=== PATIENT | male | born 1945 | race Caucasian/White ===

== ENCOUNTER → 2021-06-21 10:43 | Outpatient (CLI) | payer MEDICARE, SELFPAY ==
--- NOTE | ~2021-06-21 | XR_ITS ---
EXAMINATION: XR chest 2V 06/21/2021 11:14 INDICATION: Chest pain PROCEDURE: 2 view chest COMPARISON: No prior studies for comparison. FINDINGS: The lungs are clear. The cardiomediastinal silhouette is within normal limits. There are no pleural effusions. There is no pneumothorax suspected. IMPRESSION: 1: NO ACUTE CARDIOPULMONARY DISEASE. Reviewed, dictated and finalized at location B.
== END ==
PROVIDERS: PCP Family Medicine; Visit Provider Family Medicine
DX: R07.9 Chest pain, unspecified (principal)
CPT/HCPCS: 71046

== ENCOUNTER 2022-01-10 01:16 | Day surgery (SDC) | payer MEDICARE, SELFPAY ==
[2021-12-06 14:11] VITALS: BMI 25.7
--- NOTE | 2021-12-25 13:20 | PC.NURSE ---
Patient has updated med list and instructions clarified.
--- NOTE | 2022-01-09 17:11 | PM.HPGS ---
History of Present Illness History of Present Illness Consent: Risks, benefits, and alternatives have been discussed and questions answered. Patient agrees to proceed with procedure. Chief complaint: neoplasm screening Narrative: Leandro Salinas is a 76 year old male referred for colon cancer screening. His last colonoscopy was 10 years ago Review of Systems Review of Systems: All systems reviewed & are unremarkable except as noted in HPI and below PMFSH Past Medical History Medical History BPH (benign prostatic hyperplasia) CAD (coronary artery disease) Hyperlipidemia Hypertension Social History Social History Smoking packs per day: 2 Smoking cigarettes per day: 40.0 Smoking status: Former smoker Tobacco type: cigarettes Alcohol intake: current Drinks per week: 1 Substance use: never Substance use type: does not use Living arrangements: with family Spiritual care concerns: No Meds Home Medications and Allergies Home Medications Medication Instructions Recorded Confirmed Type amlodipine 10 mg tablet 5 mg PO DAILY 07/28/20 01/10/22 History aspirin 81 mg tablet,delayed 81 mg PO DAILY 07/28/20 12/06/21 History release (Adult Aspirin Regimen) atorvastatin 10 mg tablet 10 mg PO DAILY 07/28/20 12/06/21 History lisinopril 10 mg tablet 10 mg PO DAILY 07/28/20 12/06/21 History metoprolol succinate 25 mg 25 mg PO DAILY 07/28/20 01/10/22 History tablet,extended release 24 hr ferrous sulfate 325 mg (65 mg 325 mg PO DAILY 12/06/21 12/06/21 History iron) tablet tamsulosin 0.4 mg capsule 0.4 mg PO DAILY 12/06/21 12/06/21 History Allergies Allergy/AdvReac Type Severity Reaction Status Date / Time Penicillins Allergy Intermediate ITCHING, Verified 12/06/21 13:57 REDNESS,SWELLING Exam Resp: Auscultation: clear to auscultation bilaterally Cardio: Rate: regular rate Rhythm: regular rhythm GI: GI Palp: Yes Soft to palpation and No Tenderness to palpation present (GI) Assessment and Plan Assessment and plan (1) Colon cancer screening: Code(s): Z12.11 - Encounter for screening for malignant neoplasm of colon Status: Acute Assessment and Plan: Colonoscopy with possible biopsy or polypectomy or cautery or injection of substances.
[2022-01-10 06:23] VITALS: BP 148/91; PULSE 90; RESP 20; TEMP 36.4; O2SAT 100
[2022-01-10] MEDS: LACTATED RINGERS 1,000 ML 150 ML IV CONT (06:31)
--- NOTE | 2022-01-10 07:14 | P.PNAN_ITS ---
Anes - Initial Pre Proc Eval Procedure: Operation Date: 01/10/22 07:30 Proposed Procedures p Screening Colonoscopy - Joshua Tomlinson MD Date/Time: 01/10/22 07:14 Surgeon: Joshua Tomlinson MD Pre Op Diagnosis: neoplasm screening Patient Data Age: 76 Gender: M Height: 1.65 m Weight: 70 kg Last Vital Signs Temp 36.4 C L 01/10/22 06:23 Pulse 90 01/10/22 06:23 Resp 20 01/10/22 06:23 BP 148/91 H 01/10/22 06:23 Pulse Ox 100 01/10/22 06:23 O2 Del Method Room Air 01/10/22 06:23 Allergies Allergy/AdvReac Type Severity Reaction Status Date / Time Penicillins Allergy Intermediate ITCHING, Verified 12/06/21 13:57 REDNESS,SWELLING Home Medications Medication Instructions Recorded Confirmed Type amlodipine 10 mg tablet 5 mg PO DAILY 07/28/20 01/10/22 History aspirin 81 mg tablet,delayed 81 mg PO DAILY 07/28/20 12/06/21 History release (Adult Aspirin Regimen) atorvastatin 10 mg tablet 10 mg PO DAILY 07/28/20 12/06/21 History lisinopril 10 mg tablet 10 mg PO DAILY 07/28/20 12/06/21 History metoprolol succinate 25 mg 25 mg PO DAILY 07/28/20 01/10/22 History tablet,extended release 24 hr ferrous sulfate 325 mg (65 mg 325 mg PO DAILY 12/06/21 12/06/21 History iron) tablet tamsulosin 0.4 mg capsule 0.4 mg PO DAILY 12/06/21 12/06/21 History Patient hx anesthesia problems: none Family hx anesthesia problems: none Results Review: All pre-operative results and documents have been reviewed as part of the pre- operative evaluation. [facility] Past Medical History Medical History BPH (benign prostatic hyperplasia) CAD (coronary artery disease) Hyperlipidemia Hypertension Social History Social History (Updated 01/10/22 @ 07:24 by Jasson Clancy DO) Smoking packs per day: 1 Smoking cigarettes per day: 20.0 Years smoked: 20 Smoking pack-years: 20.00 Smoking status: Former smoker Tobacco type: cigarettes Smoking end date: 04/08/85 Alcohol intake: current Drinks per week: 1 Substance use: never Substance use type: does not use Living arrangements: with family Spiritual care concerns: No Anes - Eval Final PreProcedure Day of Procedure 01/10/22 07:14 Patient weight: overweight Heart: regular rate and rhythm Lungs: clear to auscultation Airway: Mallampati scale class 1 Neurological: alert and oriented Last oral intake: >/= 8 hours ASA classification: III Emergent: no Anesthetic plan: proceed Anesthesia type and monitoring: general GIVS and standard monitoring Results Review: All pre-operative results and documents have been reviewed as part of the pre- operative evaluation. Informed Consent: The patient's anesthetic plan and its attendant risks and benefits were discussed with the patient/family/POA. Questions were solicited and answers provided to the satisfaction of the patient/family/POA.
[2022-01-10 07:45] VITALS: BP 86/56; PULSE 70; RESP 17; O2SAT 99
[2022-01-10 07:55] VITALS: BP 109/63; PULSE 71; RESP 16; O2SAT 100
[2022-01-10 08:05] VITALS: BP 122/77; PULSE 70; RESP 22; O2SAT 100
== END 2022-01-10 08:15 | disposition home or self-care (01) ==
PROVIDERS: PCP Family Medicine; Visit Provider Internal Medicine Gastroenterology
PROC: 0DJD8ZZ Inspection of Lower Intestinal Tract, Via Natural or Artificial Opening Endoscopic (ICD-10-PCS; CPT 45378; principal; 2022-01-10 07:30)
DX: Z12.11 Encounter for screening for malignant neoplasm of colon (principal); K64.8 Other hemorrhoids; K57.30 Diverticulosis of large intestine without perforation or abscess without bleeding; Z79.82 Long term (current) use of aspirin; N40.0 Benign prostatic hyperplasia without lower urinary tract symptoms; I25.10 Atherosclerotic heart disease of native coronary artery without angina pectoris; E78.5 Hyperlipidemia, unspecified; I10 Essential (primary) hypertension; Z87.891 Personal history of nicotine dependence
CPT/HCPCS: G0121; J2704; J7120

== ENCOUNTER 2023-05-31 13:48 | Outpatient (CLI) | payer MEDICARE, SELFPAY ==
--- NOTE | 2023-05-31 14:00 | ECG_ITS ---
Measurements Intervals [place] Rate: 78 P: 63 TN: 168 QRS: 39 QRSD: 150 T: 103 QT: 418 QTc: 478 Interpretive Statements SINUS RHYTHM LEFT BUNDLE BRANCH BLOCK [120+ ms QRS DURATION, 80+ ms Q/S IN V1/V2, 85+ ms R IN I/aVL/V5/V6] ABNORMAL ECG NO PREVIOUS ECG AVAILABLE FOR COMPARISON Electronically Signed On 06-01-2023 14:33:26 [facility]ARD/[facility] by Orville Chapin M.D.
[2023-05-31 14:43] LABS: Basophils Percent Auto 0.3 % (0.2-1.2); Eosinophils Absolute Auto 0.1 K/mm3 (0-0.3); Eosinophils Percent Auto 1.1 % (0-4.4); Hematocrit 42.2 % (42.0-52.0); Hemoglobin 13.6 g/dL (14.0-18.0); Immature Granulocyte Absolute 0.02 K/mm3 (0.00-0.031); Immature Granulocyte Percent A 0.3 % (0-0.5); Lymphocytes Absolute Auto 1.45 K/mm3 (0.9-3.2); Lymphocytes Percent Auto 22.9 % (18.3-44.2); Mean Corpuscular HGB Conc 32.2 g/dl (32-36); Mean Corpuscular Hemoglobin 29.9 pg (26-34); Mean Corpuscular Volume 92.7 fl (80-100); Mean Platelet Volume 11.7 fl (7.4-10.4); Monocytes Absolute Auto 0.6 K/mm3 (0.1-0.6); Neutrophils Absolute Auto 4.2 K/mm3 (1.3-6.7); Neutrophils Percent Auto 66.4 % (45.5-73.1); Platelet Count Result 174 k/mm3 (150-375); Red Blood Count 4.55 M/mm3 (4.6-6.20); Red Cell Distribution Width 14.3 % (11.5-14.5); White Blood Count 6.3 K/mm3 (4.5-10.0)
[2023-05-31 14:53] LABS: Prothrombin Time 13.2 Seconds (11.1-14.7)
[2023-05-31 14:54] LABS: Partial Thromboplastin Time 26.4 SECONDS (22.3-36.8)
[2023-05-31 14:58] LABS: Anion Gap 4 mmol/L (8-16); Blood Urea Nitrogen 25 mg/dL (9-20); Calcium 9.5 mg/dL (8.4-10.2); Carbon Dioxide 28 mmol/L (22-30); Chloride 104 mmol/L (98-107); Estimated Glomerular Filt Rate > 60; Glucose 80 mg/dL (65-110); Potassium 4.5 mmol/L (3.4-5.0); Sodium 136 mmol/L (137-145)
== END 2023-05-31 13:49 | disposition home or self-care (01) ==
PROVIDERS: PCP Family Medicine; Visit Provider Urology
DX: Z01.818 Encounter for other preprocedural examination (principal); N40.0 Benign prostatic hyperplasia without lower urinary tract symptoms; I10 Essential (primary) hypertension; I44.7 Left bundle-branch block, unspecified; R94.31 Abnormal electrocardiogram [ECG] [EKG]
CPT/HCPCS: 36415; 80048; 85025; 85610; 85730; 87086; 93005

== ENCOUNTER 2023-06-11 00:37 | Day surgery (SDC) | payer MEDICARE, SELFPAY ==
[2023-05-31 12:13] VITALS: BMI 23.8
--- NOTE | 2023-05-31 12:33 | PC.NURSE ---
PRE-OP INSTRUCTIONS, PLEASE READ CAREFULLY Report to the Outpatient Waiting Room, entrance under the green pavilion located off [facility], at time _1100_ on date _06/11/23_. Planned Procedure Time: _1 PM_. PACK A SMALL OVERNIGHT BAG AND LEAVE IN THE CAR Time changes happen often and if your time is changed the preop area will call you the afternoon before. - You and your visitor will be asked to self-screen and do not enter if you have any COVID symptoms. - A mask is optional within the hospital at this time. Patients may have clear liquids (water, carbonated beverages, clear teas, apple juice) until 3 hours prior to surgery (1000 AM) with a maximum of 20 ounces. - No food from midnight until time of surgery Take the following medications with a SIP of water the morning of surgery: _METOPROLOL_ DO NOT STOP ANY OF YOUR OTHER PRESCRIPTION MEDICATIONS PRIOR TO SURGERY ?EXCEPT THE FOLLOWING Medications to discontinue - __ASPIRIN INSTRUCTED BY DR. DOE_ Date to take last dose Please no make-up, nail english, hairspray, perfume, deodorant, or body powder the day of surgery. No jewelry (including any body piercings) or valuables the day of surgery, leave them at home. Please take a shower or bath the night before, or the morning of, surgery with an antibacterial soap. Wear comfortable, loose fitting clothing. Children are encouraged to wear pajamas. - Jewelry must be removed prior to entering the operating room. Rings and piercings that are not removed may be cut off. - The hospital will not accept responsibility for valuables. - Please leave all valuables, including medications, at home the day of surgery. If you are going home after surgery, a licensed charter driver must drive you home. - NO public transportation without another adult if you receive anesthesia. - We recommend that an adult stay with you for 24 hours following discharge. - We also recommend that you do not drive, make important decision, drink alcoholic beverages, or take any drugs that were not prescribed by your health care provider for at least 24 hours after your discharge time. Follow any additional instructions given to you from your surgeon. If you or anyone in your household have experienced Covid symptoms in the past week, please notify your surgeon or the nurse liaison at the phone number below for possible testing. Telephone instructions given to _PATIENT_and asked if any additional questions and then verbalized understanding. Patient advised to call surgeon office or pre surgery nurse liaison [phone] if any additional questions.
[2023-06-11] VITALS (13 sets, daily range): BP systolic 136–160; BP diastolic 59–81; PULSE 68–84; RESP 12–20; TEMP 36.1–37.1; O2SAT 97–100; BMI 24.0
--- NOTE | 2023-06-11 06:40 | PM.IMHP ---
H&P: HPI History of Present Illness Date/Time: 06/11/23 06:40 Chief Complaint: Urinary retention with bph Narrative: 77 yr old male with urinary retention and bph presents for turp. Review of Systems Review of Systems: All systems reviewed & are unremarkable except as noted in HPI and below PMFSH Past Medical History Medical History BPH (benign prostatic hyperplasia) CAD (coronary artery disease) Hyperlipidemia Hypertension Social History Social History Smoking packs per day: 1 Smoking cigarettes per day: 20.0 Years smoked: 20 Smoking pack-years: 20.00 Smoking status: Former smoker Tobacco type: cigarettes Second hand tobacco smoke exposure: No Smoking end date: 04/08/85 Alcohol intake: current Drinks per week: 1 Alcohol use details: RARELY - STATES 1-2 DRINKS/6 MONTHS Substance use: never Substance use type: does not use Living arrangements: with family Spiritual care concerns: No Meds Home Medications and Allergies Home Medications Medication Instructions Recorded Confirmed Type amlodipine 10 mg tablet 5 mg PO DAILY 07/28/20 05/31/23 History aspirin 81 mg tablet,delayed 81 mg PO DAILY 07/28/20 05/31/23 History release (Adult Aspirin Regimen) atorvastatin 10 mg tablet 10 mg PO DAILY 07/28/20 05/31/23 History lisinopril 10 mg tablet 10 mg PO DAILY 07/28/20 05/31/23 History metoprolol succinate 25 mg 25 mg PO DAILY 07/28/20 05/31/23 History tablet,extended release 24 hr ferrous sulfate 325 mg (65 mg 325 mg PO DAILY 12/06/21 05/31/23 History iron) tablet tamsulosin 0.4 mg capsule 0.4 mg PO DAILY 12/06/21 05/31/23 History finasteride 5 mg tablet 5 mg DAILY 05/31/23 05/31/23 History Allergies Allergy/AdvReac Type Severity Reaction Status Date / Time Penicillins Allergy Intermediate ITCHING, Verified 05/31/23 12:07 REDNESS,SWELLING Exam Const: General: cooperative and comfortable Resp: Effort & Inspection: normal respiratory effort Cardio: Rate: regular rate Rhythm: regular rhythm Assessment and Plan Assessment and plan (1) Urinary retention: Code(s): R33.9 - Retention of urine, unspecified Status: Acute Assessment and Plan: Proceed with TURP
--- NOTE | 2023-06-11 10:18 | WPDHPUPDATE1 ---
History and Physical Update Update Date/Time: 06/11/23 10:18 History and Physical has been reviewed, including an updated exam of the patient. There are NO changes in the patient's condition. Risks, benefits, and alternatives have been discussed and questions answered. Patient agrees to proceed with procedure. Proceed with turp
[2023-06-11] MEDS: LACTATED RINGERS 1,000 ML 30 ML IV CONT (11:00)
--- NOTE | 2023-06-11 11:15 | WPDANESEPPF ---
Anes - Initial Pre Proc Eval Procedure: Operation Date: 06/11/23 13:00 Proposed Procedures p Trans Urethral Resection Prostate - Bronson Thurston MD Date/Time: 06/11/23 11:15 Surgeon: Bronson Thurston MD Pre Op Diagnosis: BPH Patient Data Age: 77 Gender: M Height: 1.7 m Weight: 69.8 kg Last Vital Signs Temp 98.7 F 06/11/23 11:07 Pulse 76 06/11/23 11:07 Resp 16 06/11/23 11:07 BP 146/73 H 06/11/23 11:07 Pulse Ox 99 06/11/23 11:07 O2 Del Method Room Air 06/11/23 11:07 Allergies Allergy/AdvReac Type Severity Reaction Status Date / Time Penicillins Allergy Intermediate ITCHING, Verified 06/11/23 10:42 REDNESS,SWELLING Home Medications Medication Instructions Recorded Confirmed Type amlodipine 10 mg tablet 5 mg PO DAILY 07/28/20 06/11/23 History aspirin 81 mg tablet,delayed 81 mg PO DAILY 07/28/20 06/11/23 History release (Adult Aspirin Regimen) atorvastatin 10 mg tablet 10 mg PO DAILY 07/28/20 06/11/23 History lisinopril 10 mg tablet 10 mg PO DAILY 07/28/20 06/11/23 History metoprolol succinate 25 mg 25 mg PO DAILY 07/28/20 06/11/23 History tablet,extended release 24 hr ferrous sulfate 325 mg (65 mg 325 mg PO DAILY 12/06/21 06/11/23 History iron) tablet tamsulosin 0.4 mg capsule 0.4 mg PO DAILY 12/06/21 06/11/23 History finasteride 5 mg tablet 5 mg DAILY 05/31/23 06/11/23 History Patient hx anesthesia problems: none Family hx anesthesia problems: none Results Review: All pre-operative results and documents have been reviewed as part of the pre-operative evaluation. [facility] Past Medical History Medical History BPH (benign prostatic hyperplasia) CAD (coronary artery disease) Hyperlipidemia Hypertension Social History Social History Smoking packs per day: 1 Smoking cigarettes per day: 20.0 Years smoked: 20 Smoking pack-years: 20.00 Smoking status: Former smoker Tobacco type: cigarettes Second hand tobacco smoke exposure: No Smoking end date: 04/08/85 Alcohol intake: current Drinks per week: 1 Alcohol use details: RARELY - STATES 1-2 DRINKS/6 MONTHS Substance use: never Substance use type: does not use Living arrangements: with family Spiritual care concerns: No Anes - Eval Final PreProcedure Day of Procedure 06/11/23 11:15 Patient weight: normal Heart: regular rate and rhythm Lungs: clear to auscultation Airway: Mallampati scale class II Neurological: alert and oriented Last oral intake: >/= 8 hours ASA classification: III Emergent: no Anesthetic plan: proceed Anesthesia type and monitoring: general LMA and standard monitoring Results Review: All pre-operative results and documents have been reviewed as part of the pre-operative evaluation. Informed Consent: The patient's anesthetic plan and its attendant risks and benefits were discussed with the patient/family/POA. Questions were solicited and answers provided to the satisfaction of the patient/family/POA.
[2023-06-11] MEDS: ceFAZolin 2 GM/D5W 50 ML 2 GM/50 ML BAG IVPB (11:21)
[2023-06-11] MEDS: LIDOCAINE HCL 2% GEL UROJET 10 ML PKG MUCOUS MEM (11:28)
--- NOTE | 2023-06-11 12:14 | P.OP_ITS ---
Procedure Note - Detailed Date of Procedure 06/11/23 Pre-op Diagnosis BPH, urinary retention Post-op Diagnosis Same (Meatal stenosis) Procedure Performed Urethral dilation, transurethral resection of prostate Surgeon Bronson Thurston MD Anesthesia General Description of Procedure Patient was taken the operative suite correctly identified. Once anesthesia was obtained was placed in dorsal lithotomy position and prepped and draped usual sterile fashion. A 22 [place] scope would not fit into the meatus. I thus dilated the meatus up to 28 Panamanian. Twenty-four Panamanian resectoscope sheath was then inserted. He has some mild lateral lobe hypertrophy but more impressively a median lobe. The bladder itself has moderate trabeculation without any tumors. I resected the median lobe 1st. The prostate was circumferentially resected from the bladder neck to the verumontanum. External sphincter was intact at termination of procedure. Hemostasis was achieved using electrocautery and a rollerball. Chips were sent for analysis. He did have quite a bit of prostatic calculi at the 6 o'clock position just proximal to the verumontanum. 2% viscous lidocaine was inserted into the urethra. Twenty-four Panaman[address] was placed with 25 cc in the balloon. This was connected to continuous bladder irrigation. Patient is taken recovery stable condition. He will be admitted for CBI. This completes dictation. Please send a copy of op note to my office. Estimated Blood Loss 50 Drains Yes Packing No Pathology Yes Complications No immediate complications Condition Stable Disposition PACU
--- NOTE | 2023-06-11 14:27 | ADMGEN ---
This patient, Leandro Salinas, was admitted to Medical Room 344-01. Patient/family oriented to hospital policies and general routines including ID bracelet, bed and alarms, visiting hours, pain management, procedures, bathroom and other care routines, personal items, smoking policy, room service/diet, and visiting hours. Information on how to activate the Rapid Response Team has been discussed. Patient/Family are encouraged to report perceived risks to care and to ask questions if they do not understand what they are told or what they should do.
[2023-06-11] MEDS: DOCUSATE SODIUM 100 MG CAPSULE PO (16:58)
[2023-06-11] MEDS: HYDROcodone/acetaminophen (*CRX) 5-325 MG TABLET 1 TAB PO ×2 (16:58→21:34)
[2023-06-11] MEDS: ceFAZolin 1 GM/NS 50 ML 1 GM/50 ML BAG IVPB (18:32)
[2023-06-11] MEDS: amLODIPine BESYLATE 2.5 MG TABLET PO (20:19)
[2023-06-11] MEDS: ATORVASTATIN 10 MG TABLET PO (20:19)
[2023-06-12] MEDS: ceFAZolin 1 GM/NS 50 ML 1 GM/50 ML BAG IVPB (03:44)
[2023-06-12 04:30] VITALS: BP 152/81; PULSE 80; RESP 21; TEMP 36.5; O2SAT 100
[2023-06-12 05:47] LABS: Hematocrit 41.1 % (42.0-52.0); Hemoglobin 13.2 g/dL (14.0-18.0)
[2023-06-12 06:11] LABS: Anion Gap 6 mmol/L (8-16); Blood Urea Nitrogen 14 mg/dL (9-20); Calcium 9.3 mg/dL (8.4-10.2); Carbon Dioxide 26 mmol/L (22-30); Chloride 102 mmol/L (98-107); Estimated CRCL calculation 63 ml/min; Estimated Glomerular Filt Rate > 60; Glucose 116 mg/dL (65-110); Potassium 4.2 mmol/L (3.4-5.0); Sodium 134 mmol/L (137-145)
[2023-06-12] MEDS: CEPHALEXIN 500 MG CAPSULE PO ×2 (08:46→12:59)
[2023-06-12] MEDS: TAMSULOSIN HCL 0.4 MG CAPSULE PO (08:47)
[2023-06-12] MEDS: lisinopriL 10 MG TABLET PO (08:47)
[2023-06-12] MEDS: DOCUSATE SODIUM 100 MG CAPSULE PO (08:47)
[2023-06-12 08:48] VITALS: PULSE 92
[2023-06-12] MEDS: METOPROLOL SUCCINATE EXT REL 25 MG TABCR PO (08:48)
--- NOTE | 2023-06-12 08:54 | WPDANESPN ---
Anes - Prog Note Post-Op Date/Time: 06/12/23 08:54 Vital Signs: Last Vital Signs Temp 36.5 C 06/12/23 04:30 Pulse 92 06/12/23 08:48 Resp 21 H 06/12/23 04:30 BP 152/81 H 06/12/23 04:30 Pulse Ox 100 06/12/23 04:30 O2 Del Method Room Air 06/11/23 13:30 O2 Flow Rate 8 06/11/23 12:35 Pain Score (VAS): 0 I/O: Intake & Output 06/11/23 06/12/23 06/12/23 23:59 07:59 15:59 Intake Total 290 600 Output Total 4050 Balance 290 -3450 Laboratory Tests 06/12/23 05:31 06/12/23 05:31 06/12/23 05:31 Hgb 13.2 L Hct 41.1 L Sodium 134 L Potassium 4.2 Chloride 102 Carbon Dioxide 26 Anion Gap 6 L BUN 14 D Creatinine 0.80 Estim Creat Clear Calc 63 Estimated GFR > 60 Glucose 116 H Calcium 9.3 Patient Feedback: Patient satisfied with anesthetic care. pt sitting up in bed eating breakfast, states no issues with anesthesia.
--- NOTE | 2023-06-12 13:44 | PM.DS ---
DS: Admitting Diagnosis Discharge Date 06/12/23 Admitting Diagnosis BPH/urinary retention DS: Discharge Diagnosis Discharge Diagnosis (1) Urinary retention: Code(s): R33.9 - Retention of urine, unspecified Status: Acute DS: Summary Hospital Course Hospital Course: Leandro Salinas is a 77-year-old male with a history of BPH and urinary retention who underwent urethral dilation and transurethral resection of prostate 06/11/[address] Thurston. He tolerated this procedure well. He was started on CBI postoperatively which was weaned as urine remained clear. CBI discontinued on postoperative day 1 and urine remained clear. His pain was very well controlled. He was feeling much improved overall. He will be discharged home with [place] catheter in place. Catheter care and management education was provided. He will take Bactrim once daily for the next 7 days and will follow-up as an outpatient for [place] catheter removal. He declined any narcotic pain medications and elects to use Tylenol as needed for any discomfort. Reviewed postoperative restrictions with patient and his . All questions answered and he was comfortable with plans for discharge home. Time Spent with Patient Time attestation: Total time spent providing and/or coordinating discharge services: 35 minutes Time spent: Greater than 30 minutes Exam Narrative: General: Awake, alert, comfortable, no acute distress HEENT: Normocephalic, atraumatic, sclerae anicteric Respiratory: Normal respiratory effort, no accessory muscle use Abdomen: Nondistended, soft, nontender : [place] catheter in place draining clear, faint light pink urine Skin: Normal coloration, warm and dry Neurologic: No focal neuro deficits noted Psychiatric: Appropriate mood and affect, judgment and insight intact DS: Data Data Completed and Pending Completed studies during hospitalization: Pending at discharge 06/11/23 12:04 Surgical [PTH] Routine Labs on day of discharge: Labs from last 24 hours 06/12/23 05:31 Hgb 13.2 L Hct 41.1 L Sodium 134 L Potassium 4.2 Chloride 102 Carbon Dioxide 26 Anion Gap 6 L BUN 14 D Creatinine 0.80 Estim Creat Clear Calc 63 Estimated GFR > 60 Glucose 116 H Calcium 9.3 Discharge Plan Discharge Patient Disposition: Home, Self-Care Discharge Instructions: Continue to use the [place] catheter. Call the office if you have any issues with your catheter, especially if it stops draining or becomes dislodged Avoid lifting >10 lbs Begin taking Bactrim once daily for the next 7 days Can resume taking aspirin on 06/17/2023 Patient Instructions: Antibiotic Form Stand Alone Forms: General Discharge Information, General Discharge Instructions Follow-up/Referrals: Bronson Thurston MD [Physician] - 1 Week Discharge Medications: New docusate sodium 100 mg Capsule 100 mg PO BID Qty: 20 0RF sulfamethoxazole-trimethoprim [Bactrim DS] 800-160 mg tablet 1 tablet PO DAILY Qty: 7 0RF Continued amlodipine 10 mg tablet 5 mg PO DAILY Rx Instructions: TAKE 1/2 TAB -TAKES AT HS metoprolol succinate 25 mg tablet extended release 24 hr 25 mg PO DAILY lisinopril 10 mg tablet 10 mg PO DAILY atorvastatin 10 mg tablet 10 mg PO DAILY Rx Instructions: TAKES AT HS finasteride 5 mg tablet 5 mg DAILY tamsulosin 0.4 mg capsule 0.4 mg PO DAILY ferrous sulfate 325 mg (65 mg iron) Tablet 325 mg PO DAILY Held aspirin [Adult Aspirin Regimen] 81 mg tablet,delayed release (DR/EC) 81 mg PO DAILY Hold Instructions: Resume on 06/17/23. Rx Instructions: TAKES AT HS
== END 2023-06-12 15:15 | disposition home or self-care (01) ==
LOC: ANHSURGERY 10:35 → ANH3MED 13:41
PROVIDERS: PCP Family Medicine; Visit Provider Urology
PROC: 0VT08ZZ Resection of Prostate, Via Natural or Artificial Opening Endoscopic (ICD-10-PCS; CPT 52601; principal; 2023-06-11 13:00)
DX: N40.1 Benign prostatic hyperplasia with lower urinary tract symptoms (principal); R33.8 Other retention of urine; I10 Essential (primary) hypertension; E78.5 Hyperlipidemia, unspecified; I25.10 Atherosclerotic heart disease of native coronary artery without angina pectoris; Z87.891 Personal history of nicotine dependence
CPT/HCPCS: 52601; 36415; 80048; 85014; 85018; 88305; A9270; J0690; J1100; J2371; J2405; J2704; J3010; J7120

== ENCOUNTER 2023-11-13 10:37 | Outpatient (CLI) | payer MEDICARE, SELFPAY ==
[2023-11-13 11:50] LABS: Alanine Aminotransferase 26 U/L (6-50); Aspartate Amino Transferase 40 U/L (17-59)
== END 2023-11-13 10:38 | disposition home or self-care (01) ==
LOC: ANHLAB 10:41
PROVIDERS: PCP Family Medicine; Visit Provider Podiatrist Foot & Ankle Surgery
DX: B35.1 Tinea unguium (principal)
CPT/HCPCS: 36415; 84450; 84460

== ENCOUNTER 2024-02-13 10:29 | Outpatient (CLI) | payer MEDICARE, SELFPAY ==
[2024-02-13 11:40] LABS: Alanine Aminotransferase 26 U/L (6-50); Aspartate Amino Transferase 39 U/L (17-59)
== END 2024-02-13 10:30 | disposition home or self-care (01) ==
PROVIDERS: PCP Family Medicine; Visit Provider Podiatrist Foot & Ankle Surgery
DX: B35.1 Tinea unguium (principal)
CPT/HCPCS: 36415; 84450; 84460

== ENCOUNTER 2024-04-24 06:53 | Outpatient (CLI) | payer MEDICARE, SELFPAY ==
[2024-04-24 07:41] LABS: Hematocrit 39.3 % (42.0-52.0); Hemoglobin 12.6 g/dL (14.0-18.0); Mean Corpuscular HGB Conc 32.1 g/dl (32-36); Mean Corpuscular Hemoglobin 30.2 pg (26-34); Mean Corpuscular Volume 94.2 fl (80-100); Mean Platelet Volume 11.5 fl (7.4-10.4); Platelet Count Result 181 k/mm3 (150-375); Red Blood Count 4.17 M/mm3 (4.6-6.20); Red Cell Distribution Width 13.9 % (11.5-14.5); White Blood Count 5.1 K/mm3 (4.5-10.0)
[2024-04-24 07:57] LABS: Alanine Aminotransferase 20 U/L (6-50); Albumin Level 3.9 g/dL (3.5-5.1); Alkaline Phosphatase 65 U/L (38-126); Anion Gap 3 mmol/L (4-12); Aspartate Amino Transferase 30 U/L (17-59); Bilirubin,Total 0.5 mg/dL (0.2-1.3); Blood Urea Nitrogen 27 mg/dL (9-20); Calcium 9.3 mg/dL (8.4-10.2); Carbon Dioxide 30 mmol/L (22-30); Chloride 104 mmol/L (98-107); Cholesterol 140 mg/dL (0-200); Estimated Glomerular Filt Rate > 60; Glucose 84 mg/dL (65-110); HDL Direct 70 mg/dL; Sodium 137 mmol/L (137-145); Triglycerides 52 mg/dL (<150)
[2024-04-24 08:02] LABS: Add Urine Microscopic? YES; Appearance Urine Turbid (Clear); Bacteria Urine 4+ /hpf; Bilirubin Urine Negative (Negative); Blood Urine 2+ (Negative); Color Urine Yellow (Yellow); Glucose Urine UA Negative (Negative); Ketones Urine Negative (Negative); Leukocyte Esterase Ur 3+ LEU/UL (Negative); Need Manual Microscopic Reviewed; Nitrate Urine Positive (Negative); Protein Urine 1+ mg/dL (Negative); Specific Grav Ur 1.017 (1.001-1.035); Squamous Epithelial Cell Urine Occasional /hpf (Few); Urobilinogen Urine 0.2 mg/dL (<2.0); WBC Clumps Urine Present /HPF; WBC Urine >100 /hpf (0-3); pH Urine 6.5 (5.0-9.0)
[2024-04-24 08:07] LABS: LDL Cholesterol Direct 54 mg/dL
[2024-04-24 08:11] LABS: Amorphous Sediment Urine Few
[2024-04-24 08:26] LABS: Prostate Specific Antigen 0.8 ng/mL (< OR = 4.0)
--- OUTSIDE RECORDS SUMMARY | 2024-04-30 05:01 | XMS_ITS | CONTINUITY OF CARE DOCUMENT ---
Author Name johnson ornelas Address Unknown Organization [facility] Address [address] [place] [address] Phone [phone] Care Team Providers Care Paleontological Helper Name Role Phone Kilo ACHARYA, Nilay Unavailable TORIN HUTCHINS MD Unavailable TORIN HUTCHINS MD Unavailable INSURANCE PROVIDERS Payer name Policy type / Coverage type [place] red democrat ID [employer] Commercial insuran ce company [id number] [employer] Medicare [id number]
--- OUTSIDE RECORDS SUMMARY | 2024-04-30 05:01 | XMS_ITS | Continuity of Care Document ---
Author Organization [email or web address] [facility] Address [address] [place] [address] Phone Care Team Providers Care Chain Forming Machine Operator Name Role Phone Bell OD, Melchor Unavailable Unavailable Procedures Procedure Date Cntct Lens Hydrophil Bifocal Medical Tax Eye Exam & Treatment Refraction Cntct Lens Hydrophil Bifocal [facility] Contact Lens/es Other Type [facility] Cntct Lens Hydrophil Bifocal [facility] Contact Lens Check Contact Lens Check Eye Exam & Treatment Refraction CL Replacement - Vistak[facility] Disp W/BW Soft [facility] CL Replacement - [facility] Disp W/BW Soft [facility] CL Replacement - [facility]istak[facility] Disp W/BW Soft [facility] Eye Exam & Treatment Refraction CL Replacement - Vistakon Disp W/BW Soft vArmour CL Replacement - Vistakon Disp W/BW Soft vArmour CL Replacement - Vistakon Disp W/BW Soft vArmour CL Replacement - [facility] Disp W/BW Soft [facility] Medical CL Replacement - [facility] Disp W/BW Soft [facility] Medical Eye Exam & Treatment Refraction CL Replacement - Vistak[facility] Disp W/BW Soft [facility] Medical CL Replacement - [facility]ist[facility] Disp W/BW Soft [facility] Medical Advance Directives Directive Yes / No Effective Date File Name No Information Encounters Encounter Description Practice Location Reason(s) For Visit Diagnoses Date Provider Providers Copied on Encounter [facility], [address] [place] [address] [address], [place], [place], [id number], tel:[phone] [facility] [place] No Information 4-201 0 Bell OD Melchor. [address], [place], [place], [facility], [place]. tel:[phone] [facility], [address] [place] [address] [address], [place], [place], [id number], [place] tel:[phone] [facility] [place] No Information 7-201 0 Bell OD Melchor. [address], [place], [place], [facility], [place]. tel:[phone] [facility], [address] [place] [address] [address], [place], [place], [id number], [place] tel:[phone] [facility] [place] No Information 5-201 0 Bell OD Melchor. [address], [place], [address], [place]. tel:[phone] [facility], [address] [place] [address] [address], [place], [place], [address], [place] tel:[phone] [facility] [place] No Information 6-201 0 Bell OD Melchor. [address], [place], [facility], [place]. tel:[phone] [facility], [address], [place], [place], [address], [place] tel:[phone] [facility] No Information Dec-0 9-200 9 Bell OD Melchor. [address], [place], [facility], . tel:[phone] [facility], [address] [place] [address] [address], [place], [place], [id number], [place] tel:[phone] [facility] No Information Nov-1 8-200 9 Bell OD Melchor. [address], [place], [facility], . tel:[phone] [facility], [address] [place] [address] [address], [place], [place], [id number], [place] tel:[phone] [facility] No Information Nov-1 1-200 9 Bell OD Melchor. [address], [place], [facility], [place]. tel:[phone] [facility], [address] [place] [address] [address], [place], [place], [id number], [place] tel:[phone] [facility] No Information Edwardo-0 1-200 9 Bell OD Melchor. [address], [place], [facility], [place]. tel:[phone] [facility], [address] [place] [address] [address], [place], [place], [address], [place] tel:[phone] [facility] No Information May-2 3-200 9 Bell OD Melchor. [address], [place], [facility], . tel:[phone] [facility], [address] [place] [address] [address], [place], [place], [address], [place] tel:[phone] [facility] No Information Nov-0 3-200 8 Bell OD Melchor. [facility] [address] , [address], [place], [facility], [place]. tel:[phone] [facility], [address] [place] [address] [address], [place], [place], [id number], [place] tel:[phone] [facility] No Information Edwardo-0 2-200 8 Bell OD Melchor. [address], [place], [facility], [place]. tel:[phone] [facility], [address] [place] [address] [address], [place], [place], [address], [place] tel:[phone] [facility] [place] No Information Matthias-3 0-200 8 Bell OD Melchor. [address] , [address], [place], [facility], [place]. tel:[phone] [facility], [address] [place] [address] [address], [place], [place], [address], [place] tel:[phone] [facility] No Information May-1 9-200 8 Bell OD Melchor. [facility] [address] , [address], [place], [facility], [place]. tel:[phone] [facility], [address] [place] [address] [address], [place], [place], [address], [place] tel:[phone] [facility] No Information Mar-3 1-200 8 Bell OD Melchor. [address] , [address], [place], [facility], [place]. tel:[phone] [facility], [address] [place] [address] [address], [place], [place], [address], [place] tel:[phone] [facility] No Information Dec-2 8-200 7 Bell OD Melchor. [address] [place], [place] [address]ate Center , [address], [place], [facility], . tel:[phone] [facility], [address] [place] [address] [address], [place], [place], [address], tel:[phone] [facility] No Information Aug-0 8-200 7 Bell OD Melchor. [address] [place], [place] [address]ate Center , [address], [place], [facility], [place]. tel:[phone] [facility], [address] [place] [address] [address], [place], [place], [address], tel:[phone] [facility] No Information Matthias-2 7-200 7 Bell OD Melchor. [address] [place] [address] [address], [address], [place], [facility], [place]. tel:[phone] [facility], [address] [place] [address] [address], [place], [place], [id number], tel:[phone] [facility] No Information Apr-2 0-200 7 Bell OD Melchor. [address] [place] [address] [address], [address], [place], [facility], [place]. tel:[phone] [facility], [address] [place] [address] [address], [place], [place], [address], tel:[phone] [facility] No Information Dec-2 6-200 6 Bell OD Melchor. [address] [place], [place] [address]ate Center , [address], [place], [address], [place]. tel:[phone] Family History Family Member Type Diagnosis Age At Onset No Information Payers Payer name Insurance type Covered alliance party ID Authoriza tion(s) No Information Social History [...]
--- OUTSIDE RECORDS SUMMARY | 2024-04-30 05:01 | XMS_ITS | Clinical Summary ---
Author Organization [facility] Address [address] [place] [place] [address] Care Team Providers Care Security Advisor Name Role Phone Emory Hu Primary Care Provider Source Comments [facility],non-owned Affiliates and Associated Physician Practices is amultiple site organization consisting of ambulatory clinics and hospital sitesin [place], [place], [place] and [place]. This disclosure is being madepursuant to the Care Everywhere program and may not contain all information available regarding this patient. Last updated 17.[facility] Allergies Active Allergy Reactions Criticality Noted Date Comments Penicillins 12/14/2014 Medications * Be aware that medications may not be up to date on this document. Alwaysverify current medications with the patient. Medication Sig Dispensed Refills Start Date End Date Status aspirin (ASPIRIN) 81 MG tablet Take 81 mg by mouth once daily Active amLODIPine (NORVASC) 5 MG tablet Take 5 mg by mouth once daily Active atenolol (TENORMIN) 25 MG tablet Take 25 mg by mouth once daily Active meclizine (ANTIVERT) 12.5 MG tablet Take 12.5 mg by mouth 3 times daily as needed for Dizziness Active promethazine 12.5 mg in 0.25 ml gel Apply 12.5 mg to affected area every 4 hours as needed for Nausea/Vomiting Active Social History Tobacco Use Types Packs/Day Years Used Date Smoking Tobacco: Former Smokeless Tobacco: Never Alcohol Use Standard Drinks/Week Comments Yes 0 (1 standard drink = 0.6 oz pur e alcohol) Sex and Gender Information Value Date Recorded Sex Assigned at Not on file Gender Identity Not on file Sexual Orientation Not on file Last Filed Vital Signs Vital Sign Reading Time Taken Comments Blood Pressure - - Pulse - - Temperature - - Respiratory Rate - - Oxygen Saturation - - Inhaled Oxygen Concentration - - Weight 71.7 kg (158 lb) 12/14/2014 8:17 AM CDT Height 170.2 cm (5' 7 ) 12/14/2014 8:17 AM CDT Body Mass Index 24.75 12/14/2014 8:17 AM CDT Plan of Treatment Health Maintenance Due Date Last Done Comments MEDICARE AWV ? 12 MONTHS 1945 HEPATITIS C SCREENING 10/10/1963 DTAP/TDAP/TD VACCINES (1 - Tdap) 1964 PNEUMOCOCCAL VACCINE 50+ (1 of 1 - PCV) 10/15/1995 ZOSTER VACCINE (1 of 2) 10/15/1995 Respiratory Syncytial Virus (RSV) Vaccine Pt: or over 60 yrs (1 - 1-dose 75+ series) 2020 COVID-19 VACCINE ( - 2023-2 5 season) 2023 INFLUENZA VACCINE (#1) 2023 DEPRESSION SCREENING 04/08/2024 HEPATITIS B VACCINE Aged Out No longe r eligible based on patient's age to complete this topic HIB VACCINE Aged Out No longer eligi ble based on patient's age to complete this topic HPV VACCINE Aged Out No longer eligi ble based on patient's age to complete this topic MENINGOCOCCAL (Group B) VACCINE Aged Out No longer eligible based on patient's age to complete this topic MENINGOCOCCAL VACCINE Aged Out No stephanie evans eligible based on patient's age to complete this topic Care Teams Security Advisor Relationship Specialty Start Date End Date Emory Hu DO PCP - General Internal Medicine 11/08/14
--- OUTSIDE RECORDS SUMMARY | 2024-04-30 05:01 | XMS_ITS | Referral Summary ---
Author Organization [facility] Address [address] [place] [address] Phone Care Team Providers Care Forging Die Finisher Name Role Phone Shan Rubio MD Primary Care Provider Encounters Date Type Department Care Team Description 03/11/2024 9:00 AM DRILL PUNCH OPERATOR Office Visit [facility] Cardiology [address] [place] [address] Viv Gimenez NP Coronary artery disease involving [place] coronary artery of [place] heart without angina pectoris (Primary Dx); Lipid screening; Other cardiomyopathy (HCC); Hypertension, unspecified type from Last 3 Months Allergies Active Allergy Reactions Criticality Noted Date Comments Penicillins Rash,Swelling Medium Medications aspirin 81 mg tablet Take 1 tablet (81 mg total) by mouth daily Active metoprolol XL (TOPROL-XL) 25 mg 24 hr tablet TK 1 T PO QD 4 8 Active amLODIPine (NORVASC) 10 mg tablet 0.5 tablets (5 mg total) 8 Active ferrous sulfate 325 mg (65 mg of elemental iron) tabletIndication s:Iron Deficiency Anemia Take 1 tablet (325 mg total) by mouth daily with breakfast Active lisinopriL (PRINIVIL,ZESTRI L) 10 mg tabletIndication s:Cardiomyopathy , unspecified type (HCC) Take 1 tablet by mouth once daily 90 tablet 3 1 Active tamsulosin (FLOMAX) 0.4 mg extended release capsule 1 Active atorvastatin (LIPITOR) 10 mg tabletIndication s:Abnormal nuclear stress test Take 1 tablet by mouth nightly 90 tablet 3 1 Active terbinafine (LamiSIL) 250 mg tablet Take 1 tablet (250 mg total) by mouth daily 4 Active Active Problems Problem Noted Date Diagnosed Date Myocardiopathy (CMS/HCC) 03/11/2024 Hypertension 03/11/2024 Coronary artery disease invo lving [place] coronary artery of [place] heart without angina pectoris 07/22/2018 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 Quit in Dec 1985. 36years not smoking! Alcohol Use Standard Drinks/Week Comments No 0 (1 standard drink = 0.6 oz pur e alcohol) SOCIAL DRINKER Sex and Gender Information Value Date Recorded Sex Assigned at Not on file Legal Sex Male 4:26 AM DRILL PUNCH OPERATOR Gender Identity Male 01/23/2021 8:46 PM CDT Sexual Orientation Not on file Last Filed Vital Signs Vital Sign Reading Time Taken Comments Blood Pressure 180/96 03/11/2024 9:04 AM DRILL PUNCH OPERATOR Pulse 77 03/11/2024 9:04 AM DRILL PUNCH OPERATOR Temperature - - Respiratory Rate 12 10/08/2019 8:28 AM CDT Oxygen Saturation 99% 03/11/2024 9:04 AM DRILL PUNCH OPERATOR Inhaled Oxygen Concentration - - Weight 70.8 kg (156 lb) 03/11/2024 9:04 AM DRILL PUNCH OPERATOR Height 165.1 cm (5' 5 ) 03/11/2024 9:04 AM DRILL PUNCH OPERATOR Body Mass Index 25.96 03/11/2024 9:04 AM DRILL PUNCH OPERATOR Plan of Treatment Not on file Procedures Procedure Name Priority Date/Time Associated Diagnosis Comments POCT LIPID PANEL Routine 03/11/2024 9:14 AM DRILL PUNCH OPERATOR Lipid screening from Last 3 Months Results * POCT lipid panel (03/11/2024 9:14 AM DRILL PUNCH OPERATOR) Cholesterol, POC 169 mg/dL HDL, POC 92 mg/dL Triglycerides, POC 56 mg/dL LDL Cholesterol POC 66 mg/dL Chol/HDL Ratio, POC 0.7 Non-HDL Cholesterol, POC 77 mg/dL Cholesterol Total, POC 169 mg/dL Capillary blood 03/11/2024 9 :14 AM DRILL PUNCH OPERATOR us Viv Gimenez NP POINT OF CARE TEST ORDERABLE S Edited Result - Final from Last 3 Months Insurance MEDICARE COMMERCIAL GENERIC MEDICARE [employer] SENIOR SUPPLEMENT MEDICARE COMMERCIAL GENERIC Care Teams Forging Die Finisher Relationship Specialty Start Date End Date Rubio, Shan Cristofer, MD [address] [facility] [address] [place] [address] PCP - General Family Medicine 03/11/24
--- OUTSIDE RECORDS SUMMARY | 2024-04-30 05:01 | XMS_ITS | Clinical Summary ---
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 Pain of hand 07/01/2012 Surgical follow-up care 07/25/2010 Encounters Date Type Department Care Team Description 03/11/2024 9:00 AM EDUCATION PROFESSIONAL Office Visit [facility] Cardiology [address] [place] [address] Viv Gimenez NP Coronary artery disease involving [place] coronary artery of [place] heart without angina pectoris (Primary Dx); Lipid screening; Other cardiomyopathy (HCC); Hypertension, unspecified type from Last 3 Months Surgical History Surgery Date Site/Laterality Comments CARDIAC CATHETERIZATION FRACTURE SURGERY 1999 HERNIA REPAIR 1998 or 1999 Medical History Medical History Date Comments Carotid artery disease (HCC) LBBB (left bundle branch block) Arthritis ? Cancer (CMS/HCC) (HCC) 2010 Hypertension ? Family History Medical History Relation Name Comments Cancer Father Emory Salinas Lung cancer Father Emory Salinas Arthritis Mother Kaykay Salinas Hypertension Mother Kaykay Salinas Relation Name Status Comments Father Emory Salinas (Age 68) Mother Kaykay Salinas (Age 102) Social History Tobacco Use Types Packs/Day Years [...] on file Legal Sex Male 4:26 AM EDUCATION PROFESSIONAL Gender Identity Male 01/23/2021 8:46 PM CDT Sexual Orientation Not on file Obstetrics History Last Filed Vital Signs Vital Sign Reading Time Taken Comments Blood Pressure 180/96 03/11/2024 9:04 AM EDUCATION PROFESSIONAL Pulse 77 03/11/2024 9:04 AM EDUCATION PROFESSIONAL Temperature - - Respiratory Rate 12 10/08/2019 8:28 AM CDT Oxygen Saturation 99% 03/11/2024 9:04 AM EDUCATION PROFESSIONAL Inhaled Oxygen Concentration - - Weight 70.8 kg (156 lb) 03/11/2024 9:04 AM EDUCATION PROFESSIONAL Height 165.1 cm (5' 5 ) 03/11/2024 9:04 AM EDUCATION PROFESSIONAL Body Mass Index 25.96 03/11/2024 9:04 AM EDUCATION PROFESSIONAL Plan of Treatment Health Maintenance Due Date Last Done Comments Depression Screening 1945 Fall Risk Assessment 1945 Hepatitis C Screening 1945 DTaP/Tdap/Td Vaccine (1 - Tdap) 1956 Hepatitis B Screening 10/15/1963 Zoster Vaccine (1 of 2) 10/15/1995 Abdominal Aortic Aneurysm (A AA) Screen 2010 Pneumococcal vaccine 65+ (1 of 1 - PCV) 2010 Well Visit 65+ 2010 Covid-19 Vaccine ( season) 2023 01/02/2021, 06/20/2020, 05/30/2020 Influenza Vaccine (#1) 2023 Procedures Procedure Name Priority Date/Time Associated Diagnosis Comments POCT LIPID PANEL Routine 03/11/2024 9:14 AM EDUCATION PROFESSIONAL Lipid screening from Last 3 Months Results * POCT lipid panel (03/11/2024 9:14 AM EDUCATION PROFESSIONAL) Cholesterol, POC 169 mg/dL HDL, POC 92 mg/dL Triglycerides, POC 56 mg/dL LDL Cholesterol POC 66 mg/dL Chol/HDL Ratio, POC 0.7 Non-HDL Cholesterol, POC 77 mg/dL Cholesterol Total, POC 169 mg/dL Capillary blood 03/11/2024 9 :14 AM EDUCATION PROFESSIONAL us Viv Gimenez NP POINT OF CARE TEST ORDERABLE S Edited Result - Final from Last 3 Months Insurance MEDICARE COMMERCIAL GENERIC Member Subscriber Plan / Payer (Ef fective 2013-Present) Name:Bessy Salinas Sr. Relation to Subscriber:Self Name:Bessy Salinas Sr. Payer ID:[id number] Group ID:[id number] Type:COMMERCIAL Address: [place] [id number] MEDICARE AETNA SENIOR SUPPLEMENT MEDICARE COMMERCIAL GENERIC Care Teams Conveyor Tender Concrete Mixing Plant Relationship Specialty Start Date End Date Shan Rubio MD [address] [facility] [address] [place] [address] PCP - General Family Medicine 03/11/24
--- OUTSIDE RECORDS SUMMARY | 2024-04-30 05:01 | XMS_ITS | Patient Health Summary ---
Author Organization [facility] Address [address] [facility] [place] [address] Care Team Providers Care Senior Firmware Engineer Name Role Phone Emory Hu DO Primary Care Provider Note from [facility],non-owned Affiliates and Associated Physician Practices is amultiple site organization consisting of ambulatory clinics and hospital sitesin [place], [place], [place] and [place]. This disclosure is being madepursuant to the Care Everywhere program and may not contain all information available regarding this patient. Last updated 17.[facility] Allergies * Penicillins Medications * Be aware that medications may not be up to date on this document. Alwaysverify current medications with the patient. * aspirin (ASPIRIN) 81 MG tablet Take 81 mg by mouth once daily * amLODIPine (NORVASC) 5 MG tablet Take 5 mg by mouth once daily * atenolol (TENORMIN) 25 MG tablet Take 25 mg by mouth once daily * meclizine (ANTIVERT) 12.5 MG tablet Take 12.5 mg by mouth 3 times daily as needed for Dizziness * promethazine 12.5 mg in 0.25 ml gel Apply 12.5 mg to affected area every 4 hours as needed for Nausea/Vomiting Social History Tobacco Use Types Packs/Day Years [...] Mass Index 24.75 12/14/2014 8:17 AM CDT Procedures * MRI CERVICAL SPINE WO CONTRAST(Performed 08/02/2014) Results * MRI SPINE CERVICAL NON CONTRAST (08/02/2014) Anatomical Region Laterality Modality Pelvis Other Jose Wooten MD MR ORDERABLES Care Teams Senior Firmware Engineer Relationship Specialty Start Date End Date Emory Hu DO PCP - General Internal Medicine 11/08/14
--- OUTSIDE RECORDS SUMMARY | 2024-04-30 05:01 | XMS_ITS | Data Portability ---
Author Organization [facility] [place], Main Office Address [address] [place] [address] Care Team Providers Care Youth Worker Name Role Phone TORIN VILLALPANDO Primary Care Provider TORIN VILLALPANDO Referring Provider Assessment Encounter Date Assessment Date Assessment LastModified by Organization Details LastModified Time 02/04/2023 02/04/2023 This note is dictated and transcribed by [employer]. Gas Plant Specialist variances may occur. Despite proofreading, typographical errors may occur. [email or web address] Not available 02/04/2023 12:43:17 Plan of Treatment Reminders Order Date Submit Date Provider Last Modified By Organization Details Last Modified Time Details Appointments None recorded. Lab lipid panel, serum [address] (Lab), [address] [place], [address], 10:31:33 hepatic function panel, serum [address] (Lab), [address] [place], [address], 10:31:59 glycohemog lobin, total, blood [address] (Lab), [address] [place], [address], 10:30:42 CBC w/ auto diff [address] (Lab), [address] [place], [address], 10:30:19 BMP, serum or plasma [address] (Lab), [address] [place], [address], 10:30:56 PSA, serum or plasma [address] (Lab), [address] [place], [address], 10:23:59 Referral None recorded. Procedures None recorded. Surgeries None recorded. Imaging None recorded. Medication Orders None recorded. Patient TargetsNo targets recorded. Patient Instructions Encounter Date Encounter Id Patient Instructions Last Modified By Organization Details Last Modified Time 10/29/2022 [id number] dementia rating scale-2* JUSTYN Not available 10/29/2022 10:29:42 alcohol misuse* JUSTYN Not available 10/29/2022 10:30:11 depression screening* JUSTYN Not available 10/29/2022 10:30:33 multi-dimensiona l health assessment questionnaire* JUSTYN Not available 10/29/2022 10:29:56 advance care planning: care instructions Not available 10/29/2022 09:43:19 advance directiv es: care instructions Not available 10/29/2022 09:43:19 [place] Advance Directives Not available 10/29/2022 09:43:19 risk assessment* JUSTYN Not available 10/29/2022 10:32:34 Personalized a lt Plan and Screening Recommendations Advance Directives - Do you have one? Yes Advance Directives - Do we have your advance directive on file in your health record? Primary Prevention/Interven tion (prevents or decreases the chance of common diseases from occurring) Smoking Risk: Non Smoker Alcohol Misuse Screening: Negative Weight: Appropriate Physical activity: Appropriate physical activity Nutrition: Good Fall Risk (screened today): Low Intermediate Refer to attached handout Preventing Falls: After your Visit Vaccines Pneumococcal: Ordered Recommended today Recommended today, but you have declined Influenza: Chronic Disease Risks Stroke: Low Risk Intermediate Risk Heart Attack: Low risk Intermediate Risk Clogging of the Arteries: Low risk Intermediate Risk Diabetes: Low Risk I have no recommendations Secondary Prevention/Interven tion (detects treatable diseases before they may cause symptoms, disability, or ) Prostate Cancer Screening: Colon Cancer Screening: Colonoscopy Date Screening Last Performed: 01/10/22 Eye Disease Screening: Dementia Risk: Low I have no recommendations Depression Screening: Negative Not available 10/29/2022 09:42:41 Reason for Referral None Reported. Results Created Date Observation Date Name Description Value Unit Range Abnormal Flag Note LastModifiedBy Organization Detail LastModifiedTime 10/30/1910/29/2022 CBC/C OMPLE TE BLD COUNT W/DIF F white blood cells 4.7 x10'3 /uL 4.2-10 .8 Not Available [facility] (Lab) [address] [place], [address], 10/29/2022 19:39:23 10/30/1910/29/2022 CBC/C OMPLE TE BLD COUNT W/DIF F red blood cells 4.32 x10'6 /uL 4.10-5 .80 Not Available [facility] (Lab) [address] [place], [address], 10/29/2022 19:39:23 10/30/1910/29/2022 CBC/C OMPLE TE BLD COUNT W/DIF F hemoglobin 13.2 g/dL 13.2-1 7.0 Not Available [facility] (Lab) [address] [place], [address], 10/29/2022 19:39:23 10/30/1910/29/2022 CBC/C OMPLE TE BLD COUNT W/DIF F hematocrit 41.3 % 39.3-5 0.0 Not Available [facility] (Lab) [address] [place], [address], 10/29/2022 19:39:23 10/30/1910/29/2022 CBC/C OMPLE TE BLD COUNT W/DIF F mean red cell volume 95.6 fL 80.0-9 7.0 Not Available [facility] (Lab) [address] [place], [address], 10/29/2022 19:39:23 10/30/1910/29/2022 CBC/C OMPLE TE BLD COUNT W/DIF F mean red cell hemoglobin 30.6 pg 27.0-3 3.0 Not Available [facility] (Lab) [address] [place], [address], 10/29/2022 19:39:23 10/30/1910/29/2022 CBC/C OMPLE TE BLD COUNT W/DIF F mean RBC HGB concentratio n 32.0 g/dL 31.0-3 6.0 Not Available [facility] (Lab) [address] [place], [address], 10/29/2022 19:39:23 10/30/1910/29/2022 CBC/C OMPLE TE BLD COUNT W/DIF F red cell distribution width 14.4 % 11.8-1 5.5 Not Available [facility] (Lab) [address] [place], [address], 10/29/2022 19:39:23 10/30/1910/29/2022 CBC/C OMPLE TE BLD COUNT W/DIF F platelets 195 x10'3 /uL 150-40 0 Not Available [facility] (Lab) [address] [place], [address], 10/29/2022 19:39:23 10/30/1910/29/2022 CBC/C OMPLE TE BLD COUNT W/DIF F mean platelet volume 12.1 fL 9.0-12 .4 Not Available [facility] (Lab) [address] [place], [address], 10/29/2022 19:39:23 10/30/1910/29/2022 CBC/C OMPLE TE BLD COUNT W/DIF F neutrophils 62.6 % 39.0-7 2.0 Not Available [facility] (Lab) [address] [place], [address], 10/29/2022 19:39:23 10/30/1910/29/2022 CBC/C OMPLE TE BLD COUNT W/DIF F lymphocytes 23.1 % 16.0-4 7.0 Not Available [facility] (Lab) [address] [place], [address], 10/29/2022 19:39:23 10/30/1910/29/2022 CBC/C OMPLE TE BLD COUNT W/DIF F monocytes 10.3 % 5.0-12 .0 Not Available [facility] (Lab) [address] [place], [address], 10/29/2022 19:39:23 10/30/1910/29/2022 CBC/C OMPLE TE BLD COUNT W/DIF F eosinophils 3.4 % 1.0-7. 0 Not Available [facility] (Lab) [address] [place], [address], 10/29/2022 19:39:23 10/30/1910/29/2022 CBC/C OMPLE TE BLD COUNT W/DIF F basophils 0.4 % 0.0-2. 0 Not Available [facility] (Lab) [address] [place], [address], 10/29/2022 19:39:23 10/30/1910/29/2022 CBC/C OMPLE TE BLD COUNT W/DIF F immature granulocytes 0.2 % 0.00-0 .50 Not Available [facility] (Lab) [address] [place], [address], 10/29/2022 19:39:23 10/30/1910/29/2022 CBC/C OMPLE TE BLD COUNT W/DIF F neutrophils, absolute count 2.93 x10'3 /uL 1.5-8. 0 Not Available [facility] (Lab) [address] [place], [address], 10/29/2022 19:39:23 10/30/1910/29/2022 CBC/C OMPLE TE BLD COUNT W/DIF F lymphocytes, absolute count 1.08 x10'3 /uL 1.07-3 .43 Not Available [facility] (Lab) [address] [place], [address], 10/29/2022 19:39:23 10/30/1910/29/2022 CBC/C OMPLE TE BLD COUNT W/DIF F monocytes, absolute count 0.48 x10'3 /uL 0.29-0 .99 Not Available [facility] (Lab) [address] [place], [address], 10/29/2022 19:39:23 10/30/1910/29/2022 CBC/C OMPLE TE BLD COUNT W/DIF F eosinophils, absolute count 0.16 x10'3 /uL 0.02-0 .53 Not Available [facility] (Lab) [address] [place], [address], 10/29/2022 19:39:23 10/30/1910/29/2022 CBC/C OMPLE TE BLD COUNT W/DIF F basophils, absolute count 0.02 x10'3 /uL 0.01-0 .08 Not Available [facility] (Lab) [address] [place], [address], 10/29/2022 19:39:23 10/30/1910/29/2022 CBC/C OMPLE TE BLD COUNT W/DIF F immature granulocytes ,absolute 0.01 x10'3 /uL 0.00-0 .05 Not Available [facility] (Lab) [address] [place], [address], 10/29/2022 19:39:23 10/30/1910/29/2022 CBC/C OMPLE TE BLD COUNT W/DIF F nucleated red blood cells 0.0 % -0 Not Available [facility] (Lab) [address] [place], [address], 10/29/2022 19:39:23 10/30/19 23 10/29/2022 CBC/C OMPLE TE BLD COUNT W/DIF F NRBC# 0.00 x10'3 /uL Not Available [facility] (Lab) [address] [place], [address], 10/29/2022 19:39:23 10/30/1910/29/2022 BASIC METAB OLIC PANEL sodium 138 mmol/ L 137-14 5 Not Available [facility] (Lab) [address] [place], [address], 10/29/2022 20:01:38 10/30/1910/29/2022 BASIC METAB OLIC PANEL potassium 4.2 mmol/ L 3.5-5. 1 Not Available [facility] (Lab) [address] [place], [address], 10/29/2022 20:01:38 10/30/1910/29/2022 BASIC METAB OLIC PANEL chloride 103 mmol/ L 98-107 Not Available [facility] (Lab) [address] [place], [address], 10/29/2022 20:01:38 10/30/1910/29/2022 BASIC METAB OLIC PANEL carbon dioxide 28 mmol/ L 22-30 Not Available [facility] (Lab) [address] [place], [address], 10/29/2022 20:01:38 10/30/19 23 10/29/2022 BASIC METAB OLIC PANEL anion gap 11.2 mmol/ L 14-22 low Not Available [facility] (Lab) [address] [place], [address], 10/29/2022 20:01:38 10/30/19 23 10/29/2022 BASIC METAB OLIC PANEL glucose 97 mg/dL 70-99 Not Available [facility] (Lab) [address] [place], [address], 10/29/2022 20:01:38 10/30/19 23 10/29/2022 BASIC METAB OLIC PANEL BUN 22 mg/dL 8-19 high Not Available [facility] (Lab) [address] [place], [address], 10/29/2022 20:01:38 10/30/19 23 10/29/2022 BASIC METAB OLIC PANEL creatinine 0.80 mg/dL 0.66-1 .25 Not Available [facility] (Lab) [address] [place], [address], 10/29/2022 20:01:38 10/30/19 23 10/29/2022 BASIC METAB OLIC PANEL GFR >60 Refer ence Range : [place] ge GFR Healt hy Adult : >60 mL/mi n/1.7 3 m2 Chron ic Kidne y Disea se: 15-60 mL/mi n/1.7 3 m2 Kidne y Failu re: <15/m L/min /1.73 m2 www.n iddk. nih.g ov The MDRD study equat ion has not been valid ated in child partha <18 years of age; pregn ant women ; the elder ly >85 years of age; or in some racia l or ethni c subgr oups, such as Hispa nics. Outsi de the valid ated glen eters , estim ated GFR is less accur ate, requi ring clini concepcion judgm ent on a case- by-ca se basis . Clini concepcion inter preta tion for other races and ages must be made by the gerad shoemaker. The MDRD study equat ion has not been valid ated for the evalu ation of serum creat inine relat ed to nutri umberto l statu s or medic ation usage . For modesto ns <18 years of age, a pedia tric GFR calcu lator is avail able on the [facility] websi te: https ://ww w.kid ramírez.o rg/pr ofess ional s/kdo qi/gf r_cal culat or Not Available [facility] (Lab) [address] [place], [address], 10/29/2022 20:01:38 10/30/1910/29/2022 BASIC METAB OLIC PANEL calcium 9.4 mg/dL 8.4-10 .2 Not Available [facility] (Lab) [address] [place], [address], 10/29/2022 20:01:38 10/30/19 23 10/29/2022 LIPID PANEL cholesterol 149 mg/dL 140-19 9 NIH JACK NSUS RECOM MENDA TION FOR VIV STERO L: ADULT CHILD LOW RISK: <200 <170 BORDE RLINE : <200- 239 ----- HIGH RISK: >240 >200 Not Available [facility] (Lab) [address] [place], [address], 10/29/2022 20:01:45 10/30/1910/29/2022 LIPID PANEL triglyceride s 59 mg/dL 0-150 NIH JACK NSUS REPOR T RECOM MENDA TION FOR TRIGL YCERI JOCELYN: ADULT CHILD LOW RISK: <150 ----- BODER LINE: 150-1 99 ----- HIGH RISK: >200 ----- Not Available [facility] (Lab) [address] [place], [address], 10/29/2022 20:01:45 10/30/1910/29/2022 LIPID PANEL HDL cholesterol 87 mg/dL 40- Not Available [facility] (Lab) [address] [place], [address], 10/29/2022 20:01:45 10/30/19 23 10/29/2022 LIPID PANEL LDL cholesterol, calculated 50 mg/dL 0-130 NIH JACK NSUS REPOR T RECOM MENDA TIONS FOR LDL: ADULT CHILD LOW RISK <130 <110 (OPTI MAL LDL) <100 ----- BORDE RLINE : 130-1 59 ----- HIGH RISK: >160 >130 A TRIGL YCERI DE RESUL T >400 INVAL IDATE S THE CALCU LATIO N FOR LDL FRACT IONAT ION - THE LDL RESUL T WILL NOT BE REPOR NATHANIEL. Not Available [facility] (Lab) [address] [place], [address], 10/29/2022 20:01:45 10/30/19 23 10/29/2022 HEPAT IC/LI CRUZ PANEL alkaline phosphatase 70 U/L 38-126 Not Available [facility] (Lab) [address] [place], [address], 10/29/2022 20:01:47 10/30/19 23 10/29/2022 HEPAT IC/LI CRUZ PANEL alanine aminotransfe rase 38 U/L 0-50 Not Available [facility] (Lab) [address] [place], [address], 10/29/2022 20:01:47 10/30/19 23 10/29/2022 HEPAT IC/LI CRUZ PANEL aspartate aminotransfe rase 45 U/L 15-46 Not Available [facility] (Lab) [address] [place], [address], 10/29/2022 20:01:47 10/30/19 23 10/29/2022 HEPAT IC/LI CRUZ PANEL bilirubin, total 0.50 mg/dL 0.20-1 .30 Not Available [facility] (Lab) [address] [place], [address], 10/29/2022 20:01:47 10/30/19 23 10/29/2022 HEPAT IC/LI CRUZ PANEL bilirubin, conjugated (direct) 0.00 mg/dL 0.00-0 .30 Not Available [facility] (Lab) [address] [place], [address], 10/29/2022 20:01:47 10/30/19 23 10/29/2022 HEPAT IC/LI CRUZ PANEL biliurubin,u ncong. (indirect) 0.40 mg/dL 0.00-1 .1 Not Available [facility] (Lab) [address] [place], [address], 10/29/2022 20:01:47 10/30/19 23 10/29/2022 HEPAT IC/LI CRUZ PANEL total protein 6.5 g/dL 6.3-8. 2 Not Available [facility] (Lab) [address] [place], [address], 10/29/2022 20:01:47 10/30/19 23 10/29/2022 HEPAT IC/LI CRUZ PANEL albumin 3.9 g/dL 3.0-4. 4 Not Available [facility] (Lab) [address] [place], [address], 10/29/2022 20:01:47 10/30/19 23 10/29/2022 HEPAT IC/LI CRUZ PANEL globulin 2.6 g/dL 2.6-4. 2 Not Available [facility] (Lab) [address] [place], [address], 10/29/2022 20:01:47 10/30/19 23 10/29/2022 HEPAT IC/LI CRUZ PANEL A/G ratio 1.5 ratio 1.0-2. 0 Not Available [facility] (Lab) [address] [place], [address], 10/29/2022 20:01:47 10/30/19 23 10/29/2022 PSA, TOTAL PSA, total 1.15 NG/mL 0.00-4 .00 Not Available [facility] (Lab) [address] [place], [address], 10/29/2022 20:38:47 10/30/19 23 10/29/2022 HEMOG LOBIN A1C HA1C 5.4 % 4.0-6. 0 Diabe marlena Scree alem Crite julius: <5.7% Consi stent with absen ce of diabe marlena 5.7-6 .4% Consi stent with incre ased risk for diabe marlena (pred iabet es) >OR=6 .5% Consi stent with diabe marlena REFER ENCE: Diabe marlena Care 2016, 39(Watson ppl.1 ):s13 -s22 Not Available [facility] (Lab) [address] [place], [address], 10/29/2022 21:33:13 Result Notes None recorded. Problems Name Problem SNOMED Code Status Onset Date Resolution Date Notes Provider Name and Address Organization Details Recorded Time Decreased hearing 387614357 Active Not Available [facility] 3 06:07:51 Bilateral wrist pain 1934923194215 9105 Active 2021 Not Available [facility] 3 06:07:51 Benign essential hypertensi on 4800229 Active Not Available [facility] 3 06:07:51 Plantar fasciitis of left foot 5361331671951 9101 Active 2017 Not Available [facility] 3 06:07:51 Impacted cerumen 09879200 Active Not Available [facility] 3 06:07:52 Cataract 839363142 Active Not Available [facility] 3 06:07:52 Peripheral venous insufficie ncy 24968055 Active Not Available [facility] 3 06:07:52 Benign prostatic hyperplasi a with outflow obstructio n 373538060 Active Not Available [facility] 3 06:07:52 Labyrinthi tis 62991761 Active Not Available [facility] 3 06:07:52 Tremor 57875165 Active Not Available [facility] 3 06:07:52 Benign prostatic hyperplasi a 092175807 Active Not Available [facility] 3 06:07:52 Orthostati c hypotensio n 83484564 Active Not Available [facility] 3 06:07:52 Carpal tunnel syndrome of left wrist 9259333064483 02 Active 2021 Not Available [facility] 3 06:07:52 Carpal tunnel syndrome of right wrist 3861598076510 08 Active 2021 Not Available [facility] 3 06:07:53 Rib pain 075960763 Active Not Available [facility] 3 06:07:53 Hand muscle weakness 399585764 Active Not Available [facility] 3 06:07:53 Dehydratio n 35658157 Active Not Available [facility] 3 06:07:53 Arthritis 6458786 Active 2017 Not Available [facility] 3 06:07:53 Hypertensi ve disorder 46981153 Active Not Available [facility] 3 06:07:53 Neuropathy 213707221 Active Not Available [facility] 3 06:07:53 Inguinal hernia 538532580 Active Not Available [facility] 3 06:07:54 Vertigo 953612376 Active Not Available [facility] 3 06:07:54 Dizziness 797675943 Active Not Available [facility] 3 06:07:54 Vomiting 872710269 Active Not Available [facility] 3 06:07:54 Nausea 547624636 Active Not Available [facility] 3 06:07:54 Muscle strain 39284871 Active Not Available [facility] 3 06:07:54 Disorder of bursa of shoulder region 77894799 Active Not Available [facility] 3 06:07:54 Varicose veins of lower extremity 37505368 Active Not Available [facility] 3 06:07:55 Hyperglyce fredy 18304013 Active Not Available [facility] 3 06:07:55 Spinal stenosis in cervical region 52319180 Active Not Available [facility] 3 06:07:55 Primary malignant neoplasm of skin of face 96885066 Active Not Available [facility] 3 06:07:55 Actinic keratosis 284318569 Active 2022 Torin Villalpando MD [address], [address], [place], [address] , [facility] 3 09:39:27 Hyperlipid emia 24124164 Active 2022 Torin Villalpando MD [address], [address], [place], [address] , [facility] 3 09:39:42 Impacted cerumen 38081566 Active 2022 Torin Villalpando MD [address], [address], [place], [address] , [facility] 3 08:56:55 Vaginitis 21508432 Active 2022 Torin Villalpando MD [address], [address], [place], [address] , [facility] 3 09:10:30 Dystrophia unguium 71930122 Active 2022 Milan Edward DPM [address], [address], [place], [address] , [facility] 3 12:41:59 Subungual hematoma of lesser toe 999321704 Active 2022 Milan Edward DPM [address], [address], [place], [address] , [facility] 3 12:42:40 Bunion 339683581 Active 2022 Milan Edward DPM [address], [address], [place], [address] , [facility] 3 12:43:20 Hammer toe 154648254 Active 2022 Milan Edward DPM [address], [address], [place], [address] , [facility] 3 12:43:31 Bunion 563709894 Active 2022 Milan Edward DPM [address], [address], [place], [address] , [facility] 3 12:43:40 Essential hypertensi on 43197661 Active 2023 Torin Villalpando MD [address], [address], [place], [address] , [facility] 4 09:37:49 Notes:allergies, cancer, pro state, numbness or tingling, cataracts/glaucoma, ringing in ears Problem Notes None recorded. Procedures Surgical History Date Name Laterality Status Provider Name and Address Organization Details Recorded Time 02/05/20 23 Nail Debridement completed Milan Edward DPM [address], [address], [place], [address], [facility] 02/04/2023 12:41:53 10/30/19 23 Medicare Wellness CPT Code, subsequent completed Shayy Stanley RN [place] [facility] [place] 10/25/2022 15:12:46 06/10/19 19 Cardiac Cath completed Not Available [facility] 023 05:58:45 07/02/19 12 colonoscopy completed Not Available [facility] 06/07/19 23 05:58:45 Imaging Results None recorded. Procedure Notes None recorded. Medical Equipment None Reported. Allergies Allergen ID Allergen Name Allergen Category Reaction Reaction Severity Criticality Documentation Date Start Date Code Code System Note Provider Name and Address Organization Details Recorded Time 70472 Product containin g penicilli n and antibioti c (product) medicatio n rash Not available Not available 06/06/2022 25851 05 SNOMED Not Available [facility] 3 06:19:31 Medications Name Sig Start Date Stop Date Status Note LastModified by Organization Details LastModified Time clindamycin HCl 300 mg capsule every 6 hours completed Not Available Not Available Not Available atorvastati n 10 mg tablet TAKE 1 TABLET BY MOUTH EVERY DAY active Not Available Not Available No t Available azithromyci n 250 mg tablet 03/16 completed Not Available Not Available Not Available valacyclovi r 1 gram tablet Take 1 tablet every 12 hours by oral route for 7 days. active Not Available Not Available No t Available promethazin e 12.5 mg tablet Take 1 tablet 3 times a day by oral route as needed. active Not Available Not Available No t Available atenolol 25 mg tablet TAKE 1 TABLET BY MOUTH EVERY DAY 01/28 completed Not Available Not Available Not Available clindamycin HCl 150 mg capsule active Not Available Not Available Not Available meclizine 12.5 mg tablet Take 1 tablet 3 times a day by oral route as needed. active Not Available Not Available No t Available amlodipine 5 mg tablet TAKE 1 TABLET BY MOUTH EVERY DAY active Not Available Not Available No t Available aspirin 81 mg tablet,kingsley yed release Take 1 tablet every day by oral route. 2012 active Not Available Not Available Not Avai lable triamcinolo ne acetonide 0.1 % topical cream APPLY THIN LAYER TOPICALLY TO THE AFFECTED AREA TWICE DAILY NEEDED FOR RASH active Not Available Not Available No t Available Zofran 4 mg tablet Take 1 tablet 3 times a day by oral route as needed. active Not Available Not Available No t Available tamsulosin 0.4 mg capsule TAKE 1 CAPSULE BY MOUTH EVERY DAY active Not Available Not Available No t Available amlodipine 10 mg tablet TAKE 1 TABLET BY MOUTH EVERY DAY 01/29 completed Not Available Not Available Not Available hydrocodone 7.5 mg-acetamin ophen 325 mg tablet every 6 hours as needed completed Not Available Not Available Not Available cephalexin 500 mg capsule TAKE 1 CAPSULE BY MOUTH EVERY 6 HOURS 03/29 completed Not Available Not Available Not Available lisinopril 10 mg tablet TAKE 1 TABLET BY MOUTH EVERY DAY active Not Available Not Available No t Available cephalexin 500 mg tablet Take 1 tablet twice a day by oral route for 14 days. active Not Available Not Available No t Available etodolac 400 mg tablet 2012 active Not Available Not Available Not Avai lable metoprolol succinate ER 25 mg tablet,exte nded release 24 hr TAKE 1 TABLET BY MOUTH EVERY DAY active Not Available Not Available No t Available ondansetron 4 mg disintegrat ing tablet TAKE 1 TABLET BY MOUTH THREE TIMES DAILY NEEDED 05/07 completed Not Available Not Available Not Available fluticasone propionate 50 mcg/actuati on nasal spray,suspe nsion 2 sprays each nostril qd active Not Available Not Available No t Available doxycycline hyclate 100 mg tablet TAKE 1 TABLET BY MOUTH TWICE DAILY FOR 7 DAYS 05/06 completed Not Available Not Available Not Available finasteride 5 mg tablet TAKE 1 TABLET BY MOUTH DAILY active Not Available Not Available No t Available naproxen 500 mg tablet Take 1 tablet twice a day by oral route with meals for 30 days. 10/06 completed Not Available Not Available Not Available sildenafil (pulmonary hypertensio n) 20 mg tablet TAKE 1-5 TABLETS BY MOUTH ONCE DAILY NEEDED active Not Available Not Available No t Available Bystolic 10 mg tablet Take 2 tablets every day by oral route for 90 days. active Not Available Not Available No t Available Bystolic 20 mg tablet Take 1 tablet(s) every day by oral route. active Not Available Not Available No t Available Paxlovid 300 mg (150 mg x 2)-100 mg tablets in a dose pack TAKE 1 DOSE (3 TABLETS) BY MOUTH TWICE A DAY FOR 5 DAYS 08/06 completed Not Available Not Available Not Available Vitals Date Recorded Body mass index (BMI) Body height Oxygen saturation Oxygen saturation in Arterial blood by Pulse oximetry Heart rate Body temperature Body weight Systolic blood pressure Diastolic blood pressure Provider Name and Address Organization Details Last Updated DateTime 3 27.1 kg/m2 165.1 cm 99 % 99 % 80 /min 97.6 [degF] 31196.5 6 g 128 mm[Hg] 76 mm[Hg] Not Available [facility] 3 06:00:21 Date Recorded Body height Body mass index (BMI) Body weight Body temperature Heart rate Oxygen saturation Oxygen saturation in Arterial blood by Pulse oximetry Provider Name and Address Organization Details Last Updated DateTime 3 165.1 cm 26.3 kg/m2 24332.5 9 g 97.7 [degF] 76 /min 98 % 98 % Savana Cleveland RN [place] [facility] 3 09:15:11 Date Recorded Systolic blood pressure Diastolic blood pressure Provider Name and Address Organization Details Last Updated DateTime 10/29/2022 140 mm[Hg] 70 mm[Hg] Torin Villalpando MD [address], [address], [place], [address], [facility] 10/29/2022 09:28:51 Date Recorded Body height Body mass index (BMI) Body weight Body temperature Heart rate Oxygen saturation Oxygen saturation in Arterial blood by Pulse oximetry Systolic blood pressure Diastolic blood pressure Provider Name and Address Organization Details Last Updated DateTime 3 165.1 cm 25.5 kg/m2 88489.6 3 g 98.7 [degF] 84 /min 97 % 97 % 156 mm[Hg] 88 mm[Hg] Jenni Elena CNA [facility] 3 08:39:30 Date Recorded Body height Body mass index (BMI) Body weight Heart rate Respiratory rate Oxygen saturation Oxygen saturation in Arterial blood by Pulse oximetry Systolic blood pressure Diastolic blood pressure Provider Name and Address Organization Details Last Updated DateTime 3 165.1 cm 25.5 kg/m2 58602.6 3 g 80 /min 14 /min 98 % 98 % 149 mm[Hg] 82 mm[Hg] Sherine Dickerson [facility] 3 12:23:40 Date Recorded Body height Body mass index (BMI) Body weight Body temperature Heart rate Provider Name and Address Organization Details Last Updated DateTime 05/06/2023 165.1 cm 25.6 kg/m2 44020.22 g 97.3 [degF] 85 /min Savana Cleveland RN [facility] 4 09:26:07 Date Recorded Oxygen saturation Oxygen saturation in Arterial blood by Pulse oximetry Systolic blood pressure Diastolic blood pressure Provider Name and Address Organization Details Last Updated DateTime 05/06/2023 97 % 97 % 138 mm[Hg] 88 mm[Hg] Torin Villalpando MD [address], [address], [place], [address], [facility] 4 09:43:28 Social History Question Answer Notes LastModified by Organizat ion Details LastModified Time Tobacco Smoking Status Former Smoker quit 1987 Not Available [facility] 06/06/2022 05:55:56 What Is Your Level Of Alcohol Consumption? Occasional [id number] Information not available 06/06/2022 What Is Your Level Of Caffeine Consumption? Occasional [id number] Information not available 06/06/2022 How Much Tobacco Do You Chew? None [id number].[id number] Information not available 06/06/2022 What Type Of Diet Are You Following? REGULAR MIGRATION.[id number] Information not available 06/06/2022 Which Illicit Or Recreational Drugs Have You Used? NO [id number].[id number] Information not available 06/06/2022 Do You Or Have You Ever Used E-cigarettes Or Vape? Never Used Electronic Cigarettes [id number].[id number] Information not available 06/06/2022 What Is Your Occupation? [employer] [id number].[id number] Information not available 06/06/2022 What Was The Date Of Your Most Recent Tobacco Screening? 10/29/2022 Information not available 10/29/2022 At What Age Did You Start Smoking Tobacco? 18 [id number].[id number] 5139 Information not available 06/06/2022 Do You Or Have You Ever Used Smokeless Tobacco? Never Used Smokeless Tobacco MIGRATION.[id number] 6199 Information not available 06/06/2022 Sex: Unknown Functional Status Question Answer Note LastModified by Organizat ion Details LastModified Time What is your exercise level? Moderate [id number] Information not available 06/06/2022 Mental Status None recorded. Family History Relationship Description Onset Age of this Age Resolved Age Notes LastModified by Organization Details LastModified Time Mother Essential hypertension [id number] Not available 06/06/2022 05:58:47 Father Malignant tumor of lung MIGRATION.098 [id number] Not available 06/06/2022 05:58:47 Father Malignant tumor of prostate MIGRATION.[id number] Not available 06/06/2022 05:58:48 Medical History Condition Response BLINDNESS N RHEUMATIC FEVER N KIDNEY STONES N BLADDER PROBLEMS N MRSA N OTHER # 1 N POLIO N LUNG DISEASE/DISORDER N RADIATION / CHEMOTHERAPY N COPD N Other # 2 N BLOOD DISEASES N SURGERY N EAR OR HEARING PROBLEMS N MUMPS N FEMALE PROBLEMS / INFECTIONS N BOWEL PROBLEMS N DEPRESSION (INCLUDING POST ) N STROKE/TIA N THYROID DISEASE N ULCERS N BENIGN PROSTATIC HYPERPLASIA N MEASLES N CERVICALGIA N TB SKIN TEST N MYOCARDIAL INFARCTION N PARAPELGIA N OBESITY N GERD/NAUSEA N ANEURYSM N URINARY/BLADDER/KIDNEY PROBLEMS N CORONARY ARTERY DISEASE (CAD) N MENIERE'S DISEASE N ADDICTION CONCERNS N ENDOMETRIOSIS N USE OF BLOOD THINNERS N SKIN PROBLEMS N EMPHYSEMA N GASTROINTESTINAL DISORDER N MUSCLE,JOINT OR BONE PROBLEMS N GASTROINTESTINAL BLEEDING N BLOOD CLOTS N ASTHMA N CATARACTS N ERECTILE DYSFUNCTION N GI PROBLEMS N CHF N Low Testosterone N NEUROPATHY N INFERTILITY N AIDS/HIV N FRACTURES N CHEMOTHERAPY / RADIATION N VISION/EYE PROBLEMS N LIVER DISEASE N MALE HYPOGONADISM N HYPERTENSION N TOURETTE'S N ANXIETY DISORDER N BLOOD TRANSFUSION N ANEMIA/BLOOD DISORDER N CHRONIC EAR INFECTIONS N BRONCHITIS N TUBERCULOSIS N GLAUCOMA N FOOT PROBLEM N DIVERTICULITIS N SLEEP APNEA N CHICKENPOX N ALLERGIES/HAYFEVER N INFECTIOUS DISEASE N PROSTATE N HEART ARRHYTHMIA N INSOMNIA N HIGH CHOLESTEROL / HYPERLIPIDEMIA N EYE PROBLEMS N HYPERTHYROIDISM N EATING DISORDER N EDEMA N CHRONIC PAIN SYNDROME N CONSTIPATION N CAROTID BLOCKAGE N BACK / NECK PROBLEMS N HAVE YOU BEEN HOSPITALIZED OR SEEN IN [facility] IN THE PAST YEAR ? N ATHEROSCLEROSIS N BREAST PROBLEMS N DIALYSIS N ECZEMA N FIBROMYALGIA N OSTEOPOROSIS N ARTHRITIS N NO SIGNIFICANT PAST MEDICAL HISTORY N APPENDICITIS N DIABETES, TYPE N BAD TEETH N HEARTBURN / REFLUX N ADD/ADHD N AUTISM SPECTRUM DISORDER (ASD) N HEPATITIS / LIVER DISEASE N PULMONARY DISEASE N GOUT N SLEEP DISORDER N ALZHEIMER'S DISEASE N PAIN N DEMENTIA N HERPES N SEIZURES/EPILEPSY N HEADACHES/MIGRAINES N VASCULAR DISEASE N PACEMAKER N DIZZINESS N HEART DISEASE/HEART PROBLEMS N KIDNEY DISEASE N SCARLET FEVER N MULTIPLE SCLEROSIS N DEVELOPMENTAL OR BEHAVIORAL DISORDERS N MENTAL DISORDER/ILLNESS N CANCER: SPECIFY N CARDIAC ARRHYTHMIA N PNEUMONIA N ATRIAL FIBRILLATION N Gall Stones N PULMONARY EMBOLISM N AUTOIMMUNE DISEASE N Immunizations Vaccine Type Date Status Note Provider Nam e and Address Organization Details Recorded Time COVID-19, mRNA, LNP-S, PF, 30 mcg/0.3 mL dose 06/20/2020 completed Not Available [facility] 3 06:18:47 COVID-19, mRNA, LNP-S, PF, 30 mcg/0.3 mL dose 05/30/2020 completed Not Available [facility] 3 06:18:47 Past Encounters Encounter ID Performer Location Encounter Start Date Encounter Closed Date Diagnosis/Indication Diagnosis SNOMED-CT Code Diagnosis ICD10 Code Diagnosis Note [id number] [facility] [address] [place] [address] 10/06/2020 00:00:00 10/28/2020 10:57:54 [id number] [facility] [place] [address] [place] [address] 10/19/2020 00:00:00 10/19/2020 18:34:22 [id number] [facility] [place] [address] [place] [address] 04/17/2021 00:00:00 04/17/2021 08:37:09 [id number] [facility] [place] [address] [place] [address] 10/16/2021 00:00:00 10/16/2021 09:23:40 [id number] [facility] [place] [address] [facility] [address] [place] [address] 11/15/2021 00:00:00 11/17/2021 10:38:03 [id number] [facility] [place] [address] [place] [address] 12/04/2021 00:00:00 12/05/2021 21:58:48 [id number] [facility] [address] [address] 01/04/2022 00:00:00 01/04/2022 09:35:55 [id number] [facility] [place] [address] [place] [address] 01/16/2022 00:00:00 01/16/2022 09:50:28 [id number] [facility] [address] [address] 02/08/2022 00:00:00 02/08/2022 12:00:20 [id number] [facility] [address] [address] 03/29/2022 00:00:00 03/29/2022 16:43:57 [id number] [facility] [address] [facility] [address] [place] [address] 04/30/2022 00:00:00 04/30/2022 11:41:02 [id number] Torin Villalpando MD [facility] Primary Care [facility] [address] [facility] [address] [place] [address] 10/29/2022 09:03:01 10/29/2022 09:54:59 Adult health examination 512439044 Z00.00 screen fasting labshep c screen negative 07/24remain a nonsmokerc olonoscopy referral given done last 06/17-repea t 2021flu vaccine yearlycovi d booster per cdc guidelines recommend shingrix vaccine series Screening for disorder 054002630 Z13.9 Benign ess ential hypertension 5755302 I10 stablecont inue current meds Benign pro static hyperplasia 583865874 N40.[address] Thurston Hyperglycemia 03513777 R 73.9 Actinic keratosis 935619 [address] Peck Hyperlipidemia 45123390 E78.5 Z79.899 stableator vastatin 10 mg daily [id number] Torin Villalpando MD [facility] Primary Care [facility] [address] [facility] [address] [place] [address] 01/29/2023 08:24:45 01/29/2023 11:18:41 Impacted cerumen 84030832 H61.23 cerumen impaction b/l removed with irrigation and manual removalpt tolerated wellears canals clear b/l after irrigation [id number] Milan Edward DPM [facility] Podiatry [place] [address] [place] [address] 02/04/2023 12:13:53 02/04/2023 13:57:23 Dystrophia unguium 07980773 L60.3 secondary to toe deformity and pressureaf fected nails debrided without incidentre commend wide soft toe box style shoe gearmay utilize a silicone toe cap to protect toes and nailsfollo w-up as needed Subungual hematoma of lesser toe 259806067 S90.221A S90.222A allowed nails regrowfile d areas to prevent pressureed ucated on conditiond enies wanting surgery Bunion 925918075 M21.61 1 M21.612 educated on conditionT reatment options reviewed in detailPati ent defers surgeryRec ommend offloading with silicone gel sleeve and wide soft shoe gear with athletic supportive shoes.Foll ow-up as needed Hammer toe 466134720 M20 .41 M20.42 as above [id number] Torin Villalpando MD [facility] [address] [facility] [address] [place] [address] 05/06/2023 09:20:27 05/06/2023 09:54:26 Essential hypertension 63806538 I10 stablecont inue lisinopril 10 mg daily, metoprolol ER 25 mg daily, amlodipine 5 mg daily Benign pro static hyperplasia 807854254 N40.[address] Thurston, will have procedure in June Health Concerns Section Related Observation LastModified by Organization Detai ls LastModified Time None Recorded Concern Status LastModified by Organization Details LastModified Time None Recorded Advance Directives Directive None Recorded Payers Encounter Date Sequence Insurance Name Policy Number Policy Kim Covered Member ID Kim Member ID Guarantor Name 10/29/2022 1 [place] Leandro Salinas [id number] Leandro Salinas 10/29/2022 2 [employer] [place] [employer] (MEDICARE SUPPLEMENT) Leandro Salinas [id number] Leandro Salinas 01/29/2023 1 [place] Le[place] Salinas [id number] Leandro Salinas 01/29/2023 2 [employer] [place] [employer] (MEDICARE SUPP[place]) Leandro Salinas [id number] Leandro Salinas 02/04/2023 1 [place] Le[place] Sal[place] [id number] Leandro Salinas 02/04/2023 2 [employer] [place] [employer] (MEDICARE [place]PP[place]) Leandro Salinas [id number] Leandro Salinas 05/06/2023 1 [place] Le[place] Salinas [id number] Leandro Salinas 05/06/2023 2 [facility] (MEDICARE SUPPLEMENT) Leandro Bondluke [id number] Leandro Champion Rita Notes Date Note Type Note Provider Name and Address Organization Details Recorded Time 10/29/2022 text/html Here for wellnes s exam Torin Villalpando MD [address], [address], [place], [address], [facility] 10/29/2022 09:47:06 01/29/2023 text/html ears feel clogge d, tinnitus is louder. He has needed ears flushed in the past. Torin Villalpando MD [address], [address], [place], [address], [facility] 01/29/2023 09:27:15 02/04/2023 text/html . Patient is 77-year-old male who returns the office for Complaints of thick discolored toenails. patient denies any significant injury to his toes. Patient states the right great toe became thick discolored and partly came off. Patient denies any treatment for this condition other than filing the area down. Patient denies wounds or infection. Patient denies any other complaints. Milan Edward DPM [address], [place], [address], [facility] 02/04/2023 12:45:13 05/06/2023 text/html Here to f/u on htn. He is checking home blood pressures and they are normal . No chest pain, no sob. He is working with Dr. Thurston and is planning to have a debulking procedure on the prostate due to BPH in June. Torin Villalpando MD [address], [place], [address], [facility] 05/06/2023 09:46:36
--- OUTSIDE RECORDS SUMMARY | 2024-04-30 05:01 | XMS_ITS | Referral Summary ---
Author Organization [facility] Address [address] [place] [address] Care Team Providers Care Art Educator Name Role Phone Emory Hu Primary Care Provider Source Comments [facility],non-owned Affiliates and Associated Physician Practices is amultiple site organization consisting of ambulatory clinics and hospital sitesin [place], [place], [place] and [place]. This disclosure is being madepursuant to the Care Everywhere program and may not contain all information available regarding this patient. Last updated 17.[facility] Allergies Active Allergy Reactions Criticality Noted Date [...] 12/14/2014 8:17 AM CDT Plan of Treatment Not on file Care Teams Art Educator Relationship Specialty Start Date End Date Emory Hu DO PCP - General Internal Medicine 11/08/14
== END 2024-04-24 06:54 | disposition home or self-care (01) ==
PROVIDERS: PCP Family Medicine; Visit Provider Family Medicine
DX: N40.0 Benign prostatic hyperplasia without lower urinary tract symptoms (principal); I10 Essential (primary) hypertension; E78.5 Hyperlipidemia, unspecified; R53.83 Other fatigue; R35.1 Nocturia
CPT/HCPCS: 36415; 80053; 80061; 81001; 84153; 84443; 85027

== ENCOUNTER 2024-06-26 07:44 | Outpatient (CLI) | payer MEDICARE, SELFPAY ==
--- OUTSIDE RECORDS SUMMARY | 2024-06-26 07:49 | XMS_ITS | Clinical Summary ---
Author Organization [facility] Address [address] [place] [address] Care Team Providers Care Risk Management Director Name Role Phone Emory Hu Primary Care Provider Source Comments [facility],non-owned Affiliates and Associated Physician Practices is amultiple site organization consisting of ambulatory clinics and hospital sitesin [place], [place], [place] and [place]. This disclosure is being madepursuant to the Care Everywhere program and may not contain all information available regarding this patient. Last updated 17.[facility] Allergies Active Allergy Reactions Criticality Noted Date [...] Due Date Last Done Comments MEDICARE AWV 12 MONTHS 1945 HEPATITIS C SCREENING 10/10/1963 [...] to complete this topic MENINGOCOCCAL (Group B) VACC INE SHARED DECISION-MAKING Aged Out No longer eligibl e based on patient's age to complete this topic MENINGOCOCCAL GROUPS A/C/Y/W VACCINE Aged Out No longer eligible b ased on patient's age to complete this topic Care Teams Risk Management Director Relationship Specialty Start Date End Date Emory Hu DO PCP - General Internal Medicine 11/08/14
--- OUTSIDE RECORDS SUMMARY | 2024-06-26 07:49 | XMS_ITS | Clinical Summary ---
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 Cancer (HCC) 2010 Hypertension ? 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 Gender Identity Male 01/23/2021 8:46 PM CDT Sexual Orientation Not on file Obstetrics History Last Filed Vital Signs Vital Sign Reading Time Taken Comments Blood Pressure 180/96 03/11/2024 9:04 AM ALTERATION TAILOR Pulse 77 03/11/2024 9:04 AM ALTERATION TAILOR Temperature - - Respiratory Rate 12 10/08/2019 8:28 AM CDT Oxygen Saturation 99% 03/11/2024 9:04 AM ALTERATION TAILOR Inhaled Oxygen Concentration - - Weight 70.8 kg (156 lb) 03/11/2024 9:04 AM ALTERATION TAILOR Height 165.1 cm (5' 5 ) 03/11/2024 9:04 AM ALTERATION TAILOR Body Mass Index 25.96 03/11/2024 9:04 AM ALTERATION TAILOR Plan of Treatment Health Maintenance Due Date Last Done Comments Depression Screening 1945 Fall Risk Assessment 1945 Hepatitis C Screening 1945 DTaP/Tdap/Td Vaccine (1 - Tdap) 1956 Hepatitis B Screening 10/15/1963 Pneumococcal vaccine 65+ (1 of 1 - PCV) 10/15/1995 Zoster Vaccine (1 of 2) 10/15/1995 Abdominal Aortic Aneurysm (A AA) Screen 2010 Well Visit 65+ 2010 Covid-19 Vaccine ( season) 2023 01/02/2021, 06/20/2020, 05/30/2020 Influenza Vaccine (#1) 2023 Insurance MEDICARE COMMERCIAL GENERIC MEDICARE [employer] SENIOR SUPPLEMENT MEDICARE COMMERCIAL GENERIC Care Teams Manager Product Design Relationship Specialty Start Date End Date Shan Rubio MD [address] [place] [id number] PCP - General Family Medicine 03/11/24
--- OUTSIDE RECORDS SUMMARY | 2024-06-26 07:49 | XMS_ITS | CONTINUITY OF CARE DOCUMENT ---
Author Name johnson ornelas Address Unknown Organization [facility] Address [address] [facility] [facility] [address] [place] [address] Phone [phone] Care Team Providers Care Supervisor Newspaper Deliveries Name Role Phone Kilo ACHARYA, Nilay Unavailable TORIN HUTCHINS MD Unavailable [phone] TORIN HUTCHINS MD Unavailable INSURANCE PROVIDERS Payer name Policy type / Coverage type [employer] party ID [employer] SENIOR SUPPLEMENTAL INS Commercial insuran ce company [id number] [place] MEDICARE Medicare [id number]
--- OUTSIDE RECORDS SUMMARY | 2024-06-26 07:49 | XMS_ITS | Continuity of Care Document ---
Author Organization [facility] Address [address] [place] [address] Phone Care Team Providers Care Manager Office Name Role Phone Bell OD, Melchor Unavailable Unavailable Procedures Procedure Date Cntct Lens Hydrophil [facility] Medical Tax Eye Exam & Treatment Refraction Cntct Lens Hydrophil Bifocal [facility] Contact Lens/es Other Type [facility] Cntct Lens Hydrophil Bifocal [facility] Contact Lens Check Contact Lens Check Eye Exam & Treatment Refraction CL Replacement - [facility] Disp W/BW Soft [facility] CL Replacement - [facility] Disp W/BW Soft [facility] CL Replacement - [facility] Disp W/BW Soft [facility] Exam & Treatment Refraction CL Replacement - [facility] Disp W/BW Soft [facility] CL Replacement - [facility] Disp W/BW Soft [facility] CL Replacement - [facility] Disp W/BW Soft [facility] CL Replacement - [facility] Disp W/BW Soft [facility] CL Replacement - [facility] Disp W/BW Soft [facility] Eye Exam & Treatment Refraction CL Replacement - [facility] Disp W/BW Soft [facility] CL Replacement - [facility] Disp W/BW Soft [facility] Advance Directives Directive Yes / No Effective Date File Name No Information Encounters Encounter Description Practice Location Reason(s) For Visit Diagnoses Date Provider Providers Copied on Encounter [facility], [address] [place] [address] [address], [place], [place], [id number], tel:[phone] [facility] No Information 4-201 0 Bell OD Melchor. [address], [place], [place], [facility], [place]. tel:[phone] [facility], [address] [place] [address] [address], [place], [place], [id number], [place] tel:[phone] [facility] [place] No Information 7-201 0 Bell OD Melchor. [address], [place], [place], [facility], [place]. tel:[phone] [facility], [address] [place] [address] [address], [place], [place], [id number], [place] tel:[phone] [facility] [place] No Information 5-201 0 Bell OD Melchor. [address], [place], [address], [place]. tel:[phone] [facility], [address] [place] [address] [address], [place], [place], [id number], [place] tel:[phone] [facility] [place] No Information 6-201 0 Bell OD Melchor. [address], [place], [place], [facility], [place]. tel:[phone] [facility], [address], [place], [place], [id number], [place] tel:[phone] SEC [facility] [address] No Information Dec-0 9-200 9 Bell OD Melchor. [address], [place], [place], [facility], . tel:[phone] [facility], [address] [place] [address] [address], [place], [place], [address], [place] tel:[phone] [facility] No Information Nov-1 8-200 9 Bell OD Melchor. [address], [place], [place], [facility], . tel:[phone] [facility], [address] [place] [address] [address], [place], [place], [address], [place] tel:[phone] [facility] No Information Nov-1 1-200 9 Bell OD Melchor. [address], [place], [place], [facility], [place]. tel:[phone] [facility], [address] [place] [address] [address], [place], [place], [id number], [place] tel:[phone] [facility] No Information Edwardo-0 1-200 9 Bell OD Melchor. [address], [place], [place], [facility], [place]. tel:[phone] [facility], [address] [place] [address] [address], [place], [place], [id number], [place] tel:[phone] [facility] No Information May-2 3-200 9 Bell OD Melchor. [address], [place], [place], [facility], . tel:[phone] [facility], [address] [place] [address] [address], [place], [place], [id number], [place] tel:[phone] [facility] No Information Nov-0 3-200 8 Bell OD Melchor. [facility] [address], [place], [facility], [place]. tel:[phone] [facility], [address] [place] [address] [address], [place], [place], [id number], [place] tel:[phone] [facility] No Information Edwardo-0 2-200 8 Bell OD Melchor. [address] [facility] [address] [facility] [address], [place], [facility], [place]. tel:[phone] [facility], [address] [place] [address] [address], [place], [place], [address], [place] tel:[phone] [facility] [place] No Information Matthias-3 0-200 8 Bell OD Melchor. [address] [facility] [address] [facility] [address], [place], [facility], [place]. tel:[phone] [facility], [address] [place] [address] [address], [place], [place], [id number], [place] tel:[phone] [facility] No Information May-1 9-200 8 Bell OD Melchor. [facility] , [address], [place], [facility], [place]. tel:[phone] [facility], [address] [place] [address] [address], [place], [place], [id number], [place] tel:[phone] [facility] No Information Mar-3 1-200 8 Bell OD Melchor. [address] [facility] , [address], [place], [facility], [place]. tel:[phone] [facility], [address] [place] [address] [address], [place], [place], [id number], [place] tel:[phone] SEC [facility] [place] No Information Dec-2 8-200 7 Bell OD Melchor. [address] [place], [place] [address] , [address], [place], [place], [facility], . tel:[phone] [facility], [address] [place] [address] [address], [place], [place], [id number], tel:[phone] SEC [facility] [place] No Information Aug-0 8-200 7 Bell OD Melchor. [address] [place], [place] [address] , [address], [place], [place], [facility], [place]. tel:[phone] [facility], [address] [place] [address] [address], [place], [place], [id number], tel:[phone] SEC [facility] [place] No Information Matthias-2 7-200 7 Bell OD Melchor. [address] [place] [address] [address], [address], [place], [facility], [place]. tel:[phone] [facility], [address] [place] [address] [address], [place], [place], [id number], tel:[phone] SEC [facility] [place] No Information Apr-2 0-200 7 Bell OD Melchor. [address] [place] [address] [address], [address], [place], [facility], [place]. tel:[phone] [facility], [address] [place] [address] [address], [place], [place], [address], tel:[phone] SEC [facility] [place] No Information Dec-2 6-200 6 Bell OD Melchor. [address] [place], [place] [address]ate [address] , [address], [place], [address], [place]. tel:[phone] Family History Family Member Type Diagnosis Age [...]
--- OUTSIDE RECORDS SUMMARY | 2024-06-26 07:50 | XMS_ITS | Referral Summary ---
Author Organization [facility] Address [address] [place] [address] Phone Care Team Providers Care Supervisor Baking Name Role Phone Shan Rubio MD Primary [...] Hypertension 03/11/2024 Coronary artery disease invo lving [place] coronary artery of [place] heart without angina pectoris 07/22/2018 Incomplete left [...] on file Legal Sex Male 4:26 AM MARKETING SEGMENT MANAGER Gender Identity Male 01/23/2021 8:46 PM CDT Sexual Orientation Not on file Last Filed Vital Signs Vital Sign Reading Time Taken Comments Blood Pressure 180/96 03/11/2024 9:04 AM MARKETING SEGMENT MANAGER Pulse 77 03/11/2024 9:04 AM MARKETING SEGMENT MANAGER Temperature - - Respiratory Rate 12 10/08/2019 8:28 AM CDT Oxygen Saturation 99% 03/11/2024 9:04 AM MARKETING SEGMENT MANAGER Inhaled Oxygen Concentration - - Weight 70.8 kg (156 lb) 03/11/2024 9:04 AM MARKETING SEGMENT MANAGER Height 165.1 cm (5' 5 ) 03/11/2024 9:04 AM MARKETING SEGMENT MANAGER Body Mass Index 25.96 03/11/2024 9:04 AM MARKETING SEGMENT MANAGER Plan of Treatment Not on file Insurance MEDICARE COMMERCIAL GENERIC MEDICARE AET[employer] SENIOR SUPPLEMENT MEDICARE COMMERCIAL GENERIC Care Teams Supervisor Baking Relationship Specialty Start Date End Date Shan Rubio MD [address] [facility] [address] [place], [place] [id number] PCP - General Family Medicine 03/11/24
--- OUTSIDE RECORDS SUMMARY | 2024-06-26 07:50 | XMS_ITS | Data Portability ---
Author Organization [facility] [employer], Main Office Address [address] [place] [address] Care Team Providers Care Lard Maker Name Role Phone TORIN VILLALPANDO Primary Care Provider [phone] TORIN VILLALPANDO Referring Provider [phone] Assessment Encounter Date Assessment Date Assessment LastModified by Organization Details LastModified Time 02/04/2023 02/04/2023 This note is dictated and transcribed by [employer]. Sales Correspondent variances may occur. Despite proofreading, typographical errors may occur. [email or web address] Not available 02/04/2023 12:43:17 Plan of Treatment Reminders Order Date Submit Date Provider Last Modified By Organization Details Last Modified Time Details Appointments None recorded. Lab lipid panel, serum [address] (Lab), [address] [place], [address], 10:31:33 hepatic function panel, serum [address] (Lab), [address] [place], [address], 10:31:59 glycohemog lobin, total, blood [address] (Lab), [address] [place], [address], 10:30:42 CBC w/ auto diff [address] (Lab), [address] [place], [address], 10:30:19 BMP, serum or plasma [address] (Lab), [address] [place], [address], 10:30:56 PSA, serum or plasma [address] (Lab), [address] [place], [address], 10:23:59 Referral None recorded. Procedures None recorded. Surgeries None recorded. Imaging None recorded. Medication Orders None recorded. Patient TargetsNo targets recorded. Patient Instructions Encounter Date Encounter Id Patient Instructions Last Modified By Organization Details Last Modified Time 10/29/2022 [id number] dementia rating scale-2* JUSTYN Not available 10/29/2022 10:29:42 alcohol misuse* JUSTYN Not available 10/29/2022 10:30:11 depression screening* JUSTYN Not available 10/29/2022 10:30:33 multi-dimensiona l health assessment questionnaire* JUSTYN Not available 10/29/2022 10:29:56 advance care planning: care instructions Not available 10/29/2022 09:43:19 advance directiv es: care instructions Not available 10/29/2022 09:43:19 [place] Advance Directives Not available 10/29/2022 09:43:19 risk assessment* JUSTYN Not available 10/29/2022 10:32:34 Personalized a lt Plan and Screening Recommendations Advance Directives - Do you have one? Yes Advance Directives - Do we have your advance directive on file in your health record? No, please bring in a copy at your earliest convenience Primary Prevention/Interven tion (prevents or decreases the chance of common diseases from occurring) Smoking Risk: Non Smoker Alcohol Misuse Screening: Negative Weight: Appropriate Physical activity: Appropriate physical activity Nutrition: Good Fall Risk (screened today): Low Intermediate Refer to attached handout Preventing Falls: After your Visit Vaccines Pneumococcal: Ordered Recommended today Recommended today, but you have declined Influenza: Your next one in the fall of this year Chronic Disease Risks Stroke: Low Risk Intermediate Risk Heart Attack: Low risk Intermediate Risk Clogging of the Arteries: Low risk Intermediate Risk Diabetes: Low Risk I have no recommendations Secondary Prevention/Interven tion (detects treatable diseases before they may cause symptoms, disability, or ) Prostate Cancer Screening: No digital rectal exam screening necessary Colon Cancer Screening: Colonoscopy No screening necessary Date Screening Last Performed: 01/10/22 Eye Disease Screening: Dementia Risk: Low I have no recommendations Depression Screening: Negative Not available 10/29/2022 09:42:41 Reason for Referral None Reported. Results Created Date Observation Date Name Description Value Unit Range Abnormal Flag Note LastModifiedBy Organization Detail LastModifiedTime 10/30/1910/29/2022 CBC/C OMPLE TE BLD COUNT W/DIF F white blood cells 4.7 x10'3 /uL 4.2-[address] [facility] (Lab) [address] [place], [address], 10/29/2022 19:39:23 10/30/1910/29/2022 CBC/C OMPLE TE BLD COUNT W/DIF F red blood cells 4.32 x10'6 /uL 4.10-[address] [facility] (Lab) [address] [place], [address], 10/29/2022 19:39:23 10/30/1910/29/2022 CBC/C OMPLE TE BLD COUNT W/DIF F hemoglobin 13.2 g/dL 13.2-[address] [facility] (Lab) [address] [place], [address], 10/29/2022 19:39:23 10/30/1910/29/2022 CBC/C OMPLE TE BLD COUNT W/DIF F hematocrit 41.3 % 39.3-[address] [facility] (Lab) [address] [place], [address], 10/29/2022 19:39:23 10/30/1910/29/2022 CBC/C OMPLE TE BLD COUNT W/DIF F mean red cell volume 95.6 fL 80.0-[address] [facility] (Lab) [address] [place], [address], 10/29/2022 19:39:23 10/30/1910/29/2022 CBC/C OMPLE TE BLD COUNT W/DIF F mean red cell hemoglobin 30.6 pg 27.0-[address] [facility] (Lab) [address] [place], [address], 10/29/2022 19:39:23 10/30/1910/29/2022 CBC/C OMPLE TE BLD COUNT W/DIF F mean RBC HGB concentratio n 32.0 g/dL 31.0-[address] [facility] (Lab) [address] [place], [address], 10/29/2022 19:39:23 10/30/1910/29/2022 CBC/C OMPLE TE BLD COUNT W/DIF F red cell distribution width 14.4 % 11.8-[address] [facility] (Lab) [address] [place], [address], 10/29/2022 19:39:23 10/30/1910/29/2022 CBC/C OMPLE TE BLD COUNT W/DIF F platelets 195 x10'3 /uL 150-[address] [facility] (Lab) [address] [place], [address], 10/29/2022 19:39:23 10/30/1910/29/2022 CBC/C OMPLE TE BLD COUNT W/DIF F mean platelet volume 12.1 fL 9.0-[address] [facility] (Lab) [address] [place], [address], 10/29/2022 19:39:23 10/30/1910/29/2022 CBC/C OMPLE TE BLD COUNT W/DIF F neutrophils 62.6 % 39.0-[address] [facility] (Lab) [address] [place], [address], 10/29/2022 19:39:23 10/30/1910/29/2022 CBC/C OMPLE TE BLD COUNT W/DIF F lymphocytes 23.1 % 16.0-[address] [facility] (Lab) [address] [place], [address], 10/29/2022 19:39:23 10/30/1910/29/2022 CBC/C OMPLE TE BLD COUNT W/DIF F monocytes 10.3 % 5.0-[address] [facility] (Lab) [address] [place], [address], 10/29/2022 19:39:23 10/30/1910/29/2022 CBC/C OMPLE TE BLD COUNT W/DIF F eosinophils 3.4 % 1.0-7. [address] [facility] (Lab) [address] [place], [address], 10/29/2022 19:39:23 10/30/1910/29/2022 CBC/C OMPLE TE BLD COUNT W/DIF F basophils 0.4 % 0.0-2. [address] [facility] (Lab) [address] [place], [address], 10/29/2022 19:39:23 10/30/1910/29/2022 CBC/C OMPLE TE BLD COUNT W/DIF F immature granulocytes 0.2 % 0.00-[address] [facility] (Lab) [address] [facility] [place], [address], 10/29/2022 19:39:23 10/30/1910/29/2022 CBC/C OMPLE TE BLD COUNT W/DIF F neutrophils, absolute count 2.93 x10'3 /uL 1.5-8. [address] [facility] (Lab) [address] [place], [address], 10/29/2022 19:39:23 10/30/1910/29/2022 CBC/C OMPLE TE BLD COUNT W/DIF F lymphocytes, absolute count 1.08 x10'3 /uL 1.07-[address] [facility] (Lab) [address] [place], [address], 10/29/2022 19:39:23 10/30/1910/29/2022 CBC/C OMPLE TE BLD COUNT W/DIF F monocytes, absolute count 0.48 x10'3 /uL 0.29-[address] [facility] (Lab) [address] [place], [address], 10/29/2022 19:39:23 10/30/1910/29/2022 CBC/C OMPLE TE BLD COUNT W/DIF F eosinophils, absolute count 0.16 x10'3 /uL 0.02-[address] [facility] (Lab) [address] [place], [address], 10/29/2022 19:39:23 10/30/1910/29/2022 CBC/C OMPLE TE BLD COUNT W/DIF F basophils, absolute count 0.02 x10'3 /uL 0.01-[address] [facility] (Lab) [address] [place], [address], 10/29/2022 19:39:23 10/30/1910/29/2022 CBC/C OMPLE TE BLD COUNT W/DIF F immature granulocytes ,absolute 0.01 x10'3 /uL 0.00-[address] [facility] (Lab) [address] [place], [address], 10/29/2022 19:39:23 10/30/19 23 10/29/2022 CBC/C OMPLE TE BLD COUNT W/DIF F nucleated red blood cells 0.0 % -0 Not Available [facility] (Lab) [address] [place], [address], 10/29/2022 19:39:23 10/30/1910/29/2022 CBC/C OMPLE TE BLD COUNT W/DIF F NRBC# 0.00 x10'3 /uL Not Available [facility] (Lab) [address] [place], [address], 10/29/2022 19:39:23 10/30/1910/29/2022 BASIC METAB OLIC PANEL sodium 138 mmol/ L 137-[address] [facility] (Lab) [address] [place], [address], 10/29/2022 20:01:38 10/30/1910/29/2022 BASIC METAB OLIC PANEL potassium 4.2 mmol/ L 3.5-[address]. [address] [facility] (Lab) [address] [place], [address], 10/29/2022 20:01:38 10/30/19 23 10/29/2022 BASIC METAB OLIC PANEL chloride 103 mmol/ L 98-[address] [facility] (Lab) [address] [place], [address], 10/29/2022 20:01:38 10/30/19 23 10/29/2022 BASIC METAB OLIC PANEL carbon dioxide 28 mmol/ L 22-[address] [facility] (Lab) [address] [place], [address], 10/29/2022 20:01:38 10/30/19 23 10/29/2022 BASIC METAB OLIC PANEL anion gap 11.2 mmol/ L 14-[address] [facility] (Lab) [address] [place], [address], 10/29/2022 20:01:38 10/30/19 23 10/29/2022 BASIC METAB OLIC PANEL glucose 97 mg/dL 70-[address] [facility] (Lab) [address] [place], [address], 10/29/2022 20:01:38 10/30/19 23 10/29/2022 BASIC METAB OLIC PANEL BUN 22 mg/dL 8-[address] [facility] (Lab) [address] [place], [address], 10/29/2022 20:01:38 10/30/19 23 10/29/2022 BASIC METAB OLIC PANEL creatinine 0.80 mg/dL 0.66-[address] [facility] (Lab) [address] [place], [address], 10/29/2022 20:01:38 10/30/19 23 10/29/2022 BASIC METAB OLIC PANEL GFR >60 Refer ence Range : Mars ge GFR Healt hy Adult : >60 [...] and ages must be made by the clini navid. The MDRD study equat ion has not been valid ated for the evalu ation of serum creat inine relat ed to nutri umberto l statu s or medic ation usage . For perso ns <18 years of age, a pedia tric GFR calcu lator is avail able on the [facility] websi te: https ://ww w.kid ramírez.o rg/pr ofess ional s/kdo qi/gf r_cal culat or Not Available [facility] (Lab) [address] [place], [address], 10/29/2022 20:01:38 10/30/19 23 10/29/2022 BASIC METAB OLIC PANEL calcium 9.4 mg/dL 8.4-[address] [facility] (Lab) [address] [place], [address], 10/29/2022 20:01:38 10/30/19 23 10/29/2022 LIPID PANEL cholesterol 149 mg/dL 140-19 9 NIH JACK NSUS RECOM MENDA TION FOR VIV STERO L: ADULT CHILD LOW RISK: <200 <170 BORDE RLINE : <200- 239 ----- HIGH RISK: >240 >[address] [facility] (Lab) [address] [place], [address], 10/29/2022 20:01:45 10/30/1910/29/2022 LIPID PANEL triglyceride s 59 mg/dL 0-150 NIH JACK NSUS REPOR T RECOM MENDA TION FOR TRIGL YCERI JOCELYN: ADULT CHILD LOW RISK: <150 ----- BODER LINE: 150-1 99 ----- HIGH RISK: >200 ----- Not Available [facility] (Lab) [address] [place], [address], 10/29/2022 20:01:45 10/30/19 23 10/29/2022 LIPID PANEL HDL cholesterol 87 mg/dL 40- Not Available [facility] (Lab) [address] [place], [address], 10/29/2022 20:01:45 10/30/19 23 10/29/2022 LIPID PANEL [...] WILL NOT BE REPOR NATHANIEL. Not Available [facility] (Lab) [address] [place], [address], 10/29/2022 20:01:45 10/30/19 23 10/29/2022 HEPAT IC/LI CRUZ PANEL alkaline phosphatase 70 U/L 38-126 Not Available [facility] (Lab) [address] [place], [address], 10/29/2022 20:01:47 10/30/19 23 10/29/2022 HEPAT IC/LI CRUZ PANEL alanine aminotransfe rase 38 U/L 0-50 Not Available [facility] (Lab) [address] [place], [address], 10/29/2022 20:01:47 10/30/19 23 10/29/2022 HEPAT IC/LI CRUZ PANEL aspartate aminotransfe rase 45 U/L 15-46 Not Available [facility] (Lab) [address] [place], [address], 10/29/2022 20:01:47 10/30/19 23 10/29/2022 HEPAT IC/LI CRUZ PANEL bilirubin, total 0.50 mg/dL 0.20-[address] [facility] (Lab) [address] [place], [address], 10/29/2022 20:01:47 10/30/19 23 10/29/2022 HEPAT IC/LI CRUZ PANEL bilirubin, conjugated (direct) 0.00 mg/dL 0.00-[address] [facility] (Lab) [address] [place], [address], 10/29/2022 20:01:47 10/30/19 23 10/29/2022 HEPAT IC/LI CRUZ PANEL biliurubin,u ncong. (indirect) 0.40 mg/dL 0.00-[address] [facility] (Lab) [address] [place], [address], 10/29/2022 20:01:47 10/30/19 23 10/29/2022 HEPAT IC/LI CRUZ PANEL total protein 6.5 g/dL 6.3-8. [address] [facility] (Lab) [address] [place], [address], 10/29/2022 20:01:47 10/30/19 23 10/29/2022 HEPAT IC/LI CRUZ PANEL albumin 3.9 g/dL 3.0-4. [address] [facility] (Lab) [address] [place], [address], 10/29/2022 20:01:47 10/30/19 23 10/29/2022 HEPAT IC/LI CRUZ PANEL globulin 2.6 g/dL 2.6-4. [address] [facility] (Lab) [address] [place], [address], 10/29/2022 20:01:47 10/30/19 23 10/29/2022 HEPAT IC/LI CRUZ PANEL A/G ratio 1.5 ratio 1.0-2. [address] [facility] (Lab) [address] [place], [address], 10/29/2022 20:01:47 10/30/19 23 10/29/2022 PSA, TOTAL PSA, total 1.15 NG/mL 0.00-[address] [facility] (Lab) [address] [place], [address], 10/29/2022 20:38:47 10/30/19 23 10/29/2022 HEMOG LOBIN A1C HA1C 5.4 % 4.0-6. 0 Diabe marlena Scree alem Crite julius: <5.7% Consi stent with absen ce of diabe marlena 5.7-6 .4% Consi stent with incre ased risk for diabe marlena (pred iabet es) >OR=6 .5% Consi stent with diabe marlena REFER ENCE: Diabe marlena Care 2016, 39(Watson ppl.1 ):s13 -s22 [address] [facility] (Lab) [address] [place], [address], 10/29/2022 21:33:13 Result Notes None recorded. Problems Name Problem SNOMED Code Status Onset Date Resolution Date Notes Provider Name and Address Organization Details Recorded Time Decreased hearing 150701534 Active Not Available [facility] 3 06:07:51 Bilateral wrist pain 3506196916467 9105 Active 2021 Not Available [facility] 3 06:07:51 Benign essential hypertensi on 8673814 Active Not Available [facility] 3 06:07:51 Plantar fasciitis of left foot 8239181168267 9101 Active 2017 Not Available [facility] 3 06:07:51 Impacted cerumen 70525759 Active Not Available [facility] 3 06:07:52 Cataract 513030001 Active Not Available [facility] 3 06:07:52 Peripheral venous insufficie ncy 73827341 Active Not Available [facility] 3 06:07:52 Benign prostatic hyperplasi a with outflow obstructio n 850644177 Active Not Available [facility] 3 06:07:52 Labyrinthi tis 27595063 Active Not Available [facility] 3 06:07:52 Tremor 27865754 Active Not Available [facility] 3 06:07:52 Benign prostatic hyperplasi a 588449549 Active Not Available [facility] 3 06:07:52 Orthostati c hypotensio n 87666609 Active Not Available [facility] 3 06:07:52 Carpal tunnel syndrome of left wrist 0470666796566 02 Active 2021 Not Available [facility] 3 06:07:52 Carpal tunnel syndrome of right wrist 4270884238356 08 Active 2021 Not Available [facility] 3 06:07:53 Rib pain 947820017 Active Not Available [facility] 3 06:07:53 Hand muscle weakness 381248011 Active Not Available [facility] 3 06:07:53 Dehydratio n 35460578 Active Not Available [facility] 3 06:07:53 Arthritis 5560556 Active 2017 Not Available [facility] 3 06:07:53 Hypertensi ve disorder 42187287 Active Not Available [facility] 3 06:07:53 Neuropathy 348383247 Active Not Available [facility] 3 06:07:53 Inguinal hernia 204583718 Active Not Available [facility] 3 06:07:54 Vertigo 766803750 Active Not Available [facility] 3 06:07:54 Dizziness 428543994 Active Not Available [facility] 3 06:07:54 Vomiting 676477385 Active Not Available [facility] 3 06:07:54 Nausea 265518347 Active Not Available [facility] 3 06:07:54 Muscle strain 26492461 Active Not Available [facility] 3 06:07:54 Disorder of bursa of shoulder region 01429047 Active Not Available [facility] 3 06:07:54 Varicose veins of lower extremity 11660622 Active Not Available [facility] 3 06:07:55 Hyperglyce fredy 73863234 Active Not Available [facility] 3 06:07:55 Spinal stenosis in cervical region 49657823 Active Not Available [facility] 3 06:07:55 Primary malignant neoplasm of skin of face 76947406 Active Not Available [facility] 3 06:07:55 Actinic keratosis 879833460 Active 2022 Torin Villalpando MD [address], [address], [place], [address] , [facility] 3 09:39:27 Hyperlipid emia 63681302 Active 2022 Torin Villalpando MD [address], [address], [place], [address] , [facility] 3 09:39:42 Impacted cerumen 68073757 Active 2022 Torin Villalpando MD [address], [address], [place], [address] , [facility] 3 08:56:55 Vaginitis 12644793 Active 2022 Torin Villalpando MD [address], [address], [place], [address] , [facility] 3 09:10:30 Dystrophia unguium 15412808 Active 2022 Milan Edward DPM [address], [address], [place], [address] , [facility] 3 12:41:59 Subungual hematoma of lesser toe 780479423 Active 2022 Milan Edward DPM [address], [address], [place], [address] , [facility] 3 12:42:40 Bunion 577281660 Active 2022 Milan Edward DPM [address], [address], [place], [address] , [employer] 3 12:43:20 Hammer toe 484448438 Active 2022 Milan Edward DPM [address] [facility], [place] [address], [place], [address] , [employer] 3 12:43:31 Bunion 271138372 Active 2022 Milan Edward DPM [address] [facility], [place] [address], [place], [address] , [facility] 3 12:43:40 Essential hypertensi on 70968829 Active 2023 Torin Villalpando MD [address] [facility], [place] [address], [place], [address] , [facility] 4 09:37:49 Notes:allergies, cancer, pro state, numbness or tingling, cataracts/glaucoma, ringing in ears Problem Notes None recorded. Procedures Surgical History Date Name Laterality Status Provider Name and Address Organization Details Recorded Time 02/05/20 23 Nail Debridement completed Milan Edward DPM [address] [facility], [place] [address], [place], [address], [facility] 02/04/2023 12:41:53 10/30/19 23 Medicare Wellness CPT Code, subsequent completed Shayy Stanley RN [place] [employer] [facility] [email or web address] 10/25/2022 15:12:46 06/10/19 19 Cardiac Cath completed Not Available [facility] 023 05:58:45 07/02/19 12 colonoscopy completed Not Available [facility] 06/07/19 23 05:58:45 Imaging Results None recorded. Procedure Notes None recorded. Medical Equipment None Reported. Allergies Allergen ID Allergen Name Allergen Category Reaction Reaction Severity Criticality Documentation Date Start Date Code Code System Note Provider Name and Address Organization Details Recorded Time 45416 Product containin g penicilli n (product) medicatio n rash Not available Not available 06/06/2022 87456 8001 SNOMED Not Available [facility] 3 06:19:31 Medications Name Sig Start Date [...] % 99 % 80 /min 97.6 [degF] 47659.5 6 g 128 mm[Hg] 76 mm[Hg] Not Available [facility] 3 06:00:21 Date Recorded Body height Body mass index (BMI) Body weight Body temperature Heart rate Oxygen saturation Oxygen saturation in Arterial blood by Pulse oximetry Provider Name and Address Organization Details Last Updated DateTime 3 165.1 cm 26.3 kg/m2 59106.5 9 g 97.7 [degF] 76 /min 98 % 98 % Savana Cleveland RN [place] [employer] [facility] 3 09:15:11 Date Recorded Systolic blood pressure Diastolic blood pressure Provider Name and Address Organization Details Last Updated DateTime 10/29/2022 140 mm[Hg] 70 mm[Hg] Torin Villalpando MD [address], [facility] [address], [place], [address], [facility] 10/29/2022 09:28:51 Date Recorded Body height Body mass index (BMI) Body weight Body temperature Heart rate Oxygen saturation Oxygen saturation in Arterial blood by Pulse oximetry Systolic blood pressure Diastolic blood pressure Provider Name and Address Organization Details Last Updated DateTime 3 165.1 cm 25.5 kg/m2 03960.6 3 g 98.7 [degF] 84 /min 97 % 97 % 156 mm[Hg] 88 mm[Hg] Jenni Elena CNA [place] [employer] [facility] [email or web address] 3 08:39:30 Date Recorded Body height Body mass index (BMI) Body weight Heart rate Respiratory rate Oxygen saturation Oxygen saturation in Arterial blood by Pulse oximetry Systolic blood pressure Diastolic blood pressure Provider Name and Address Organization Details Last Updated DateTime 3 165.1 cm 25.5 kg/m2 42939.6 3 g 80 /min 14 /min 98 % 98 % 149 mm[Hg] 82 mm[Hg] Sherine Dickerson [facility] 3 12:23:40 Date Recorded Body height Body mass index (BMI) Body weight Body temperature Heart rate Provider Name and Address Organization Details Last Updated DateTime 05/06/2023 165.1 cm 25.6 kg/m2 28294.22 g 97.3 [degF] 85 /min Savana Cleveland RN [facility] 4 09:26:07 Date Recorded Oxygen saturation Oxygen saturation in Arterial blood by Pulse oximetry Systolic blood pressure Diastolic blood pressure Provider Name and Address Organization Details Last Updated DateTime 05/06/2023 97 % 97 % 138 mm[Hg] 88 mm[Hg] Torin Villalpando MD [address], [facility] [address], [place], [address], [facility] 4 09:43:28 Social History Question Answer Notes LastModified by Organizat ion Details LastModified Time Tobacco Smoking Status Former Smoker quit 1987 Not Available [facility] 06/06/2022 05:55:56 What Is Your Level Of Alcohol Consumption? Occasional [id number] Information not available 06/06/2022 What Is Your Level Of Caffeine Consumption? Occasional [id number] Information not available 06/06/2022 How Much Tobacco Do You Chew? None [id number] Information not available 06/06/2022 What Type Of Diet Are You Following? REGULAR [id number] Information not available 06/06/2022 Which Illicit Or Recreational Drugs Have You Used? NO [id number] 2091 Information not available 06/06/2022 Do You Or Have You Ever Used E-cigarettes Or Vape? Never Used Electronic Cigarettes [id number] Information not available 06/06/2022 What Is Your Occupation? [employer] [id number] Information not available 06/06/2022 What Was The Date Of Your Most Recent Tobacco Screening? 10/29/2022 Information not available 10/29/2022 At What Age Did You Start Smoking Tobacco? 18 [id number] Information not available 06/06/2022 Do You Or Have You Ever Used Smokeless Tobacco? Never Used Smokeless Tobacco [id number] Information not available 06/06/2022 Sex: Unknown Functional Status Question Answer Note LastModified by Organizat ion Details LastModified Time What is your exercise level? Moderate [id number] Information not available 06/06/2022 Mental Status None recorded. Family History Relationship Description Onset Age of this Age Resolved Age Notes LastModified by Organization Details LastModified Time Mother Essential hypertension [id number] Not available 06/06/2022 05:58:47 Father Malignant tumor of lung [id number] Not available 06/06/2022 05:58:47 Father Malignant tumor of prostate [id number] Not available 06/06/2022 05:58:48 Medical History Condition Response BLINDNESS N RHEUMATIC FEVER N KIDNEY STONES N BLADDER PROBLEMS N MRSA N OTHER # 1 N POLIO N LUNG DISEASE/DISORDER N RADIATION / CHEMOTHERAPY N COPD N Other # 2 N BLOOD DISEASES N SURGERY N EAR OR HEARING PROBLEMS N MUMPS N BOWEL PROBLEMS N FEMALE PROBLEMS / INFECTIONS N DEPRESSION (INCLUDING POST ) N STROKE/TIA [...] GLAUCOMA N FOOT PROBLEM N DIVERTICULITIS N CHICKENPOX N SLEEP APNEA N ALLERGIES/HAYFEVER N INFECTIOUS DISEASE N HEART ARRHYTHMIA N PROSTATE N INSOMNIA N HIGH CHOLESTEROL / HYPERLIPIDEMIA N HYPERTHYROIDISM N EYE PROBLEMS N EATING DISORDER N EDEMA N CHRONIC PAIN SYNDROME N CAROTID BLOCKAGE N CONSTIPATION N BACK / NECK PROBLEMS N HAVE YOU BEEN HOSPITALIZED OR SEEN IN [place] [facility] IN THE PAST YEAR ? N ATHEROSCLEROSIS [...] DISORDER N ALZHEIMER'S DISEASE N PAIN N HERPES N DEMENTIA N HEADACHES/MIGRAINES N SEIZURES/EPILEPSY N VASCULAR DISEASE N PACEMAKER N DIZZINESS N HEART DISEASE/HEART PROBLEMS N KIDNEY DISEASE N DEVELOPMENTAL OR BEHAVIORAL DISORDERS N MULTIPLE SCLEROSIS N SCARLET FEVER N MENTAL DISORDER/ILLNESS N CARDIAC ARRHYTHMIA N CANCER: SPECIFY N PNEUMONIA N ATRIAL FIBRILLATION N Gall Stones N PULMONARY EMBOLISM N AUTOIMMUNE DISEASE N Immunizations Vaccine Type Date Status Note Provider Nam e and Address Organization Details Recorded Time COVID-19, mRNA, LNP-S, PF, 30 mcg/0.3 mL dose 06/20/2020 completed Not Available [facility] 3 06:18:47 COVID-19, mRNA, LNP-S, PF, 30 mcg/0.3 mL dose 05/30/2020 completed Not Available [facility] 3 06:18:47 Past Encounters Encounter ID Performer Location Encounter Start Date Encounter Closed Date Diagnosis/Indication Diagnosis SNOMED-CT Code Diagnosis ICD10 Code Diagnosis Note [id number] [facility] [place] [address] [place] [address] 10/06/2020 00:00:00 10/28/2020 10:57:54 [id number] [facility] [place] [address] [place] [address] 10/19/2020 00:00:00 10/19/2020 18:34:22 [id number] [facility] [place] [address] [place] [address] 04/17/2021 00:00:00 04/17/2021 08:37:09 [id number] [facility] [place] [address] [place] [address] 10/16/2021 00:00:00 10/16/2021 09:23:40 [id number] [facility] [address] [place] [address] 11/15/2021 00:00:00 11/17/2021 10:38:03 [id number] [facility] [place] [address] [place] [address] 12/04/2021 00:00:00 12/05/2021 21:58:48 [id number] [facility] [address] [address] 01/04/2022 00:00:00 01/04/2022 09:35:55 [id number] [facility] [place] [address] [place] [address] 01/16/2022 00:00:00 01/16/2022 09:50:28 [id number] [facility] [address] [address] 02/08/2022 00:00:00 02/08/2022 12:00:20 [id number] [facility] [address] [address] 03/29/2022 00:00:00 03/29/2022 16:43:57 [id number] [facility] [address] [place] [address] 04/30/2022 00:00:00 04/30/2022 11:41:02 [id number] Torin Villalpando MD [facility] Primary Care [facility] [address] [facility] [address] [place] [address] 10/29/2022 09:03:01 10/29/2022 09:54:59 Adult health examination 112127989 Z00.00 screen fasting labshep c screen negative 07/24remain a nonsmokerc olonoscopy referral given done last 06/17-repea t 2021flu vaccine yearlycovi d booster per cdc guidelines recommend shingrix vaccine series Screening for disorder 550852754 Z13.9 Benign ess ential hypertension 8813021 I10 stablecont inue current meds Benign pro static hyperplasia 121521343 N40.[address] Thurston Hyperglycemia 55323303 R 73.9 Actinic keratosis 710787 [address] L[address] Peck Hyperlipidemia 94212024 E78.5 Z79.899 stableator vastatin 10 mg daily [id number] Torin Villalpando MD [facility] [address] [place] [address] 01/29/2023 08:24:45 01/29/2023 11:18:41 Impacted cerumen 30735894 H61.23 cerumen impaction b/l removed with irrigation and manual removalpt tolerated wellears canals clear b/l after irrigation [id number] Milan Edward DPM [facility] Podiatry [place] [address] [place] [address] 02/04/2023 12:13:53 02/04/2023 13:57:23 Dystrophia unguium 02171612 L60.3 secondary to toe deformity and pressureaf fected nails debrided without incidentre commend wide soft toe box style shoe gearmay utilize a silicone toe cap to protect toes and nailsfollo w-up as needed Subungual hematoma of lesser toe 016741674 S90.221A S90.222A allowed nails regrowfile d areas to prevent pressureed ucated on conditiond enies wanting surgery Bunion 025818357 M21.61 1 M21.612 educated on conditionT reatment options reviewed in detailPati ent defers surgeryRec ommend offloading with silicone gel sleeve and wide soft shoe gear with athletic supportive shoes.Foll ow-up as needed Hammer toe 489924755 M20 .41 M20.42 as above [id number] Torin Villalpando MD [facility] [address] [facility] [address] [place] [address] 05/06/2023 09:20:27 05/06/2023 09:54:26 Essential hypertension 28103983 I10 stablecont inue lisinopril 10 mg daily, metoprolol ER 25 mg daily, amlodipine 5 mg daily Benign pro static hyperplasia 804177196 N40.[address] Thurston, will have procedure in June Health Concerns Section Related Observation LastModified by Organization Detai ls LastModified Time None Recorded Concern Status LastModified by Organization Details LastModified Time None Recorded Advance Directives Directive None Recorded Payers Encounter Date Sequence Insurance Name Policy Number Policy Kim Covered Member ID Kim Member ID Guarantor Name 10/29/2022 1 [place] Leandro Salinas [id number] Leandro Salinas 10/29/2022 2 [place] Leandro Salinas [id number] Leandro Salinas 01/29/2023 1 [place] Le[place] Salinas [id number] Leandro Salinas 01/29/2023 2 [place] Leandro Salinas [id number] Leandro Salinas 02/04/2023 1 [place] Leandro Salinas [id number] Leandro Salinas 02/04/2023 2 [place] Leandro Salinas [id number] Leandro Salinas 05/06/2023 1 [place] Leandro Salinas [id number] Leandro Salinas 05/06/2023 2 [facility] (MEDICARE SUPPLEMENT) Leandro Salinas [id number] Leandro Salinas Notes Date Note Type Note Provider Name and Address Organization Details Recorded Time 10/29/2022 text/html Here for wellnes s exam Torin Villalpando MD [address] [facility], [place], [address], [employer] 10/29/2022 09:47:06 01/29/2023 text/html ears feel clogge d, tinnitus is louder. He has needed ears flushed in the past. Torin Villalpando MD [address] [employer], [place], [address], [employer] 01/29/2023 09:27:15 02/04/2023 text/html . Patient is [...] any other complaints. Milan Edward DPM [address], [place], [address], [employer] 02/04/2023 12:45:13 05/06/2023 text/html Here to f/u on htn. He is checking home blood pressures and they are normal . No chest pain, no sob. He is working with Dr. Thurston and is planning to have a debulking procedure on the prostate due to BPH in June. Torin Villalpando MD [address] [employer], [place], [address], [employer] 05/06/2023 09:46:36
[2024-06-26 09:51] LABS: Free T3 3.57 pg/mL (2.45-5.93); Free T4 Free Thyroxine 1.08 ng/dL (0.78-2.19)
== END 2024-06-26 07:45 | disposition home or self-care (01) ==
LOC: ANHLAB 07:45
PROVIDERS: PCP Family Medicine; Visit Provider Student in an Organized Health Care Education/Training Program
DX: E03.9 Hypothyroidism, unspecified (principal)
CPT/HCPCS: 36415; 84439; 84443; 84481

== ENCOUNTER 2024-09-14 09:09 | Outpatient (CLI) | payer MEDICARE, SELFPAY ==
[2024-09-14 09:47] LABS: Alanine Aminotransferase 21 U/L (6-50); Aspartate Amino Transferase 53 U/L (17-59)
--- OUTSIDE RECORDS SUMMARY | 2024-09-14 09:48 | XMS_ITS | Data Portability ---
Author Organization [facility] [employer], Main Office Address [address] [place] [address] Care Team Providers Care Director Counseling Bureau Name Role Phone TORIN VILLALPANDO Primary Care Provider TORIN VILLALPANDO Referring Provider Assessment Encounter Date Assessment Date Assessment LastModified by Organization Details LastModified Time 02/04/2023 02/04/2023 This note is dictated and transcribed by [employer]. Napper [employer]ner variances may occur. Despite proofreading, typographical errors may occur. [email or web address] Not available 02/04/2023 12:43:17 Plan of Treatment Reminders Order Date Submit Date Provider Last Modified By Organization Details Last Modified Time Details Appointments None recorded. Lab lipid panel, serum [address] (Lab), [address] [place], [address], 10:31:33 hepatic function panel, serum [address] (Lab), [address] [place], [address], 10:31:59 glycohemog lobin, total, blood [address] (Lab), [address] [place], [address], 10:30:42 CBC w/ auto diff [address] (Lab), [address] [place], [address], 10:30:19 BMP, serum or plasma [address] (Lab), [address] [place], [address], 10:30:56 PSA, serum or plasma [address] (Lab), [address] [place], [address], 10:23:59 Referral None recorded. Procedures None recorded. Surgeries None recorded. Imaging None recorded. Medication Orders None recorded. Patient TargetsNo targets recorded. Patient Instructions Encounter Date Encounter Id Patient Instructions Last Modified By Organization Details Last Modified Time 10/29/2022 [id number] dementia rating scale-2* JUSTYN Not available 10/29/2022 10:29:42 alcohol misuse* JUSTYN Not available 10/29/2022 10:30:11 depression screening* JUSTYN Not available 10/29/2022 10:30:33 multi-dimensiona l health assessment questionnaire* JUSTYN Not available 10/29/2022 10:29:56 advance care planning: care instructions Not available 10/29/2022 09:43:19 advance directiv es: care instructions Not available 10/29/2022 09:43:19 [place] Advance Directives Not available 10/29/2022 09:43:19 risk assessment* JUSTYN Not available 10/29/2022 10:32:34 Personalized [facility] Plan and Screening Recommendations Advance Directives - Do you have one? Yes Advance Directives - Do we have your advance directive on file in your health record? No, please bring in a copy at your earliest convenience Primary Prevention/Interven tion (prevents or decreases the chance of common diseases from occurring) Smoking Risk: Non Smoker Refer to attached smoking cessation handouts Refer to attached handouts and prescription will be sent to pharmacy Continue to consider stopping smoking and call if we can assist you Recommend screening for possible Emphysema with pulmonary function testing Recommend lung cancer screening with low dose CT scan of the chest I have no recommendations. Alcohol Misuse Screening: Negative Refer to attached alcohol cessation handout Refer to attached handout and prescription will be sent to pharmacy Decrease alcohol intake to 2 or less servings per day Continue to consider stopping alcohol and call if we can assist you Recommend referral for alcohol counseling/rehabili tation I have no recommendations. Weight: Appropriate Physical activity: Appropriate physical activity Nutrition: Good Fall Risk (screened today): Intermediate Refer to attached handout Preventing Falls: After your Visit Vaccines Pneumococcal: Recommended today, but you have declined Influenza: Your next one in the fall of this year Chronic Disease Risks Stroke: Intermediate Risk I have no recommendations Act dany diagnosis, Continue current treatment plan My recommendation would be to make an appointment for further testing Continue current treatment plan Heart Attack: Intermediate Risk I have no recommendations Act dany diagnosis, Continue current treatment plan My recommendation would be to make an appointment for further testing Continue current treatment plan Clogging of the Arteries: Intermediate Risk I have no recommendations Act dany diagnosis, Continue current treatment plan My recommendation would be to make an appointment for further testing Continue current treatment plan Diabetes: Low Risk I have no recommendations Secondary Prevention/Interven tion (detects treatable diseases before they may cause symptoms, disability, or ) Prostate Cancer Screening: Your next PSA in: No PSA screening necessary PSA recommended today No digital rectal exam screening necessary Colon Cancer Screening: Colonoscopy No screening necessary Date Screening Last Performed: 01/10/22 Eye Disease Screening: Ordered Recommended today Recommended today, but you have declined No Eye exam necessary Yearly visits Dementia Risk: Low I have no recommendations Depression Screening: Negative Recommend additional evaluation and/or treatment as noted above Recommend follow appointment to further evaluate Recommend Behavioral Health referral Active diagnosis, Continue current treatment plan I have no recommendations. Not available 10/29/2022 09:42:41 Reason for Referral None Reported. Results Created Date Observation Date Name Description Value Unit Range Abnormal Flag Note LastModifiedBy Organization Detail LastModifiedTime 10/30/19 23 10/29/2022 CBC/C OMPLE TE BLD COUNT W/DIF F white blood cells 4.7 x10'3 /uL 4.2-10 .8 Not Available [facility] (Lab) [address] [place], [address], 10/29/2022 19:39:23 10/30/1910/29/2022 CBC/C OMPLE TE BLD COUNT W/DIF F red blood cells 4.32 x10'6 /uL 4.10-5 .80 Not Available [facility] (Lab) [address] [place], [address], 10/29/2022 19:39:23 10/30/1910/29/2022 CBC/C OMPLE TE BLD COUNT W/DIF F hemoglobin 13.2 g/dL 13.2-1 7.0 Not Available [facility] (Lab) [address] [place], [address], 10/29/2022 19:39:23 10/30/1910/29/2022 CBC/C OMPLE TE BLD COUNT W/DIF F hematocrit 41.3 % 39.3-5 0.0 Not Available [facility] (Lab) [address] [place], [address], 10/29/2022 19:39:23 10/30/1910/29/2022 CBC/C OMPLE TE BLD COUNT W/DIF F mean red cell volume 95.6 fL 80.0-9 7.0 Not Available [facility] (Lab) [address] [place], [address], 10/29/2022 19:39:23 10/30/1910/29/2022 CBC/C OMPLE TE BLD COUNT W/DIF F mean red cell hemoglobin 30.6 pg 27.0-3 3.0 Not Available [facility] (Lab) [address] [place], [address], 10/29/2022 19:39:23 10/30/1910/29/2022 CBC/C OMPLE TE BLD COUNT W/DIF F mean RBC HGB concentratio n 32.0 g/dL 31.0-3 6.0 Not Available [facility] (Lab) [address] [place], [address], 10/29/2022 19:39:23 10/30/1910/29/2022 CBC/C OMPLE TE BLD COUNT W/DIF F red cell distribution width 14.4 % 11.8-1 5.5 Not Available [facility] (Lab) [address] [place], [address], 10/29/2022 19:39:23 10/30/1910/29/2022 CBC/C OMPLE TE BLD COUNT W/DIF F platelets 195 x10'3 /uL 150-40 0 Not Available [facility] (Lab) [address] [place], [address], 10/29/2022 19:39:23 10/30/1910/29/2022 CBC/C OMPLE TE BLD COUNT W/DIF F mean platelet volume 12.1 fL 9.0-12 .4 Not Available [facility] (Lab) [address] [place], [address], 10/29/2022 19:39:23 10/30/1910/29/2022 CBC/C OMPLE TE BLD COUNT W/DIF F neutrophils 62.6 % 39.0-7 2.0 Not Available [facility] (Lab) [address] [place], [address], 10/29/2022 19:39:23 10/30/1910/29/2022 CBC/C OMPLE TE BLD COUNT W/DIF F lymphocytes 23.1 % 16.0-4 7.0 Not Available [facility] (Lab) [address] [place], [address], 10/29/2022 19:39:23 10/30/1910/29/2022 CBC/C OMPLE TE BLD COUNT W/DIF F monocytes 10.3 % 5.0-12 .0 Not Available [facility] (Lab) [address] [place], [address], 10/29/2022 19:39:23 10/30/1910/29/2022 CBC/C OMPLE TE BLD COUNT W/DIF F eosinophils 3.4 % 1.0-7. 0 Not Available [facility] (Lab) [address] [place], [address], 10/29/2022 19:39:23 10/30/1910/29/2022 CBC/C OMPLE TE BLD COUNT W/DIF F basophils 0.4 % 0.0-2. 0 Not Available [facility] (Lab) [address] [facility] [place], [address], 10/29/2022 19:39:23 10/30/1910/29/2022 CBC/C OMPLE TE BLD COUNT W/DIF F immature granulocytes 0.2 % 0.00-0 .50 Not Available [facility] (Lab) [address] [place], [address], 10/29/2022 19:39:23 10/30/1910/29/2022 CBC/C OMPLE TE BLD COUNT W/DIF F neutrophils, absolute count 2.93 x10'3 /uL 1.5-8. 0 Not Available [facility] (Lab) [address] [place], [address], 10/29/2022 19:39:23 10/30/1910/29/2022 CBC/C OMPLE TE BLD COUNT W/DIF F lymphocytes, absolute count 1.08 x10'3 /uL 1.07-3 .43 Not Available [facility] (Lab) [address] [place], [address], 10/29/2022 19:39:23 10/30/1910/29/2022 CBC/C OMPLE TE BLD COUNT W/DIF F monocytes, absolute count 0.48 x10'3 /uL 0.29-0 .99 Not Available [facility] (Lab) [address] [place], [address], 10/29/2022 19:39:23 10/30/1910/29/2022 CBC/C OMPLE TE BLD COUNT W/DIF F eosinophils, absolute count 0.16 x10'3 /uL 0.02-0 .53 Not Available [facility] (Lab) [address] [place], [address], 10/29/2022 19:39:23 10/30/1910/29/2022 CBC/C OMPLE TE BLD COUNT W/DIF F basophils, absolute count 0.02 x10'3 /uL 0.01-0 .08 Not Available [facility] (Lab) [address] [place], [address], 10/29/2022 19:39:23 10/30/1910/29/2022 CBC/C OMPLE TE BLD COUNT W/DIF F immature granulocytes ,absolute 0.01 x10'3 /uL 0.00-0 .05 Not Available [facility] (Lab) [address] [place], [address], 10/29/2022 19:39:23 10/30/1910/29/2022 CBC/C OMPLE TE BLD COUNT W/DIF F nucleated red blood cells 0.0 % -0 Not Available [facility] (Lab) [address] [place], [address], 10/29/2022 19:39:23 10/30/1910/29/2022 CBC/C OMPLE TE BLD COUNT W/DIF F NRBC# 0.00 x10'3 /uL Not Available [facility] (Lab) [address] [place], [address], 10/29/2022 19:39:23 10/30/1910/29/2022 BASIC METAB OLIC PANEL sodium 138 mmol/ L 137-14 5 Not Available [facility] (Lab) [address] [place], [address], 10/29/2022 20:01:38 10/30/19 23 10/29/2022 BASIC METAB OLIC PANEL potassium 4.2 mmol/ L 3.5-5. 1 Not Available [facility] (Lab) [address] [place], [address], 10/29/2022 20:01:38 10/30/19 23 10/29/2022 BASIC METAB OLIC PANEL chloride 103 mmol/ L 98-107 Not Available [facility] (Lab) [address] [place], [address], 10/29/2022 20:01:38 10/30/19 23 10/29/2022 BASIC METAB OLIC PANEL carbon dioxide 28 mmol/ L 22-30 Not Available [facility] (Lab) [address] [place], [address], 10/29/2022 20:01:38 10/30/19 23 10/29/2022 BASIC METAB OLIC PANEL anion gap 11.2 mmol/ L 14-22 low Not Available [facility] (Lab) [address] [place], [address], 10/29/2022 20:01:38 10/30/19 23 10/29/2022 BASIC METAB OLIC PANEL glucose 97 mg/dL 70-99 Not Available [facility] (Lab) [address] [place], [address], 10/29/2022 20:01:38 10/30/19 23 10/29/2022 BASIC METAB OLIC PANEL BUN 22 mg/dL 8-19 high Not Available [facility] (Lab) [address] [place], [address], 10/29/2022 20:01:38 10/30/19 23 10/29/2022 BASIC METAB OLIC PANEL creatinine 0.80 mg/dL 0.66-1 .25 Not Available [facility] (Lab) [address] [place], [address], 10/29/2022 20:01:38 10/30/19 23 10/29/2022 BASIC METAB OLIC PANEL GFR >60 Refer ence Range : [place] ge GFR Healt hy Adult : >60 [...] calcu lator is avail able on the F websi te: https ://ww w.kid ramírez.o rg/pr ofess ional s/kdo qi/gf r_cal culat or Not Available [facility] (Lab) [address] [place], [address], 10/29/2022 20:01:38 10/30/1910/29/2022 BASIC METAB OLIC PANEL calcium 9.4 mg/dL 8.4-10 .2 Not Available [facility] (Lab) [address] [place], [address], 10/29/2022 20:01:38 10/30/19 23 10/29/2022 LIPID PANEL cholesterol 149 mg/dL 140-19 9 NIH JACK NSUS RECOM MENDA TION FOR VIV STERO L: ADULT CHILD LOW RISK: <200 <170 BORDE RLINE : <200- 239 ----- HIGH RISK: >240 >200 Not Available [facility] (Lab) [address] [place], [address], 10/29/2022 20:01:45 10/30/19 23 10/29/2022 LIPID PANEL triglyceride s 59 mg/dL 0-150 NIH JACK NSUS REPOR T RECOM MENDA TION FOR TRIGL YCERI JOCELYN: ADULT CHILD LOW RISK: <150 ----- BODER LINE: 150-1 99 ----- HIGH RISK: >200 ----- Not Available [facility] (Lab) [address] [place], [address], 10/29/2022 20:01:45 10/30/19 23 10/29/2022 LIPID PANEL HDL cholesterol 87 mg/dL 40- Not Available [facility] (Lab) [address] [place], [address], 10/29/2022 20:01:45 10/30/19 23 10/29/2022 LIPID PANEL [...] WILL NOT BE REPOR NATHANIEL. Not Available [facility] (Lab) [address] [place], [address], 10/29/2022 20:01:45 10/30/19 23 10/29/2022 HEPAT IC/LI CRUZ PANEL alkaline phosphatase 70 U/L 38-126 Not Available [facility] (Lab) [address] [place], [address], 10/29/2022 20:01:47 10/30/19 23 10/29/2022 HEPAT IC/LI CRUZ PANEL alanine aminotransfe rase 38 U/L 0-50 Not Available [facility] (Lab) [address] [place], [address], 10/29/2022 20:01:47 10/30/19 23 10/29/2022 HEPAT IC/LI CRUZ PANEL aspartate aminotransfe rase 45 U/L 15-46 Not Available [facility] (Lab) [address] [place], [address], 10/29/2022 20:01:47 10/30/19 23 10/29/2022 HEPAT IC/LI CRUZ PANEL bilirubin, total 0.50 mg/dL 0.20-1 .30 Not Available [facility] (Lab) [address] [place], [address], 10/29/2022 20:01:47 10/30/19 23 10/29/2022 HEPAT IC/LI CRUZ PANEL bilirubin, conjugated (direct) 0.00 mg/dL 0.00-0 .30 Not Available [facility] (Lab) [address] [place], [address], 10/29/2022 20:01:47 10/30/19 23 10/29/2022 HEPAT IC/LI CRUZ PANEL biliurubin,u ncong. (indirect) 0.40 mg/dL 0.00-1 .1 Not Available [facility] (Lab) [address] [place], [address], 10/29/2022 20:01:47 10/30/19 23 10/29/2022 HEPAT IC/LI CRUZ PANEL total protein 6.5 g/dL 6.3-8. 2 Not Available [facility] (Lab) [address] [place], [address], 10/29/2022 20:01:47 10/30/19 23 10/29/2022 HEPAT IC/LI CRUZ PANEL albumin 3.9 g/dL 3.0-4. 4 Not Available [facility] (Lab) [address] [place], [address], 10/29/2022 20:01:47 10/30/19 23 10/29/2022 HEPAT IC/LI CRUZ PANEL globulin 2.6 g/dL 2.6-4. 2 Not Available [facility] (Lab) [address] [place], [address], 10/29/2022 20:01:47 10/30/19 23 10/29/2022 HEPAT IC/LI CRUZ PANEL A/G ratio 1.5 ratio 1.0-2. 0 Not Available [facility] (Lab) [address] [place], [address], 10/29/2022 20:01:47 10/30/19 23 10/29/2022 PSA, TOTAL PSA, total 1.15 NG/mL 0.00-4 .00 Not Available [facility] (Lab) [address] [place], [address], 10/29/2022 20:38:47 10/30/1910/29/2022 HEMOG LOBIN A1C HA1C 5.4 % 4.0-6. 0 Diabe marlena Scree alem Crite julius: <5.7% Consi stent with absen ce of diabe marlena 5.7-6 .4% Consi stent with incre ased risk for diabe marlena (pred iabet es) >OR=6 .5% Consi stent with diabe marlena REFER ENCE: Diabe marlena Care 2016, 39(Watson ppl.1 ):s13 -s22 Not Available [facility] (Lab) [address] [place], [address], 10/29/2022 21:33:13 Result Notes None recorded. Problems Name Problem SNOMED Code Status Onset Date Resolution Date Notes Provider Name and Address Organization Details Recorded Time Decreased hearing 246741604 Active Not Available [facility] 3 06:07:51 Bilateral wrist pain 6511747551075 9105 Active 2021 Not Available [facility] 3 06:07:51 Benign essential hypertensi on 2969614 Active Not Available [facility] 3 06:07:51 Plantar fasciitis of left foot 8441453353930 9101 Active 2017 Not Available [facility] 3 06:07:51 Impacted cerumen 97454293 Active Not Available [facility] 3 06:07:52 Cataract 272892667 Active Not Available [facility] 3 06:07:52 Peripheral venous insufficie ncy 79482517 Active Not Available [facility] 3 06:07:52 Benign prostatic hyperplasi a with outflow obstructio n 151795610 Active Not Available [facility] 3 06:07:52 Labyrinthi tis 84288590 Active Not Available [facility] 3 06:07:52 Tremor 86366400 Active Not Available [facility] 3 06:07:52 Benign prostatic hyperplasi a 360619726 Active Not Available [facility] 3 06:07:52 Orthostati c hypotensio n 93262330 Active Not Available [facility] 3 06:07:52 Carpal tunnel syndrome of left wrist 1436601917468 02 Active 2021 Not Available [facility] 3 06:07:52 Carpal tunnel syndrome of right wrist 7191421747389 08 Active 2021 Not Available [facility] 3 06:07:53 Rib pain 410511350 Active Not Available [facility] 3 06:07:53 Hand muscle weakness 900338289 Active Not Available [facility] 3 06:07:53 Dehydratio n 00586456 Active Not Available [facility] 3 06:07:53 Arthritis 1395472 Active 2017 Not Available [facility] 3 06:07:53 Hypertensi ve disorder 14864942 Active Not Available [facility] 3 06:07:53 Neuropathy 163744609 Active Not Available [facility] 3 06:07:53 Inguinal hernia 733290392 Active Not Available [facility] 3 06:07:54 Vertigo 257459320 Active Not Available [facility] 3 06:07:54 Dizziness 966013158 Active Not Available [facility] 3 06:07:54 Vomiting 120184282 Active Not Available [facility] 3 06:07:54 Nausea 764896950 Active Not Available [facility] 3 06:07:54 Muscle strain 89943805 Active Not Available [facility] 3 06:07:54 Disorder of bursa of shoulder region 58328026 Active Not Available [facility] 3 06:07:54 Varicose veins of lower extremity 43394314 Active Not Available [facility] 3 06:07:55 Hyperglyce fredy 73468068 Active Not Available [facility] 3 06:07:55 Spinal stenosis in cervical region 01026914 Active Not Available [facility] 3 06:07:55 Primary malignant neoplasm of skin of face 14138065 Active Not Available [facility] 3 06:07:55 Actinic keratosis 551007823 Active 2022 Torin Villalpando MD [address], [address] , [facility] [employer] [facility] 3 09:39:27 Hyperlipid emia 10057154 Active 2022 Torin Villalpando MD [address], [place], [address] , [facility] [employer] [facility] 3 09:39:42 Impacted cerumen 26458088 Active 2022 Torin Villalpando MD [address], [place], [address] , [facility] [employer] [facility] 3 08:56:55 Vaginitis 22561677 Active 2022 Torin Villalpando MD [address], [address] , [facility] [employer] [facility] 3 09:10:30 Dystrophia unguium 94807267 Active 2022 Milan Edward DPM [address], [address] , [facility] [employer] [facility] [employer] [facility] 3 12:41:59 Subungual hematoma of lesser toe 423029247 Active 2022 Milan Edward DPM [address], [address], [address] , [facility] [employer] [facility] 3 12:42:40 Bunion 960391232 Active 2022 Milan Edward DPM [address], [address], [address] , [facility] [employer] [facility] [employer] [facility] 3 12:43:20 Hammer toe 069815792 Active 2022 Milan Edward DPM [address], [address] , [facility] [employer] [facility] 3 12:43:31 Bunion 355980659 Active 2022 Milan Edward DPM [address], [address] , [facility] [employer] [facility] 3 12:43:40 Essential hypertensi on 75513283 Active 2023 Torin Villalpando MD [address], [address] , [facility] [employer] [facility] 4 09:37:49 Notes:allergies, cancer, pro state, numbness or tingling, cataracts/glaucoma, ringing in ears Problem Notes None recorded. Procedures Surgical History Date Name Laterality Status Provider Name and Address Organization Details Recorded Time 02/05/20 Nail Debridement completed Milan Edward, ABEL [address], [place], [address], [facility] [employer] [facility] 02/04/2023 12:41:53 10/30/19 Medicare Wellness CPT Code, subsequent completed Shayy Stanley RN [facility] [employer] [facility] 10/25/2022 15:12:46 06/10/19 19 Cardiac Cath completed Not Available [facility] 023 05:58:45 07/02/19 12 colonoscopy completed Not Available [facility] 06/07/19 05:58:45 Imaging Results None recorded. Procedure Notes None recorded. Medical Equipment None Reported. Allergies Allergen ID Allergen Name Allergen Category Reaction Reaction Severity Criticality Documentation Date Start Date Code Code System Note Provider Name and Address Organization Details Recorded Time 69263 Product containin g penicilli n (product) medicatio n rash Not available Not available 06/06/2022 54906 8001 SNOMED Not Available [facility] 06:19:31 Medications Name Sig Start Date Stop [...] % 99 % 80 /min 97.6 [degF] 79247.5 6 g 128 mm[Hg] 76 mm[Hg] Not Available [facility] 3 06:00:21 Date Recorded Oxygen saturation Oxygen saturation in Arterial blood by Pulse oximetry Systolic blood pressure Diastolic blood pressure Provider Name and Address Organization Details Last Updated DateTime 05/06/2023 97 % 97 % 138 mm[Hg] 88 mm[Hg] Torin Villalpando MD [address] [employer] [address], [address], [employer] 4 09:43:28 Date Recorded Body height Body mass index (BMI) Body weight Body temperature Heart rate Provider Name and Address Organization Details Last Updated DateTime 05/06/2023 165.1 cm 25.6 kg/m2 05721.22 g 97.3 [degF] 85 /min Savana Cleveland RN [facility] [employer] 4 09:26:07 Date Recorded Systolic blood pressure Diastolic blood pressure Provider Name and Address Organization Details Last Updated DateTime 10/29/2022 140 mm[Hg] 70 mm[Hg] Torin Villalpando MD [address], [place], [address], [employer] 10/29/2022 09:28:51 Date Recorded Body height Body mass index (BMI) Body weight Body temperature Heart rate Oxygen saturation Oxygen saturation in Arterial blood by Pulse oximetry Provider Name and Address Organization Details Last Updated DateTime 3 165.1 cm 26.3 kg/m2 47620.5 9 g 97.7 [degF] 76 /min 98 % 98 % Savana Cleveland RN [facility] [employer] 3 09:15:11 Date Recorded Body height Body mass index (BMI) Body weight Body temperature Heart rate Oxygen saturation Oxygen saturation in Arterial blood by Pulse oximetry Systolic blood pressure Diastolic blood pressure Provider Name and Address Organization Details Last Updated DateTime 3 165.1 cm 25.5 kg/m2 32069.6 3 g 98.7 [degF] 84 /min 97 % 97 % 156 mm[Hg] 88 mm[Hg] Jenni Elena CNA [facility] [employer] [facility] 3 08:39:30 Date Recorded Body height Body mass index (BMI) Body weight Heart rate Respiratory rate Oxygen saturation Oxygen saturation in Arterial blood by Pulse oximetry Systolic blood pressure Diastolic blood pressure Provider Name and Address Organization Details Last Updated DateTime 3 165.1 cm 25.5 kg/m2 31736.6 3 g 80 /min 14 /min 98 % 98 % 149 mm[Hg] 82 mm[Hg] Sherine Dickerson [facility] [employer] [facility] 3 12:23:40 Social History Question Answer Notes LastModified by [employer] Details LastModified Time Tobacco Smoking Status Former Smoker quit 1987 Not Available [facility] 06/06/2022 05:55:56 What Is Your Level Of Caffeine Consumption? Occasional [id number] Information not available 06/06/2022 How Much Tobacco Do You Chew? None [id number] Information not available 06/06/2022 What Type Of Diet Are You Following? REGULAR [id number].[id number] Information not available 06/06/2022 Which Illicit Or Recreational Drugs Have You Used? NO MIGRATION.[id number] 9971 Information not available 06/06/2022 What Was The Date Of Your Most Recent Tobacco Screening? 10/29/2022 Information not available 10/29/2022 At What Age Did You Start Smoking Tobacco? 18 [id number].[id number] Information not available 06/06/2022 Sex: Unknown Functional Status Question Answer Note LastModified by [employer] Details LastModified Time What is your level of alcohol consumption? Occasional [id number] Information not available 06/06/2022 Do you or have you ever used smokeless tobacco? Never used smokeless tobacco MIGRATION.[id number] 026 Information not available 06/06/2022 What is your occupation? [employer] MIGRATION.[id number] 026 Information not available 06/06/2022 Do you or have you ever used e-cigarettes or vape? Never used electronic cigarettes MIGRATION.[id number] 026 Information not available 06/06/2022 What is your exercise level? Moderate MIGRATION.[id number] 026 Information not available 06/06/2022 Mental Status None recorded. Family History Relationship Description Onset Age of this Age Resolved Age Notes LastModified by Organization Details LastModified Time Mother Essential hypertension MIGRATION.115 [id number] Not available 06/06/2022 05:58:47 Father Malignant neoplasm of lung MIGRATION.971 [id number] Not available 06/06/2022 05:58:47 Father Malignant neoplasm of prostate MIGRATION.345 [id number] Not available 06/06/2022 05:58:48 Medical History Condition [...] mcg/0.3 mL dose 06/20/2020 completed Not Available [facility] 3 06:18:47 COVID-19, mRNA, LNP-S, PF, 30 mcg/0.3 mL dose 05/30/2020 completed Not Available [facility] 3 06:18:47 Past Encounters Encounter ID Performer Location Encounter Start Date Encounter Closed Date Diagnosis/Indication Diagnosis SNOMED-CT Code Diagnosis ICD10 Code Diagnosis Note [id number] Torin Villalpando MD [facility] Primary Care [facility] [address] [place] [address] 10/06/2020 00:00:00 10/28/2020 10:57:54 [id number] Torin Villalpando MD [facility] Primary [place] [address] [place] [address] 10/19/2020 00:00:00 10/19/2020 18:34:22 [id number] Torin Villalpando MD [facility] Primary [place] [address] [place] [address] 04/17/2021 00:00:00 04/17/2021 08:37:09 [id number] Torin Villalpando MD [facility] Primary [place] [address] [place] [address] 10/16/2021 00:00:00 10/16/2021 09:23:40 [id number] Chetan Cee MD [facility] [address] [place] [address] 11/15/2021 00:00:00 11/17/2021 10:38:03 [id number] Torin Villalpando MD [facility] [place] [address] [place] [address] [address] [place] [address] 12/04/2021 00:00:00 12/05/2021 21:58:48 [id number] Chetan Cee MD [facility] [address] 01/04/2022 00:00:00 01/04/2022 09:35:55 [id number] MD MARTHA [facility] [place] [address] [place] [address] [address] [place] [address] 01/16/2022 00:00:00 01/16/2022 09:50:28 [id number] Chetan Cee MD [facility] [address] 02/08/2022 00:00:00 02/08/2022 12:00:20 [id number] Chetan Cee MD [facility] [address] 03/29/2022 00:00:00 03/29/2022 16:43:57 [id number] Torin Villalpando MD [facility] [place] [address] [place] [address] [address] [place] [address] 04/30/2022 00:00:00 04/30/2022 11:41:02 [id number] Torin Villalpando MD [facility] [place] [address] [place] [address] [address] [place] [address] 10/29/2022 09:03:01 10/29/2022 09:54:59 Adult health examination 819690202 Z00.00 screen fasting labshep c screen negative 07/24remain a nonsmokerc olonoscopy referral given done last 06/17-repea t 2022flu vaccine yearlycovi d booster per cdc guidelines recommend shingrix vaccine series Screening for disorder 602865302 Z13.9 Benign ess ential hypertension 4528824 I10 stablecont inue current meds Benign pro static hyperplasia 899154535 N40.[address] Thusrton Hyperglycemia 29350520 R 73.9 Actinic keratosis 115882 [address] Peck Hyperlipidemia 67076375 E78.5 Z79.899 stableator vastatin 10 mg daily [id number] Torin Villalpando MD 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 L60.3 secondary to toe deformity and pressureaf fected nails debrided without incidentre commend wide soft toe box style shoe gearmay utilize a silicone toe cap to protect toes and nailsfollo w-up as needed Subungual hematoma of lesser toe 011884304 S90.221A S90.222A allowed nails regrowfile d areas to prevent pressureed ucated on conditiond enies wanting surgery Bunion 292560396 M21.61 1 M21.612 educated on conditionT reatment options reviewed in detailPati ent defers surgeryRec ommend offloading with silicone gel sleeve and wide soft shoe gear with athletic supportive shoes.Foll ow-up as needed Hammer toe 428213110 M20 .41 M20.42 as above [id number] Torin Villalpando MD [facility] [address] [place] [address] 05/06/2023 09:20:27 05/06/2023 09:54:26 Essential hypertension 73489605 I10 stablecont inue lisinopril 10 mg daily, metoprolol ER 25 mg daily, amlodipine 5 mg daily Benign pro static hyperplasia 328708260 N40.[address] Thurston, will have procedure in June Health Concerns Section Related Observation LastModified by Organization Detai ls LastModified Time None Recorded Concern Status LastModified by Organization Details LastModified Time None Recorded Advance Directives Directive None Recorded Payers Encounter Date Sequence Insurance Name Policy Number Policy Kim Covered Member ID Kim Member ID Guarantor Name 10/29/2022 1 [place] Leandro Salinas [id number] Leandro Salinas 10/29/2022 2 [place] Leandro Salinas [id number] Leandro Salinas 01/29/2023 1 [place] Leandro Salinas [id number] Leandro Salinas 01/29/2023 2 [place] Leandro Salinas [id number] Leandro Salinas 02/04/2023 1 [place] Leandro Salinas [id number] Leandro Salinas 02/04/2023 2 [place] Leandro Salinas [id number] Leandro Salinas 05/06/2023 1 [place] Leandro Salinas [id number] Leandro Salinas 05/06/2023 2 [place]) Leandro Salinas [id number] Leandro Salinas Notes Date Note Type Note Provider Name and Address Organization Details Recorded Time 10/29/2022 text/html Here for andrea s exam Torin Villalpando MD [address] [facility], [facility] [address], [place], [address], [facility] 10/29/2022 09:47:06 01/29/2023 text/html ears feel clogge d, tinnitus is louder. He has needed ears flushed in the past. Torin Villalpando MD [address], [facility] [address], [place], [address], [employer] [facility] [employer] 01/29/2023 09:27:15 02/04/2023 text/html . Patient is [...] other complaints. Milan Edward DPM [address], [facility] [address], [place], [address], [employer] [facility] [employer] 02/04/2023 12:45:13 05/06/2023 text/html Here to f/u on htn. He is checking home blood pressures and they are normal. No chest pain, no sob. He is working with Dr. Thurston and is planning to have a debulking procedure on the prostate due to BPH in June. Torin Villalpando MD [address], [facility] [address], [place], [address], [employer] 05/06/2023 09:46:36
--- OUTSIDE RECORDS SUMMARY | 2024-09-14 09:48 | XMS_ITS | Clinical Summary ---
Author Organization [facility] Address [address] [place] [address] Care Team Providers Care Corporate Quality Assurance Manager Name Role Phone Emory Hu Primary Care Provider Source Comments [facility] [employer],non-owned Affiliates and Associated Physician Practices is amultiple site organization consisting of ambulatory clinics and hospital sitesin [place], [place], [place] and [place]. This disclosure is being madepursuant to the Care Everywhere program and may not contain all information available regarding this patient. Last updated 17.[facility] [employer] Allergies Active Allergy Reactions Criticality Noted Date Comments Penicillins 12/14/2014 Medications * Be aware that medications may not be up to date on this document. Alwaysverify current medications with the patient. aspirin (ASPIRIN) 81 MG tablet Take 81 [...] area every 4 hours as needed for Nausea/Vomitin g Active Social History Tobacco Use Types Packs/Day Years Used Date Smoking Tobacco: Former Smokeless Tobacco: Never Alcohol Use Standard Drinks/Week Comments Yes 0 (1 standard drink = 0.6 oz pur e alcohol) Sex and Gender Information Value Date Recorded Sex Assigned at Not on file Legal Sex Male 3:34 PM CDT Gender Identity Not on file Sexual Orientation Not on file Occupation Industry Job Start Date Job End Date [employer]AD[employer] Not on file Not on file Not on file Last Filed Vital Signs Vital Sign Reading Time Taken Comments Blood Pressure - - Pulse - - Temperature - - Respiratory Rate - - Oxygen Saturation - - Inhaled Oxygen Concentration - - Weight 71.7 kg (158 lb) 12/14/2014 8:17 AM CDT Height 170.2 cm (5' 7) 12/14/2014 8:17 AM CDT Body Mass Index [...] VACCINE ( - 2023-2 5 season) 2023 DEPRESSION SCREENING 04/08/2024 INFLUENZA VACCINE (Season Ended) 2024 HEPATITIS B VACCINE Aged Out No longe [...] on patient's age to complete this topic Insurance MEDICARE MEDICARE SUPPLEMENT PAYOR GENERIC MEDICARE SUPPLEMENT [employer] GENERIC MEDICARE SUPPLEMENT [place] GENERIC MEDICARE MEDICARE SUPPLEMENT PA[employer] GENERIC Care Teams Corporate Quality Assurance Manager Relationship Specialty Start Date End Date Emory Hu DO PCP - General Internal Medicine 11/08/14
--- OUTSIDE RECORDS SUMMARY | 2024-09-14 09:48 | XMS_ITS | Referral Summary ---
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 Gender Identity Male 01/23/2021 8:46 PM CDT Sexual Orientation Not on file Last Filed Vital Signs Vital Sign Reading Time Taken Comments Blood Pressure 180/96 03/11/2024 9:04 AM CERTIFIED MEDICAL TECHNICIAN ASSISTANT Pulse 77 03/11/2024 9:04 AM CERTIFIED MEDICAL TECHNICIAN ASSISTANT Temperature - - Respiratory Rate 12 10/08/2019 8:28 AM CDT Oxygen Saturation 99% 03/11/2024 9:04 AM CERTIFIED MEDICAL TECHNICIAN ASSISTANT Inhaled Oxygen Concentration - - Weight 70.8 kg (156 lb) 03/11/2024 9:04 AM CERTIFIED MEDICAL TECHNICIAN ASSISTANT Height 165.1 cm (5' 5) 03/11/2024 9:04 AM CERTIFIED MEDICAL TECHNICIAN ASSISTANT Body Mass Index 25.96 03/11/2024 9:04 AM CERTIFIED MEDICAL TECHNICIAN ASSISTANT Plan of Treatment Not on file Insurance MEDICARE COMMERCIAL GENERIC MEDICARE AETNA SENIOR SUPPLEMENT MEDICARE COMMERCIAL GENERIC Care Teams Silk Examiner Relationship Specialty Start Date End Date Shan Rubio MD [address] [facility] [address] [place], [place] [address] PCP - General Family Medicine 03/11/24
--- OUTSIDE RECORDS SUMMARY | 2024-09-14 09:48 | XMS_ITS | CONTINUITY OF CARE DOCUMENT ---
Author Name johnson ornelas Address Unknown Organization [facility] Address [address] [place] [address] Phone [phone] Care Team Providers Care Natural Resource Economist Name Role Phone Kilo ACHARYA, Nilay Unavailable [phone] TORIN HUTCHINS MD Unavailable TORIN HUTCHINS MD Unavailable INSURANCE PROVIDERS Payer name Policy type / Coverage type [place] red democrat ID AETNA SENIOR SUPPLEMENTAL INS Commercial insuran ce company [id number] [place] MED[place]ARE Medicare [id number]
--- OUTSIDE RECORDS SUMMARY | 2024-09-14 09:48 | XMS_ITS | Clinical Summary ---
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 Gender Identity Male 01/23/2021 8:46 PM CDT Sexual Orientation Not on file Obstetrics History Last Filed Vital Signs Vital Sign Reading Time Taken Comments Blood Pressure 180/96 03/11/2024 9:04 AM VEHICLE PAINTER Pulse 77 03/11/2024 9:04 AM VEHICLE PAINTER Temperature - - Respiratory Rate 12 10/08/2019 8:28 AM CDT Oxygen Saturation 99% 03/11/2024 9:04 AM VEHICLE PAINTER Inhaled Oxygen Concentration - - Weight 70.8 kg (156 lb) 03/11/2024 9:04 AM VEHICLE PAINTER Height 165.1 cm (5' 5) 03/11/2024 9:04 AM VEHICLE PAINTER Body Mass Index 25.96 03/11/2024 9:04 AM VEHICLE PAINTER Plan of Treatment Health Maintenance Due Date [...] season) 2023 01/02/2021, 06/20/2020, 05/30/2020 Influenza Vaccine (Season Ended) 2024 Insurance MEDICARE COMMERCIAL GENERIC MEDICARE AETNA SENIOR SUPPLEMENT MEDICARE COMMERCIAL GENERIC Care Teams Public Health Aides Teacher Relationship Specialty Start Date End Date Shan Rubio MD [address] [place] [phone] PCP - General Family Medicine 03/11/24
--- OUTSIDE RECORDS SUMMARY | 2024-09-14 09:49 | XMS_ITS | Continuity of Care Document ---
Author Organization [employer] [facility] Address [address] [place] [address] Phone Care Team Providers Care Electric Power Machine Operator Name Role Phone Bell OD, Melchor Unavailable Unavailable Procedures Procedure Date Cntct Lens Hydrophil Bifocal Medical Tax Eye Exam & Treatment Refraction Cntct Lens Hydrophil Bifocal [facility] Contact Lens/es Other Type [facility] Cntct Lens Hydrophil Bifocal [facility] Contact Lens Check Contact Lens Check Eye Exam & Treatment Refraction CL Replacement - [employer] Disp W/BW Soft [facility] CL Replacement - [employer] Disp W/BW Soft [facility] CL Replacement - [employer]ist[employer] Disp W/BW Soft [employer] Eye Exam & Treatment Refraction CL Replacement - Vistak[employer] Disp W/BW Soft [employer] CL Replacement - [employer]ist[employer] Disp W/BW Soft [employer] CL Replacement - [employer] Disp W/BW Soft [employer] CL Replacement - [employer] Disp W/BW Soft [facility] Medical CL Replacement - [employer] Disp W/BW Soft [facility] Medical Eye Exam & Treatment Refraction CL Replacement - [employer] Disp W/BW Soft [facility] Medical CL Replacement - [employer] Disp W/BW Soft [facility] Medical Advance Directives Directive Yes / No Effective Date File Name No Information Encounters Encounter Description Practice Location Reason(s) For Visit Diagnoses Date Provider Providers Copied on Encounter [facility], [address] [place] [address] [address], [place], [place], [id number], tel:[phone] [facility] No Information 4-201 0 Bell OD Melchor. [address], [place], [place], [facility], [place]. tel:[phone] [facility], [address] [place] [address] [address], [place], [place], [address], [place] tel:[phone] [facility] No Information 7-201 0 Bell OD Melchor. [address], [place], [facility], [place]. tel:[phone] [facility], [address] [place] [address] [address], [place], [place], [address], [place] tel:[phone] [facility] No Information 5-201 0 Bell OD Melchor. [address], [place], [address], [place]. tel:[phone] [facility], [address] [place] [address] [address], [place], [place], [address], [place] tel:[phone] [facility] No Information 6-201 0 Bell OD Melchor. [address], [place], [facility], [place]. tel:[phone] [facility], [address], [place], [place], [address], [place] tel:[phone] [facility] No Information Dec-0 9-200 9 Bell OD Melchor. [address], [place], [facility], . tel:[phone] [facility], [address] [place] [address] [address], [place], [place], [address], [place] tel:[phone] [facility] No Information Nov-1 8-200 9 Bell OD Melchor. [address], [place], [facility], . tel:[phone] [facility], [address] [place] [address] [address], [place], [place], [address], [place] tel:[phone] [facility] No Information Nov-1 1-200 9 Bell OD Melchor. [address], [place], [facility], [place]. tel:[phone] [facility], [address] [place] [address] [address], [place], [place], [address], [place] tel:[phone] [facility] No Information Edwardo-0 1-200 9 Bell OD Melchor. [address] , [address], [place], [facility], [place]. tel:[phone] [facility], [address] [place] [address] [address], [place], [place], [address], [place] tel:[phone] [facility] No Information May-2 3-200 9 Bell OD Melchor. [address], [place], [facility], . tel:[phone] [facility], [address] [place] [address] [address], [place], [place], [address], [place] tel:[phone] [facility] No Information Nov-0 3-200 8 Bell OD Melchor. [facility] , [address], [place], [facility], [place]. tel:[phone] [facility], [address] [place] [address] [address], [place], [place], [address], [place] tel:[phone] [facility] No Information Edwardo-0 2-200 8 Bell OD Melchor. [address] , [address], [place], [facility], [place]. tel:[phone] [facility], [address] [place] [address] [address], [place], [place], [address], [place] tel:[phone] [facility] No Information Matthias-3 0-200 8 Bell OD Melchor. [address] , [address], [place], [facility], [place]. tel:[phone] [facility], [address] [place] [address] [address], [place], [place], [address], [place] tel:[phone] [facility] No Information May-1 9-200 8 Bell OD Melchor. [facility] , [address], [place], [facility], [place]. tel:[phone] [facility], [address] [place] [address] [address], [place], [place], [address], [place] tel:[phone] [facility] No Information Mar-3 1-200 8 Bell OD Melchor. [address] , [address], [place], [facility], [place]. tel:[phone] [facility], [address] [place] [address] [address], [place], [place], [address], [place] tel:[phone] [facility] No Information Dec-2 8-200 7 Bell OD Melchor. [address] [place], [place] [address]ate Center , [address], [place], [facility], . tel:[phone] [facility], [address] [place] [address] [address], [place], [place], [address], tel:[phone] [facility] No Information Aug-0 8-200 7 Bell OD Melchor. [address] [place], [place] [address]ate Center , [address], [place], [facility], [place]. tel:[phone] [facility], [address] [place] [address] [address], [place], [place], [address], tel:[phone] [facility] No Information Matthias-2 7-200 7 Bell OD Melchor. [address] [place] [address] [address], [address], [place], [facility], [place]. tel:[phone] [facility], [address] [place] [address] [address], [place], [place], [address], tel:[phone] [facility] No Information Apr-2 0-200 7 Bell OD Melchor. [address] [place] [address] [address], [address], [place], [facility], [place]. tel:[phone] [facility], [address] [place] [address] [address], [place], [place], [address], tel:[phone] [facility] No Information Dec-2 6-200 6 Bell OD Melchor. [address] [place], [place] [address]ate Center , [address], [place], [address], [place]. tel:[phone] Family History Family Member Type Diagnosis Age [...]
== END 2024-09-14 09:10 | disposition home or self-care (01) ==
PROVIDERS: PCP Family Medicine; Visit Provider Podiatrist Foot & Ankle Surgery
DX: B35.1 Tinea unguium (principal)
CPT/HCPCS: 36415; 84450; 84460

== ENCOUNTER 2024-10-19 15:01 | Outpatient (CLI) | payer MEDICARE, SELFPAY ==
--- OUTSIDE RECORDS SUMMARY | 2024-10-19 15:05 | XMS_ITS | Referral Summary ---
Author Organization [facility] [facility] Address [address] [place] [address] Phone Care Team Providers Care Survey Interviewer Name Role Phone Shan Rubio MD Primary [...] Hypertension 03/11/2024 Coronary artery disease invo lving [place] coronary artery of [place] heart without angina pectoris 07/22/2018 Incomplete left [...] on file Legal Sex Male 4:26 AM DIRECTOR CALL CENTER SALES Gender Identity Male 01/23/2021 8:46 PM CDT Sexual Orientation Not on file Last Filed Vital Signs Vital Sign Reading Time Taken Comments Blood Pressure 180/96 03/11/2024 9:04 AM DIRECTOR CALL CENTER SALES Pulse 77 03/11/2024 9:04 AM DIRECTOR CALL CENTER SALES Temperature - - Respiratory Rate 12 10/08/2019 8:28 AM CDT Oxygen Saturation 99% 03/11/2024 9:04 AM DIRECTOR CALL CENTER SALES Inhaled Oxygen Concentration - - Weight 70.8 kg (156 lb) 03/11/2024 9:04 AM DIRECTOR CALL CENTER SALES Height 165.1 cm (5' 5) 03/11/2024 9:04 AM DIRECTOR CALL CENTER SALES Body Mass Index 25.96 03/11/2024 9:04 AM DIRECTOR CALL CENTER SALES Plan of Treatment Not on file Insurance MEDICARE COMMERCIAL GENERIC MEDICARE AETNA SENIOR SUPPLEMENT MEDICARE COMMERCIAL GENERIC Care Teams Survey Interviewer Relationship Specialty Start Date End Date Shan Rubio MD [address] [facility] [address] [place], [place] [id number] PCP - General Family Medicine 03/11/24
--- OUTSIDE RECORDS SUMMARY | 2024-10-19 15:05 | XMS_ITS | Continuity of Care Document ---
Author Organization [facility] Address [address] [place] [address] Phone Care Team Providers Care Rim Buster Name Role Phone Bell OD, Melchor Unavailable Unavailable Procedures Procedure Date Cntct Lens Hydrophil Bifocal Medical Tax Eye Exam & Treatment Refraction Cntct Lens Hydrophil Bifocal FP Complete Medical Contact Lens/es Other Type FP Complete Medical Cntct Lens Hydrophil Bifocal FP Complete Medical Contact Lens Check Contact Lens Check Eye Exam & Treatment Refraction CL Replacement - [employer] Disp W/BW Soft FP Complete Medical CL Replacement - [employer] Disp W/BW Soft FP Complete Medical CL Replacement - [employer] Disp W/BW Soft [employer] Eye Exam & Treatment Refraction CL Replacement - [employer] Disp W/BW Soft [employer] CL Replacement - [employer] Disp W/BW Soft [employer] CL Replacement - [employer] Disp W/BW Soft [employer] CL Replacement - [employer] Disp W/BW Soft [...] Diagnoses Date Provider Providers Copied on Encounter [facility], [address] [place] [address] [address], [place], [place], [address], tel:[phone] [facility] [place] No Information 4-201 0 Bell OD Melchor. [address], [place], [facility], [place]. tel:[phone] [facility], [address] [place] [address] [address], [place], [place], [address], [place] tel:[phone] [facility] [place] No Information 7-201 0 Bell OD Melchor. [address], [place], [facility], [place]. tel:[phone] [facility], [address] [place] [address] [address], [place], [place], [address], [place] tel:[phone] [facility] [place] No Information 5-201 0 Bell OD Melchor. [address], [place], [address], [place]. tel:[phone] [facility], [address] [place] [address] [address], [place], [place], [address], [place] tel:[phone] [facility] [place] No Information 6-201 0 Bell OD Melchor. [address], [place], [facility], [place]. tel:[phone] [facility], [address], [place], [place], [address], [place] tel:[phone] [facility] No Information Dec-0 9-200 9 Bell OD Melchor. [address] , [address], [place], [facility], . tel:[phone] [facility], [address] [place] [address] [address], [place], [place], [address], [place] tel:[phone] [facility] No Information Nov-1 8-200 9 Bell OD Melchor. [address] , [address], [place], [facility], . tel:[phone] [facility], [address] [place] [address] [address], [place], [place], [address], [place] tel:[phone] [facility] No Information Nov-1 1-200 9 Bell OD Melchor. [address] , [address], [place], [facility], [place]. tel:[phone] [facility], [address] [place] [address] [address], [place], [place], [address], [place] tel:[phone] [facility] No Information Edwardo-0 1-200 9 Bell OD Melchor. [address] , [address], [place], [facility], [place]. tel:[phone] [facility], [address] [place] [address] [address], [place], [place], [address], [place] tel:[phone] [facility] No Information May-2 3-200 9 Bell OD Melchor. [address] , [address], [place], [facility], . tel:[phone] [facility], [address] [place] [address] [address], [place], [place], [address], [place] tel:[phone] [facility] No Information Nov-0 3-200 8 Bell OD Melchor. [facility] , [address], [place], [facility], [place]. tel:[phone] [facility], [address] [place] [address] [address], [place], [place], [address], [place] tel:[phone] [facility] No Information Edwardo-0 2-200 8 Bell OD Melchor. [address] [facility] , [address], [place], [facility], [place]. tel:[phone] [facility], [address] [place] [address] [address], [place], [place], [address], [place] tel:[phone] [facility] [place] No Information Matthias-3 0-200 8 Bell OD Melchor. [address] [facility] , [address], [place], [facility], [place]. tel:[phone] [facility], [address] [place] [address] [address], [place], [place], [address], [place] tel:[phone] [facility] No Information May-1 9-200 8 Bell OD Melchor. [facility] , [address], [place], [facility], [place]. tel:[phone] [facility], [address] [place] [address] [address], [place], [place], [address], [place] tel:[phone] [facility] No Information Mar-3 1-200 8 Bell OD Melchor. [address] [facility] , [address], [place], [facility], [place]. tel:[phone] [facility], [address] [place] [address] [address], [place], [place], [address], [place] tel:[phone] [facility] No Information Dec-2 8-200 7 Bell OD Melchor. [address] [place], [place] [address]ate Center , [address], [place], [facility], . tel:[phone] [facility], [address] [place] [address] [address], [place], [place], [address], tel:[phone] [facility] No Information Aug-0 8-200 7 Bell OD Melchor. [address] [place], [place] [address]ate Center , [address], [place], [facility], [place]. tel:[phone] [facility], [address] [place] [address] [address], [place], [place], [address], tel:[phone] [facility] No Information Matthias-2 7-200 7 Bell OD Melchor. [address] [place] [address] [address], [address], [place], [facility], [place]. tel:[phone] [facility], [address] [place] [address] [address], [place], [place], [address], tel:[phone] [facility] No Information Apr-2 0-200 7 Bell OD Melchor. [address] [place] [address] [address], [address], [place], [facility], [place]. tel:[phone] [facility], [address] [place] [address] [address], [place], [place], [address], tel:[phone] [facility] No Information Dec-2 6-200 6 Bell OD Melchor. [address] [place], [place] [address]ate Center , [address], [place], [address], [place]. tel:[phone] Family History Family Member Type Diagnosis Age At Onset No Information Payers Payer name Insurance type Covered constitution party ID Authoriza tion(s) No Information Social [...]
--- OUTSIDE RECORDS SUMMARY | 2024-10-19 15:05 | XMS_ITS | Clinical Summary ---
Author Organization [facility] Address [address] [place] [address] Care Team Providers Care [employer] Name Role Phone Emory Hu Primary Care Provider Source Comments [facility] [employer],non-owned Affiliates and Associated Physician Practices is amultiple site organization consisting of ambulatory clinics and hospital sitesin [place], [place], [place] and [place]. This disclosure is being madepursuant to the Care Everywhere program and may not contain all information available regarding this patient. Last updated 17.[facility] [employer] Allergies Active Allergy Reactions Criticality Noted Date [...] season) 2023 DEPRESSION SCREENING 04/08/2024 INFLUENZA VACCINE (#1) 2024 HEPATITIS B VACCINE Aged Out No [...] MEDICARE MEDICARE SUPPLEMENT PAYOR GENERIC Care Teams [employer] Relationship Specialty Start Date End Date Emory Hu DO PCP - General Internal Medicine 11/08/14
--- OUTSIDE RECORDS SUMMARY | 2024-10-19 15:05 | XMS_ITS | Clinical Summary ---
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 07/22/2018 Incomplete left [...] on file Legal Sex Male 4:26 AM INBOUND INGREDIENT LOGISTICS SPECIALIST Gender Identity Male 01/23/2021 8:46 PM CDT Sexual Orientation Not on file Obstetrics History Last Filed Vital Signs Vital Sign Reading Time Taken Comments Blood Pressure 180/96 03/11/2024 9:04 AM INBOUND INGREDIENT LOGISTICS SPECIALIST Pulse 77 03/11/2024 9:04 AM INBOUND INGREDIENT LOGISTICS SPECIALIST Temperature - - Respiratory Rate 12 10/08/2019 8:28 AM CDT Oxygen Saturation 99% 03/11/2024 9:04 AM INBOUND INGREDIENT LOGISTICS SPECIALIST Inhaled Oxygen Concentration - - Weight 70.8 kg (156 lb) 03/11/2024 9:04 AM INBOUND INGREDIENT LOGISTICS SPECIALIST Height 165.1 cm (5' 5) 03/11/2024 9:04 AM INBOUND INGREDIENT LOGISTICS SPECIALIST Body Mass Index 25.96 03/11/2024 9:04 AM INBOUND INGREDIENT LOGISTICS SPECIALIST Plan of Treatment Health Maintenance Due Date [...] 2023 01/02/2021, 06/20/2020, 05/30/2020 Influenza Vaccine (#1) 2024 Insurance MEDICARE COMMERCIAL GENERIC MEDICARE [employer] SENIOR SUPPLEMENT MEDICARE COMMERCIAL GENERIC Care Teams Edger Tailer Relationship Specialty Start Date End Date Shan Rubio MD [address] [place] [phone] PCP - General Family Medicine 03/11/24
[2024-10-19 16:44] LABS: Free T4 Free Thyroxine 0.92 ng/dL (0.78-2.19)
[2024-10-19 17:22] LABS: Alanine Aminotransferase 24 U/L (6-50); Albumin Level 3.8 g/dL (3.5-5.1); Alkaline Phosphatase 59 U/L (38-126); Anion Gap 3 mmol/L (4-12); Aspartate Amino Transferase 42 U/L (17-59); Bilirubin,Total 0.3 mg/dL (0.2-1.3); Blood Urea Nitrogen 21 mg/dL (9-20); Calcium 9.3 mg/dL (8.4-10.2); Carbon Dioxide 27 mmol/L (22-30); Chloride 106 mmol/L (98-107); Estimated Glomerular Filt Rate > 60; Glucose 95 mg/dL (65-110); Potassium 4.4 mmol/L (3.4-5.0); Sodium 136 mmol/L (137-145); Total Protein 6.4 g/dL (6.3-8.2)
[2024-10-19 17:57] LABS: Thyroid Stimulating Hormone 4.330 uIU/mL (0.465-4.680)
== END 2024-10-19 15:02 | disposition home or self-care (01) ==
PROVIDERS: PCP Family Medicine; Visit Provider Family Medicine
DX: E78.5 Hyperlipidemia, unspecified (principal); I10 Essential (primary) hypertension; E03.9 Hypothyroidism, unspecified
CPT/HCPCS: 36415; 80053; 84439; 84443

== ENCOUNTER 2024-12-14 13:59 | Outpatient (CLI) | payer MEDICARE, SELFPAY ==
--- OUTSIDE RECORDS SUMMARY | 2009-11-08 19:00 | XMS_ITS | Continuity of Care Document ---
Author Organization [email or web address] [facility] Address [address] [place] [address] Phone Care Team Providers Care Drill Doctor Name Role Phone Bell OD, Melchor Unavailable Unavailable Procedures Procedure Date Cntct Lens Hydrophil Bifocal Medical Tax Eye Exam & Treatment Refraction Cntct Lens Hydrophil Bifocal [employer] Medical Contact Lens/es Other Type [employer] Medical Cntct Lens Hydrophil Bifocal [employer] Medical Contact Lens Check Contact Lens Check Eye Exam & Treatment Refraction CL Replacement - [employer] Disp W/BW Soft [employer] Medical CL Replacement - [employer] Disp W/BW Soft [employer] Medical CL Replacement - [employer] Disp W/BW Soft Triage Eye Exam & Treatment Refraction CL Replacement - [employer] Disp W/BW Soft Triage CL Replacement - [employer] Disp W/BW Soft Triage CL Replacement - [employer] Disp W/BW Soft Triage CL Replacement - [employer] Disp W/BW Soft [facility] Medical CL Replacement - [employer] Disp W/BW Soft [facility] Medical Eye Exam & Treatment Refraction CL Replacement - [employer] Disp W/BW Soft [facility] Medical CL Replacement - [employer] Disp W/BW Soft [facility] Medical Advance Directives Directive Yes / No Effective Date File Name No Information Encounters Encounter Description Practice Location Reason(s) For Visit Diagnoses Date Provider Providers Copied on Encounter [facility], [address] [place] [address] [address], [place], [place], [id number], tel:[phone] [facility] [place] No Information 4-201 0 Bell OD Melchor. [address], [place], [place], [facility], [place]. tel:[phone] [facility], [address] [place] [address] [address], [place], [place], [address], [place] tel:[phone] [facility] [place] No Information 7-201 0 Bell OD Melchor. [address], [place], [facility], [place]. tel:[phone] [facility], [address] [place] [address] [address], [place], [place], [address], [place] tel:[phone] [facility] [place] No Information 5-201 0 Bell OD Melchor. [address], [place], [address], [place]. tel:[phone] [facility], [address] [place] [address] [address], [place], [place], [address], [place] tel:[phone] [facility] [place] No Information 6-201 0 Bell OD Melchor. [address], [place], [facility], [place]. tel:[phone] [facility], [address], [place], [place], [id number], [place] tel:[phone] SEC [facility] No Information Dec-0 9-200 9 Bell OD Melchor. [address], [place], [facility], . tel:[phone] [facility], [address] [place] [address] [address], [place], [place], [address], [place] tel:[phone] SEC [facility] No Information Nov-1 8-200 9 Bell OD Melchor. [address], [place], [facility], . tel:[phone] [facility], [address] [place] [address] [address], [place], [place], [address], [place] tel:[phone] SEC [facility] No Information Nov-1 1-200 9 Bell OD Melchor. [address], [place], [facility], [place]. tel:[phone] [facility], [address] [place] [address] [address], [place], [place], [address], [place] tel:[phone] SEC [facility] No Information Edwardo-0 1-200 9 Bell OD Melchor. [address], [place], [facility], [place]. tel:[phone] [facility], [address] [place] [address] [address], [place], [place], [address], [place] tel:[phone] SEC [facility] No Information May-2 3-200 9 Bell OD Melchor. [address], [place], [facility], . tel:[phone] [facility], [address] [place] [address] [address], [place], [place], [address], [place] tel:[phone] [facility] No Information Nov-0 3-200 8 Bell OD Melchor. [facility] [address] , [address], [place], [facility], [place]. tel:[phone] [facility], [address] [place] [address] [address], [place], [place], [address], [place] tel:[phone] [facility] No Information Edwardo-0 2-200 8 Bell OD Melchor. [address] , [address], [place], [facility], [place]. tel:[phone] [facility], [address] [place] [address] [address], [place], [place], [address], [place] tel:[phone] [facility] [place] No Information Matthias-3 0-200 8 Bell OD Melchor. [address] , [address], [place], [facility], [place]. tel:[phone] [facility], [address] [place] [address] [address], [place], [place], [address], [place] tel:[phone] [facility] No Information May-1 9-200 8 Bell OD Melchor. [facility] [address] , [address], [place], [facility], [place]. tel:[phone] [facility], [address] [place] [address] [address], [place], [place], [address], [place] tel:[phone] [facility] No Information Mar-3 1-200 8 Bell OD Melchor. [address] , [address], [place], [facility], [place]. tel:[phone] [facility], [address] [place] [address] [address], [place], [place], [address], [place] tel:[phone] [facility] No Information Dec-2 8-200 7 Bell OD Melchor. [address] [place], [place] [address]ate [address] , [address], [place], [facility], . tel:[phone] [facility], [address] [place] [address] [address], [place], [place], [address], tel:[phone] [facility] No Information Aug-0 8-200 7 Bell OD Melchor. [address] [place], [place] [address]ate [address] , [address], [place], [facility], [place]. tel:[phone] [facility], [address] [place] [address] [address], [place], [place], [address], tel:[phone] [facility] No Information Matthias-2 7-200 7 Bell OD Melchor. [address] [place] [address] [address], [address], [place], [facility], [place]. tel:[phone] [facility], [address] [place] [address] [address], [place], [place], [address], tel:[phone] [facility] No Information Apr-2 0-200 7 Bell OD Melchor. [address] [place] [address] [address], [address], [place], [facility], [place]. tel:[phone] [facility], [address] [place] [address] [address], [place], [place], [address], tel:[phone] [facility] No Information Dec-2 6-200 6 Bell OD Melchor. [address] [place], [place] [address]ate Center , [address], [place], [address], [place]. tel:[phone] Family History Family Member Type Diagnosis Age At Onset No Information Payers Payer name Insurance type Covered libertarian ID Authoriza tion(s) No Information Social History Type Description Quantity Date Captured Comments Sex Male Smoking Status No Information Chief Complaint And Reason For Visit No Information Reason For Referral Reason For Referral No Information History Of Present Illness Encounter Date Complaint History Of Prese nt Illness No Information Functional Status Date Functional Assessmen t No Information Instructions Date Instruction Additional Infor mation No Information Assessments Type Assessment Date No Information Patient Care Teams Name Effective Dates (start - stop) Status Members No Information
--- NOTE | ~2024-12-14 | XR_ITS ---
EXAMINATION: XR hand RT min 3V, XR hand LT min 3V DATE: 12/14/2024 14:20 INDICATION: Joint effusions and other specified soft tissue disorders at the bilateral hands TECHNIQUE: 1. Posteroanterior, oblique and lateral views of the left hand were obtained. 2. Posteroanterior, oblique and lateral views of the right hand were obtained. COMPARISON: None. FINDINGS: Left hand: No fracture. There is chronic tear of the scapholunate ligament with secondary dorsal intercalated segment instability (DISI) and proximal migration of the capitate into the markedly widened scapholunate interval. There is also secondary scapholunate advanced collapse (SLAC) wrist with advanced osteoar thritis at the radial scaphoid articulation. Chondrocalcinosis at the triangular fibrocartilage complex and about the second and third metacarpophalangeal joints where there is mild palmar subluxation and additional severe osteoarthritis. This constellation of findings can be seen in the setting of calcium pyrophosphate deposition (CPPD) disease. Additional mild polyarticular osteoarthritis at many of the remaining joints in the left hand. Several surgical clips the soft tissues along the radial aspect of the distal forearm. Right hand: There are similar tear of the scapholunate ligament with less severe widening of the scapholunate interval and secondary dorsal intercalated segment instability (DISI). There is also a severe secondary scapholunate advanced collapse (SLAC) wrist with only moderate osteoarthritis at the radial scaphoid articulation. Similar mild palmar subluxation at the second and third metacarpophalangeal joints with moderate osteoarthritis. Chondrocalcinosis and moderate osteoarthritis at the first metacarpophalangeal joint. Mild osteoarthritis of the remaining joints in the right hand. IMPRESSION: 1. 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 2. Chondrocalcinosis at the left wrist and at the left second and third right first metacarpophalangeal joints. This along with additional atypically severe osteoarthritis at the bilateral second and third metacarpophalangeal joints and the scapholunate ligament insufficiency pattern of findings seen in the setting of calcium pyrophosphate deposition (CPPD) disease. Reviewed, dictated and finalized at location A. IMPRESSION: 1. 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 2. Chondrocalcinosis at the left wrist and at the left second and third right f irst metacarpophalangeal joints. This along with additional atypically severe o steoarthritis at the bilateral second and third metacarpophalangeal joints and the scapholunate ligament insufficiency pattern of findings seen in the setting of calcium pyrophosphate deposition (CPPD) disease.
--- OUTSIDE RECORDS SUMMARY | 2024-12-14 14:03 | XMS_ITS | Clinical Summary ---
Author Organization [facility] Address [address] [facility] [place] [address] Care Team Providers Care License And Permit Specialist Name Role Phone Emory Hu Primary Care Provider Source Comments [facility] [employer],non-owned Affiliates and Associated Physician Practices is amultiple site organization consisting of ambulatory clinics and hospital sitesin [place], [place], [place] and [place]. This disclosure is being madepursuant to the Care Everywhere program and may not contain all information available regarding this patient. Last updated 17.[facility] [employer] Allergies Active Allergy Reactions Criticality Noted Date [...] Done Comments MEDICARE AWV 12 MONTHS 1945 DTAP/TDAP/TD VACCINES (1 - Tdap) 1964 PNEUMOCOCCAL VACCINE 50+ (1 of 1 - PCV) 10/15/1995 ZOSTER VACCINE (1 of 2) 10/15/1995 Respiratory Syncytial Virus (RSV) Vaccine Pt: or over 60 yrs (1 - 1-dose 75+ series) 2020 DEPRESSION SCREENING 04/08/2024 COVID-19 VACCINE (1 - 2023-2 5 season) 2024 INFLUENZA VACCINE (#1) 2024 HEPATITIS B VACCINE [...] Insurance MEDICARE MEDICARE SUPPLEMENT PAYOR GENERIC MEDICARE MEDICARE SUPPLEMENT PAYOR GENERIC MEDICARE MEDICARE SUPPLEMENT PAYOR GENERIC MEDICARE MEDICARE SUPPLEMENT PAYOR GENERIC Care Teams License And Permit Specialist Relationship Specialty Start Date End Date Emory Hu DO PCP - General Internal Medicine 11/08/14
--- OUTSIDE RECORDS SUMMARY | 2024-12-14 14:03 | XMS_ITS | Clinical Summary ---
Author Organization [facility] [employer] [facility] Address [address] [place] [address] Phone Care Team Providers Care String Laster Name Role Phone Shan Rubio MD Primary [...] Hypertension 03/11/2024 Coronary artery disease invo lving [place] coronary artery of [place] heart without angina pectoris 07/22/2018 Incomplete left [...] on file Legal Sex Male 4:26 AM [employer] Gender Identity Male 01/23/2021 8:46 PM CDT Sexual Orientation Not on file Obstetrics History Last Filed Vital Signs Vital Sign Reading Time Taken Comments Blood Pressure 180/96 03/11/2024 9:04 AM [employer] Pulse 77 03/11/2024 9:04 AM [employer] Temperature - - Respiratory Rate 12 10/08/2019 8:28 AM CDT Oxygen Saturation 99% 03/11/2024 9:04 AM [employer] Inhaled Oxygen Concentration - - Weight 70.8 kg (156 lb) 03/11/2024 9:04 AM [employer] Height 165.1 cm (5' 5) 03/11/2024 9:04 AM [employer] Body Mass Index 25.96 03/11/2024 9:04 AM [employer] Plan of Treatment Health Maintenance Due Date [...] 05/30/2020 Influenza Vaccine (#1) 2024 Insurance MEDICARE [facility] Address: [address] [address] [place] [address] COMMERCIAL GENERIC MEDICARE [employer] SENIOR SUPPLEMENT MEDICARE COMMERCIAL GENERIC Care Teams String Laster Relationship Specialty Start Date End Date Shan Rubio MD [address] [place] [phone] PCP - General Family Medicine 03/11/24
== END 2024-12-14 14:00 | disposition home or self-care (01) ==
PROVIDERS: PCP Family Medicine
DX: M79.89 Other specified soft tissue disorders (principal); M25.431 Effusion, right wrist; M25.432 Effusion, left wrist
CPT/HCPCS: 73130

== ENCOUNTER 2025-01-22 08:11 | Outpatient (CLI) | payer MEDICARE, SELFPAY ==
--- OUTSIDE RECORDS SUMMARY | 2009-11-08 19:00 | XMS_ITS | Continuity of Care Document ---
Author Organization [facility] Address [address] [facility] [address] [place] [address] Phone Care Team Providers Care Microbiology Lab Technician Name Role Phone Bell OD, Melchor Unavailable Unavailable Procedures Procedure Date Cntct Lens Hydrophil Bifocal Medical Tax Eye Exam & Treatment Refraction Cntct Lens Hydrophil Bifocal [facility] Contact Lens/es Other Type [facility] Cntct Lens Hydrophil Bifocal [facility] Contact Lens Check Contact Lens Check Eye Exam & Treatment Refraction CL Replacement - [employer] Disp W/BW Soft [facility] CL Replacement - [employer] Disp W/BW Soft [facility] CL Replacement - [employer] Disp W/BW Soft [employer] Eye Exam & Treatment Refraction CL Replacement - [employer] Disp W/BW Soft [employer] CL Replacement - [employer] Disp W/BW Soft [employer] CL Replacement - [employer] Disp W/BW Soft [employer] CL Replacement - [employer] Disp W/BW Soft [facility] CL Replacement - [employer] Disp W/BW Soft [facility] Eye Exam & Treatment Refraction CL Replacement - [employer] Disp W/BW Soft [facility] CL Replacement - [employer] Disp W/BW Soft [facility] Advance Directives Directive Yes / No Effective Date File Name No Information Encounters Encounter Description Practice Location Reason(s) For Visit Diagnoses Date Provider Providers Copied on Encounter [facility], [address] [place] [address] [address], [place], [place], [id number], tel:[phone] [facility] [place] No Information 4-201 0 Bell OD Melchor. [address], [place], [place], [facility], [place]. tel:[phone] [facility], [address] [place] [address] [address], [place], [place], [address], [place] tel:[phone] [facility] [place] No Information 7-201 0 Bell OD Melchor. [address], [place], [facility], [place]. tel:[phone] [facility], [address] [place] [address] [address], [place], [place], [address], [place] tel:[phone] SEC [facility] [place] No Information 5-201 0 Bell OD Melchor. [address], [place], [address], [place]. tel:[phone] [facility], [address] [place] [address] [address], [place], [place], [address], [place] tel:[phone] SEC [facility] [place] No Information 6-201 0 Bell OD Melchor. [address], [place], [facility], [place]. tel:[phone] [facility], [address], [place], [place], [address], [place] tel:[phone] SEC [facility] No Information Dec-0 9-200 9 Bell OD Melchor. [address] , [address], [place], [facility], . tel:[phone] [facility], [address] [place] [address] [address], [place], [place], [address], [place] tel:[phone] [facility] No Information Nov-1 8-200 9 Bell OD Melchor. [address], [place], [facility], . tel:[phone] [facility], [address] [place] [address] [address], [place], [place], [address], [place] tel:[phone] [facility] No Information Nov-1 1-200 9 Bell OD Melchor. [address], [place], [facility], [place]. tel:[phone] [facility], [address] [place] [address] [address], [place], [place], [address], [place] tel:[phone] [facility] No Information Edwardo-0 1-200 9 Bell OD Melchor. [address] , [address], [place], [facility], [place]. tel:[phone] [facility], [address] [place] [address] [address], [place], [place], [address], [place] tel:[phone] [facility] No Information May-2 3-200 9 Bell OD Melchor. [address] , [address], [place], [facility], . tel:[phone] [facility], [address] [place] [address] [address], [place], [place], [address], [place] tel:[phone] [facility] No Information Nov-0 3-200 8 Bell OD Melchor. [facility] [address] , [address], [place], [facility], [place]. tel:[phone] [facility], [address] [place] [address] [address], [place], [place], [address], [place] tel:[phone] [facility] No Information Edwardo-0 2-200 8 Bell OD Melchor. [address] , [address], [place], [facility], [place]. tel:[phone] [facility], [address] [place] [address] [address], [place], [place], [address], [place] tel:[phone] [facility] [place] No Information Matthias-3 0-200 8 Bell OD Melchor. [address] , [address], [place], [facility], [place]. tel:[phone] [facility], [address] [place] [address] [address], [place], [place], [address], [place] tel:[phone] [facility] No Information May-1 9-200 8 Bell OD Melchor. [facility] , [address], [place], [facility], [place]. tel:[phone] [facility], [address] [place] [address] [address], [place], [place], [address], [place] tel:[phone] [facility] No Information Mar-3 1-200 8 Bell OD Melchor. [address] , [address], [place], [facility], [place]. tel:[phone] [facility], [address] [place] [address] [address], [place], [place], [address], [place] tel:[phone] SEC [facility] No Information Dec-2 8-200 7 Bell OD Melchor. [address] [place], [place] [address]ate [address] , [address], [place], [facility], . tel:[phone] [facility], [address] [place] [address] [address], [place], [place], [address], tel:[phone] [facility] No Information Aug-0 8-200 7 Bell OD Melchor. [address] [place], [place] [address]ate [address] , [address], [place], [facility], [place]. tel:[phone] [facility], [address] [place] [address] [address], [place], [place], [address], tel:[phone] [facility] No Information Matthias-2 7-200 7 Bell OD Melchor. [address] [place] [address] [address], [address], [place], [facility], [place]. tel:[phone] [facility], [address] [place] [address] [address], [place], [place], [address], tel:[phone] [facility] No Information Apr-2 0-200 7 Bell OD Melchor. [address] [place] [address] [address], [address], [place], [facility], [place]. tel:[phone] [facility], [address] [place] [address] [address], [place], [place], [address], tel:[phone] [facility] No Information Dec-2 6-200 6 Bell OD Melchor. [address] [place], [place] [address] , [address], [place], [address], [place]. tel:[phone] Family History Family Member Type Diagnosis Age At Onset No Information Payers Payer name Insurance type Covered republican ID Authoriza tion(s) No Information Social History [...]
--- NOTE | ~2025-01-22 | US_ITS ---
EXAMINATION: US venous doppler [facility] DATE: 01/22/2025 09:00 INDICATION: Left lower limb pain and swelling TECHNIQUE: Grayscale ultrasound images without and with compression and Doppler ultrasound images of the left lower extremity veins were obtained. COMPARISON: None. FINDINGS: The visualized portions of left common femoral vein, profunda (deep) femoral vein, femoral vein, popliteal vein, peroneal veins, posterior tibial veins and greater saphenous vein outflow are patent. IMPRESSION: 1. No deep venous thrombosis in the left lower limb. Reviewed, dictated and finalized at location A.
--- OUTSIDE RECORDS SUMMARY | 2025-01-22 08:16 | XMS_ITS | Clinical Summary ---
Author Organization [facility] [employer] [facility] Address [address] [place] [address] Phone Care Team Providers Care Healthcare Advisory Services Manager Name Role Phone Shan Rubio MD Primary [...] Hypertension 03/11/2024 Coronary artery disease invo lving [place] coronary artery of [place] heart without angina pectoris 07/22/2018 Incomplete left [...] on file Legal Sex Male 4:26 AM RN PRIOR AUTHORIZATION Gender Identity Male 01/23/2021 8:46 PM CDT Sexual Orientation Not on file Obstetrics History Last Filed Vital Signs Vital Sign Reading Time Taken Comments Blood Pressure 180/96 03/11/2024 9:04 AM RN PRIOR AUTHORIZATION Pulse 77 03/11/2024 9:04 AM RN PRIOR AUTHORIZATION Temperature - - Respiratory Rate 12 10/08/2019 8:28 AM CDT Oxygen Saturation 99% 03/11/2024 9:04 AM RN PRIOR AUTHORIZATION Inhaled Oxygen Concentration - - Weight 70.8 kg (156 lb) 03/11/2024 9:04 AM RN PRIOR AUTHORIZATION Height 165.1 cm (5' 5) 03/11/2024 9:04 AM RN PRIOR AUTHORIZATION Body Mass Index 25.96 03/11/2024 9:04 AM RN PRIOR AUTHORIZATION Plan of Treatment Health Maintenance Due Date Last Done Comments Depression Screening 1945 Fall Risk Assessment 1945 Hepatitis C Screening 1945 DTaP/Tdap/Td Vaccine (1 - Tdap) 1956 Hepatitis B Screening 10/15/1963 Pneumococcal vaccine 65+ (1 of 1 - PCV) 10/15/1995 Zoster Vaccine (1 of 2) 10/15/1995 Abdominal Aortic Aneurysm (A AA) Screen 2010 Well Visit 65+ 2010 Covid-19 Vaccine ( season) 2024 01/02/2021, 06/20/2020, 05/30/2020 Influenza Vaccine (#1) 2024 Insurance MEDICARE [facility] Address: [address] [address] [place] [address] COMMERCIAL GENERIC MEDICARE [employer] SENIOR SUPPLEMENT MEDICARE COMMERCIAL GENERIC Care Teams Healthcare Advisory Services Manager Relationship Specialty Start Date End Date Shan Rubio MD [address] [place] [phone] PCP - General Family Medicine 03/11/24
--- OUTSIDE RECORDS SUMMARY | 2025-01-22 08:16 | XMS_ITS | Clinical Summary ---
Author Organization [facility] Address [address] [place] [address] Care Team Providers Care Shaft Headman Name Role Phone Emory Hu Primary Care Provider Source Comments [facility] [employer],non-owned Affiliates and Associated Physician Practices is amultiple site organization consisting of ambulatory clinics and hospital sitesin [place], [place], [place] and [place]. This disclosure is being madepursuant to the Care Everywhere program and may not contain all information available regarding this patient. Last updated 17.[facility] [employer] Allergies Active Allergy Reactions Criticality Noted Date [...] MEDICARE MEDICARE SUPPLEMENT PAYOR GENERIC Care Teams Shaft Headman Relationship Specialty Start Date End Date Emory Hu DO PCP - General Internal Medicine 11/08/14
== END 2025-01-22 08:12 | disposition home or self-care (01) ==
PROVIDERS: PCP Family Medicine; Visit Provider Physician Assistant
DX: M79.89 Other specified soft tissue disorders (principal)
CPT/HCPCS: 93971